=== PATIENT | female | born 1950 | race Caucasian/White ===

== ENCOUNTER 2017-08-25 00:21 | Emergency (ER) | payer OTHER, MEDICARE ==
--- NOTE | 2017-08-25 01:00 | EDM.PDOC ---
ED HPI GENERAL MEDICAL PROBLEM - General Chief Complaint: Back Pain or Injury Stated Complaint: BACK PAIN Time Seen by Provider: 08/25/17 00:57 - History of Present Illness INITIAL COMMENTS - FREE TEXT/NARRATIVE: HISTORY AND PHYSICAL: History of present illness: Patient 66-year-old female presents with concern of upper back pain is worse with movement she noticed that tonight she denies any known trauma denies numbness weakness denies chest pain shortness of breath palpitations or any other concern. Review of systems: As per history of present illness and below otherwise all systems reviewed and negative. Past medical history: As per history of present illness and as reviewed below otherwise noncontributory. Surgical history: As per history of present illness and as reviewed below otherwise noncontributory. Social history: No reported history of drug or alcohol abuse. Family history: As per history of present illness and as reviewed below otherwise noncontributory. Physical exam: HEENT: Atraumatic, normocephalic, pupils reactive, negative for conjunctival pallor or scleral icterus, mucous membranes moist, throat clear, neck supple, nontender, trachea midline. Lungs: Clear to auscultation, breath sounds equal bilaterally, chest nontender. Heart: S1S2, regular, negative for clicks, rubs, or JVD. Abdomen: Soft, nondistended, nontender. Negative for masses or hepatosplenomegaly. Negative for costovertebral tenderness. Pelvis: Stable nontender. 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: Deferred. Rectal: Deferred. Extremities: Atraumatic, negative for cords or calf pain. Neurovascular unremarkable. Neuro: Awake, alert, oriented. Cranial nerves II through XII unremarkable. Cerebellum unremarkable. Motor and sensory unremarkable throughout. Exam nonfocal. Back: Patient is some mild paravertebral tenderness of the upper thoracic spine there's no vertebral body or point tenderness Diagnostics: X-ray thoracic spine x-ray chest EKG Therapeutics: None Impression: #1 upper back pain ( probable muscle skeletal etiology) Definitive disposition and diagnosis as appropriate pending reevaluation and review of above. Lower Back Pain Score (Numeric/FACES): 6 - Related Data Allergies Allergy/AdvReac Type Severity Reaction Status Date / Time iodine Allergy Hives Verified 08/25/17 00:36 Home Meds: Home Meds Folic Acid 1 mg PO DAILY 08/25/17 [History] Methotrexate 2.5 mg PO WEEKLY 08/25/17 [History] Metoprolol Succinate 25 mg PO DAILY 08/25/17 [History] Rosuvastatin Calcium 5 mg PO DAILY 08/25/17 [History] Past Medical History HEENT History: Reports: None Cardiovascular History: Reports: High Cholesterol, Hypertension Respiratory History: Reports: None Gastrointestinal History: Reports: GERD 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 History: Reports: None [employer] FORMER History: Reports: Musculoskeletal History: Reports: RA Neurological History: Reports: None Psychiatric History: Reports: Anxiety, Depression Endocrine/Metabolic History: Reports: None Hematologic History: Reports: None Immunologic History: Reports: None Oncologic (Cancer) History: Reports: None Dermatologic History: Reports: None - Infectious Disease History Infectious Disease History: Reports: Chicken Pox - Past Surgical History Head Surgeries/Procedures: Reports: None HEENT Surgical History: Reports: None Female Surgical History: Reports: Hysterectomy Musculoskeletal Surgical History: Reports: None Social & Family History - Tobacco Use Smoking Status *Q: Never Smoker Second Hand Smoke Exposure: No - Caffeine Use Caffeine Use: Reports: Coffee - Recreational Drug Use Recreational Drug Use: No ED ROS GENERAL - Review of Systems Review Of Systems: ROS reveals no pertinent complaints other than HPI. ED EXAM, GENERAL - Physical Exam Exam: See Below (See dictation) Course - Vital Signs Last Recorded V/S: Last Vital Signs Temp 36.4 C 08/25/17 00:23 Pulse 66 08/25/17 00:23 Resp 18 08/25/17 00:23 BP 132/73 08/25/17 00:23 Pulse Ox 95 08/25/17 00:23 - Orders/Labs/Meds Orders: Active Orders 24 hr Category Date Time Status EKG Documentation Completion [RC] STAT Care 08/25/17 00:45 Active Chest 1V Frontal [CR] Stat Exams 08/25/17 00:45 Ordered Thoracic Spine 3V [CR] Stat Exams 08/25/17 00:45 Ordered Departure - Departure Time of Disposition: 00:59 Disposition: Home, Self-Care 01 Condition: Good Clinical Impression: Back pain - Discharge Information Referrals: Adrian Pierre MD [Primary Care Provider] - Additional Instructions: The following information is given to patients seen in the emergency department who are being discharged to home. This information is to outline your options for follow-up care. We provide all patients seen in our emergency department with a follow-up referral. The need for follow-up, as well as the timing and circumstances, are variable depending upon the specifics of your emergency department visit. If you don't have a primary care physician on staff, we will provide you with a referral. We always advise you to contact your personal physician following an emergency department visit to inform them of the circumstance of the visit and for follow-up with them and/or the need for any referrals to a consulting specialist. The emergency department will also refer you to a specialist when appropriate. This referral assures that you have the opportunity for followup care with a specialist. All of these measure are taken in an effort to provide you with optimal care, which includes your followup. Under all circumstances we always encourage you to contact your private physician who remains a resource for coordinating your care. When calling for followup care, please make the office aware that this follow-up is from your recent emergency room visit. If for any reason you are refused follow-up, please contact the [facility] emergency department at and asked to speak to the emergency department charge nurse. Tylenol No. 3 as prescribed follow-up private medical doctor wanted today's return as needed as discussed - My Orders Last 24 Hours: My Active Orders 08/25/17 00:45 EKG Documentation Completion [RC] STAT Chest 1V Frontal [CR] Stat Thoracic Spine 3V [CR] Stat - Assessment/Plan Last 24 Hours: My Active Orders 08/25/17 00:45 EKG Documentation Completion [RC] STAT Chest 1V Frontal [CR] Stat Thoracic Spine 3V [CR] Stat
--- NOTE | 2017-08-25 18:26 | CR ---
EXAM DATE: 08/25/17 PATIENT'S AGE: 66 Patient: EUGENE CLARKE Facility: [place], [place] Site . Site : 1950 Study: XRay Spine Thoracic [id number] 1:19:27 AM Ordering Physician: Doctor Arthur Final Report: INDICATION: Upper back pain TECHNIQUE: Thoracic spine 3 view. COMPARISON: None FINDINGS: Bones: Alignment is normal. No fractures or significant bone lesions. Joints: Disc space narrowing and degenerative changes lower thoracic spine with kyphosis. Soft tissues: Unremarkable. Miscellaneous: Hiatal hernia. IMPRESSION: Degenerative changes lower thoracic spine with kyphosis Dictated by Rigo Craig MD @ 08/25/2017 1:43:45 AM Dictated by: Rigo Craig MD @ 08/25/2017 01:43:50 (Electronic Signature) Report Signed by Proxy. [facility]
--- NOTE | 2017-08-25 18:26 | CR ---
EXAM DATE: 08/25/17 PATIENT'S AGE: 66 Patient: EUGENE CLARKE Facility: [place], [place] Site . Site : 1950 Study: XRay Chest [id number]/[id number] 1:19:04 AM Ordering Physician: Doctor Arthur Final Report: INDICATION: Upper back pain TECHNIQUE: Chest 1 view. COMPARISON: 07/10/2011 FINDINGS: Cardiovascular and mediastinum: Heart size and vasculature are normal in caliber and appearance. Mediastinum is within normal limits. Hiatal hernia. Lungs and pleural space: Scarring versus atelectasis right costophrenic angle. No sign of infiltrate or mass. No sign of pleural effusion. No pneumothorax. Bones and soft tissues: No significant findings. IMPRESSION: No acute pulmonary or cardiac abnormalities. Hiatal hernia. Dictated by Rigo Craig MD @ 08/25/2017 1:42:25 AM Dictated by: Rigo Craig MD @ 08/25/2017 01:42:32 (Electronic Signature) Report Signed by Proxy. [facility]
== END 2017-08-25 02:21 | disposition home or self-care (01) ==
LOC: MW.ED 00:21
DX: M54.6 Pain in thoracic spine (principal); I10 Essential (primary) hypertension; Z88.8 Allergy status to other drugs, medicaments and biological substances; Z79.899 Other long term (current) drug therapy
CPT/HCPCS: 71010; 71010-26; 72072; 72072-26; 93005; 99282; 99284-25

== ENCOUNTER 2017-09-01 19:01 | Emergency (ER) | payer OTHER, MEDICARE ==
[2017-09-01] MEDS ORDERED: Cyclobenzaprine 10 MG Tab PO ONE (19:54)
--- NOTE | 2017-09-01 20:00 | EDM.PDOC ---
ED HPI GENERAL MEDICAL PROBLEM - General Chief Complaint: Back Pain or Injury Stated Complaint: right side abdominal pain and back pain Time Seen by Provider: 09/01/17 19:55 Source of Information: Reports: Patient, Old Records - History of Present Illness INITIAL COMMENTS - FREE TEXT/NARRATIVE: She presents with back pain She had tylenol #3 which she stopped. She said that it gave her headaches. She declines any steroids or opioids. She has rheumatoid arthritis treated with methotrexate which she states has been very effective. The pain seems to start in her mid right back paraspinal area and radiates along the rib area anteriorly. The pain is associated with a feeling of local muscular pulling in the area. middle back Pain Score (Numeric/FACES): 8 - Related Data Allergies Allergy/AdvReac Type Severity Reaction Status Date / Time iodine Allergy Hives Verified 09/01/17 19:25 Home Meds: Home Meds Folic Acid 1 mg PO DAILY 08/25/17 [History] Methotrexate 2.5 mg PO WEEKLY 08/25/17 [History] Metoprolol Succinate 25 mg PO DAILY 08/25/17 [History] Rosuvastatin Calcium 5 mg PO DAILY 08/25/17 [History] Past Medical History - Past Health History Medical/Surgical History: Denies Medical/Surgical History HEENT History: Reports: None Cardiovascular History: Reports: High Cholesterol, Hypertension Respiratory History: Reports: None Gastrointestinal History: Reports: GERD 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 History: Reports: None [employer] History: Reports: Musculoskeletal History: Reports: RA Neurological History: Reports: None Psychiatric History: Reports: Anxiety, Depression Endocrine/Metabolic History: Reports: None Hematologic History: Reports: None Immunologic History: Reports: None Oncologic (Cancer) History: Reports: None Dermatologic History: Reports: None - Infectious Disease History Infectious Disease History: Reports: Chicken Pox - Past Surgical History Head Surgeries/Procedures: Reports: None HEENT Surgical History: Reports: None Female Surgical History: Reports: Hysterectomy Musculoskeletal Surgical History: Reports: None Social & Family History - Family History Family Medical History: Noncontributory - Tobacco Use Smoking Status *Q: Never Smoker Second Hand Smoke Exposure: No - Caffeine Use Caffeine Use: Reports: Coffee - Recreational Drug Use Recreational Drug Use: No ED ROS GENERAL - Review of Systems Review Of Systems: See Below Constitutional: Denies: Fever, Chills Respiratory: Denies: Shortness of Breath ED EXAM, UPPER BACK/NECK PAIN - Physical Exam Exam: See Below Text/Narrative:: alert some swelling bilaterally of MCP's but without tenderness area of slight discomfort just to the right lateral area of about T 9 with some radiation anteriorly along the course of the associated ninth rib No real definite tenderness but she associates this area with the pain which comes and goes and which is currently better. Course - Vital Signs Last Recorded V/S: Last Vital Signs Temp 97 F 09/01/17 19:10 Pulse 89 09/01/17 19:10 Resp 18 09/01/17 19:10 BP 124/81 09/01/17 19:10 Pulse Ox 97 09/01/17 19:10 - Orders/Labs/Meds Meds: Medications Discontinued Medications Generic Name Dose Route Start Last Admin Trade Name Freq PRN Reason Stop Dose Admin Cyclobenzaprine HCl 10 mg 09/01/17 19:54 Flexeril PO 09/01/17 19:55 ONETIME ONE Departure - Departure Time of Disposition: 19:59 Disposition: Home, Self-Care 01 Condition: Good Clinical Impression: Back pain - Discharge Information Referrals: Adrian Pierre MD [Primary Care Provider] - Additional Instructions: recheck with DR Peterson. advised that the medicine might cause some drowsiness.
== END 2017-09-01 20:44 | disposition home or self-care (01) ==
LOC: MW.ED 19:01
DX: M54.6 Pain in thoracic spine (principal); I10 Essential (primary) hypertension; E78.00 Pure hypercholesterolemia, unspecified; F32.9 Major depressive disorder, single episode, unspecified
CPT/HCPCS: 99283; A9270; 99282

== ENCOUNTER 2017-09-02 03:41 | Emergency (ER) | payer MEDICARE, OTHER ==
[2017-09-02] MEDS ORDERED: Nalbuphine 10 MG/1 ML Vial IM ONE (04:04)
--- NOTE | 2017-09-02 04:10 | EDM.PDOC ---
ED HPI GENERAL MEDICAL PROBLEM - General Chief Complaint: Back Pain or Injury Stated Complaint: BACK PAIN Time Seen by Provider: 09/02/17 04:05 Source of Information: Reports: Patient, RN - History of Present Illness INITIAL COMMENTS - FREE TEXT/NARRATIVE: She was seen here by myself a few hours ago. She fell asleep at home but then awoke with severe right sided back pain. Now the pain does not radiate around her chest but is along the right side of her thoracic spine. No reported trauma PMHx RA ROS no fever no vomiting last visit she declined any opioid pain medicines but she agrees to such now. middle back Pain Score (Numeric/FACES): 10 - Related Data Allergies Allergy/AdvReac Type Severity Reaction Status Date / Time iodine Allergy Hives Verified 09/02/17 03:43 Home Meds: Home Meds Folic Acid 1 mg PO DAILY 08/25/17 [History] Methotrexate 2.5 mg PO WEEKLY 08/25/17 [History] Metoprolol Succinate 25 mg PO DAILY 08/25/17 [History] Rosuvastatin Calcium 5 mg PO DAILY 08/25/17 [History] Aspirin 81 mg PO DAILY 09/02/17 [History] Ranitidine [Zantac] 150 mg PO BID 09/02/17 [History] Past Medical History - Past Health History Medical/Surgical History: Denies Medical/Surgical History HEENT History: Reports: None Cardiovascular History: Reports: High Cholesterol, Hypertension Respiratory History: Reports: None Gastrointestinal History: Reports: GERD 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 History: Reports: None [employer] History: Reports: Musculoskeletal History: Reports: RA Neurological History: Reports: None Psychiatric History: Reports: Anxiety, Depression Endocrine/Metabolic History: Reports: None Hematologic History: Reports: None Immunologic History: Reports: None Oncologic (Cancer) History: Reports: None Dermatologic History: Reports: None - Infectious Disease History Infectious Disease History: Reports: Chicken Pox - Past Surgical History Head Surgeries/Procedures: Reports: None HEENT Surgical History: Reports: None Female Surgical History: Reports: Hysterectomy Musculoskeletal Surgical History: Reports: None Social & Family History - Family History Family Medical History: Noncontributory - Tobacco Use Smoking Status *Q: Never Smoker Second Hand Smoke Exposure: No - Caffeine Use Caffeine Use: Reports: Coffee - Recreational Drug Use Recreational Drug Use: No ED ROS GENERAL - Review of Systems Review Of Systems: See Below (as per HPI) ED EXAM, UPPER BACK/NECK PAIN - Physical Exam Exam: See Below Text/Narrative:: alert appears uncomfortable neck supple right paravertebral musculature tender from about T 4 to T 10 normal mentation Course - Vital Signs Last Recorded V/S: Last Vital Signs Temp 97.8 F 09/02/17 03:41 Pulse 125 H 09/02/17 03:41 Resp 20 09/02/17 03:41 BP 123/67 09/02/17 03:41 Pulse Ox 96 09/02/17 03:41 - Orders/Labs/Meds Meds: Medications Discontinued Medications Generic Name Dose Route Start Last Admin Trade Name Freq PRN Reason Stop Dose Admin Nalbuphine HCl 20 mg 09/02/17 04:04 Nubain IM 09/02/17 04:05 ONETIME ONE Departure - Departure Time of Disposition: 04:07 Disposition: Home, Self-Care 01 Condition: Fair Clinical Impression: Back pain - Discharge Information Referrals: Adrian Pierre MD [Primary Care Provider] - Forms: ED Department Discharge Additional Instructions: norco may cause drowsiness, constipation and be habit forming. Do not use tylenol with norco follow up if not improving.
== END 2017-09-02 04:42 | disposition home or self-care (01) ==
LOC: MW.ED 03:41
DX: M54.6 Pain in thoracic spine (principal); I10 Essential (primary) hypertension; E78.00 Pure hypercholesterolemia, unspecified; F32.9 Major depressive disorder, single episode, unspecified; Z79.82 Long term (current) use of aspirin; Z79.899 Other long term (current) drug therapy; Z88.8 Allergy status to other drugs, medicaments and biological substances
CPT/HCPCS: 96372; 99283; J2300

== ENCOUNTER 2017-09-07 17:08 | Observation (INO) | payer OTHER, MEDICARE ==
[2017-09-07] MEDS ORDERED: Sodium Chloride 0.9% 1,000 ML IV ONE (17:56)
[2017-09-07] MEDS ORDERED: Sodium Chloride 0.9% 10 ML Syringe FLUSH PRN (17:56)
[2017-09-07] MEDS ORDERED: Sodium Chloride 0.9% 2.5 ML Syringe FLUSH PRN (17:56)
--- NOTE | 2017-09-07 18:01 | EDM.PDOC ---
ED HPI GENERAL MEDICAL PROBLEM - General Chief Complaint: General Stated Complaint: HARD TIME BREATHING Time Seen by Provider: 09/07/17 17:47 - History of Present Illness INITIAL COMMENTS - FREE TEXT/NARRATIVE: HISTORY AND PHYSICAL: History of present illness: The patient is a 66-year-old female with a history of hypertension and rheumatoid arthritis for which she takes metoprolol and methotrexate and who presents with several weeks of poor appetite and an acceleration of these symptoms over the last 10 days where she has not been eating and drinking very much at all due to anorexia. The patient that she has been forcing herself to eat and has been trying to drink fluids but she knows that she is "dehydrated" . She's had nasal congestion and sinus drainage for the last one month and at the beginning of August she had an upper respiratory infection for which she followed up with a provider at [facility] [address]. She was seen in our emergency department at the end of August 3 times over a one-week period for back pain and given medication and she has seen a chiropractor just several days ago who did a correction on her ribs and she has felt much better from that perspective. The patient denies any headache or fever she has no cough or chest pain and no shortness of breath. She's making urine but less than usual and there is no urinary pain. She has no nausea or vomiting doesn't have fullness or bloating of her abdomen is no abdominal pain. She's having small bowel movements. Patient says she tolerates by mouth but just doesn't have a desire to eat or drink. She last saw her primary care physician a week and a half ago for knee pain and he gave her a steroid injection but she did not discuss with him these other symptoms. SHe also lightheaded and has generalized weakness but is not passing out or blacking out. She currently has no back pain. Patient does not have palpitations Although the patient never complained of shortness of breath to me or in this past 10 days she was noted to be somewhat short of breath when walking back to the room by nursing Please note that the patient has been seen twice at [facility] [address], once by Dr. Isaac, at the beginning of August for the cold and congestion she had and once by Dr. Pierre approximately 7-10 days ago for her knee pain for which she received that steroid injection. [facility] the end of August for the back pain and once by the chiropractor 2 days ago. Throughout all of these visits the patient says that she has never mentioned to any of these providers about her lack of appetite and poor by mouth intake and feelings of dehydration. Review of systems: As per history of present illness and below otherwise all systems reviewed and negative. Past medical history: As per history of present illness and as reviewed below otherwise noncontributory. Surgical history: As per history of present illness and as reviewed below otherwise noncontributory. Social history: No reported history of drug or alcohol abuse. Family history: As per history of present illness and as reviewed below otherwise noncontributory. Physical exam: General: Well-developed well-nourished female who moves easily in the ED without distress vital signs of the note by me HEENT: Atraumatic, normocephalic, pupils reactive, negative for conjunctival pallor or scleral icterus, mucous membranes tacky throat clear, neck supple, nontender, trachea midline. Lungs: Clear to auscultation, breath sounds equal bilaterally, chest nontender. Heart: S1S2, regular rhythm but tachycardic rate on my evaluation, negative for clicks, rubs, or JVD. Abdomen: Soft, nondistended, nontender. Bowel sounds are hypoactive and there is no tympany on percussion Negative for masses or hepatosplenomegaly. Negative for costovertebral tenderness. Pelvis: Stable nontender. 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: Deferred. Rectal: Deferred. Extremities: Atraumatic, negative for cords or calf pain. Neurovascular unremarkable. Full range of motion without defects or deficits Neuro: Awake, alert, oriented. Cranial nerves II through XII unremarkable. Cerebellum unremarkable. Motor and sensory unremarkable throughout. Exam nonfocal. Diagnostics: EKG CBC CMP amylase lipase UA urine culture if indicated TSH chest x-ray orthostatic vitals Therapeutics: IV O2 monitor IV fluids These note that patient had positive orthostatic vitals by both pulse and blood pressure. But she had no dizziness or lightheadedness with those changes. Please also note that the patient had rest and the bed was noted to drop her sats to 8990% but was not dysmetric and does not complain of any shortness of breath. Oxygen was applied and her sats bumped up easily. 1915: Case was discussed with the hospitalist Dr. Wilson who agrees to observation admission and does not request blood cultures or lactic acid level and requests Rocephin and Zithromax to be given. The case was also discussed with the patient who is aware of the findings and agrees to the admission. She still has not produced urine which will need to be collected on the floor. Impression: Right basilar pneumonia with Clinical Dehydration and Orthostasis, history of anorexia Definitive disposition and diagnosis as appropriate pending reevaluation and review of above. - Related Data Allergies Allergy/AdvReac Type Severity Reaction Status Date / Time iodine Allergy Hives Verified 09/07/17 17:42 Home Meds: Home Meds Folic Acid 1 mg PO DAILY 08/25/17 [History] Methotrexate 2.5 mg PO WEEKLY 08/25/17 [History] Metoprolol Succinate 25 mg PO DAILY 08/25/17 [History] Rosuvastatin Calcium 5 mg PO DAILY 08/25/17 [History] Aspirin 81 mg PO DAILY 09/02/17 [History] Ranitidine [Zantac] 150 mg PO BID 09/02/17 [History] Past Medical History - Past Health History Medical/Surgical History: Denies Medical/Surgical History HEENT History: Reports: None Cardiovascular History: Reports: High Cholesterol, Hypertension Respiratory History: Reports: None Gastrointestinal History: Reports: GERD 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 History: Reports: None 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: Musculoskeletal History: Reports: RA Neurological History: Reports: None Psychiatric History: Reports: Anxiety, Depression Endocrine/Metabolic History: Reports: None Hematologic History: Reports: None Immunologic History: Reports: None Oncologic (Cancer) History: Reports: None Dermatologic History: Reports: None - Infectious Disease History Infectious Disease History: Reports: Chicken Pox, Measles, Mumps - Past Surgical History Head Surgeries/Procedures: Reports: None HEENT Surgical History: Reports: None Female Surgical History: Reports: Hysterectomy Musculoskeletal Surgical History: Reports: None Social & Family History - Family History Family Medical History: Noncontributory - Tobacco Use Smoking Status *Q: Never Smoker Second Hand Smoke Exposure: No - Caffeine Use Caffeine Use: Reports: Coffee - Recreational Drug Use Recreational Drug Use: No ED ROS GENERAL - Review of Systems Review Of Systems: ROS reveals no pertinent complaints other than HPI. ED EXAM, GENERAL - Physical Exam Exam: See Below (See dictation) Course - Vital Signs Last Recorded V/S: Last Vital Signs Temp 37.4 C 09/07/17 17:39 Pulse 134 H 09/07/17 17:39 Resp 18 09/07/17 17:39 BP 135/85 09/07/17 17:39 Pulse Ox 95 09/07/17 17:39 Orthostatic Blood Pressure [ 95/51 Standing] Orthostatic Blood Pressure [ 112/62 Sitting] Orthostatic Blood Pressure [ 126/83 Supine] - Orders/Labs/Meds Orders: Active Orders 24 hr Category Date Time Status Patient Status [ADT] Stat ADT 09/07/17 19:24 Ordered Cardiac Monitoring [RC] . DIRECTED Care 09/07/17 17:55 Active EKG Documentation Completion [RC] STAT Care 09/07/17 17:55 Active Orthostatic Vital Signs [RC] ASDIRECTED Care 09/07/17 17:56 Active Oxygen Therapy, ED [RC] ASDIRECTED Care 09/07/17 17:55 Active Pulse Oximetry [RC] ASDIRECTED Care 09/07/17 17:55 Active Chest 2V [CR] Stat Exams 09/07/17 17:56 Taken UA W/MICROSCOPIC [URIN] Stat Lab 09/07/17 17:55 Uncollected Azithromycin [Zithromax] Med 09/07/17 19:23 Once 500 mg PO ONETIME ONE Sodium Chloride 0.9% [Normal Saline] 1,000 ml Med 09/07/17 19:15 Active IV ASDIRECTED Sodium Chloride 0.9% [Saline Flush] Med 09/07/17 17:56 Active 10 ml FLUSH ASDIRECTED PRN Sodium Chloride 0.9% [Saline Flush] Med 09/07/17 17:56 Active 2.5 ml FLUSH ASDIRECTED PRN cefTRIAXone [Rocephin in Dextrose,Iso-Osm 1 GM/50 ML] 1 Med 09/07/17 19:23 Ordered gm Premix Bag 1 bag IV ONETIME Saline Lock Insert [OM.PC] Stat Oth 09/07/17 17:55 Ordered Medication Orders Sodium Chloride (Normal Saline) 1,000 mls @ 125 mls/hr IV ASDIRECTED MARRY Sodium Chloride (Saline Flush) 10 ml FLUSH ASDIRECTED PRN PRN Reason: Keep Vein Open Last Admin: 09/07/17 18:22 Dose: 10 ml Sodium Chloride (Saline Flush) 2.5 ml FLUSH ASDIRECTED PRN PRN Reason: Keep Vein Open Last Admin: 09/07/17 18:22 Dose: 2.5 ml Labs: Laboratory Tests 09/07/17 09/07/17 Range/Units 18:07 18:07 WBC 8.64 (4.0-11.0) K/uL RBC 4.66 (4.30-5.90) M/uL Hgb 13.4 (12.0-16.0) g/dL Hct 40.8 (36.0-46.0) % MCV 87.6 (80.0-98.0) fL MCH 28.8 (27.0-32.0) pg MCHC 32.8 (31.0-37.0) g/dL RDW Std Deviation 43.5 (28.0-62.0) fl RDW Coeff of Mert 14 (11.0-15.0) % Plt Count 381 (150-400) K/uL MPV 9.10 (7.40-12.00) fL Neut % (Auto) 72.0 (48.0-80.0) % Lymph % (Auto) 18.3 (16.0-40.0) % [place] % (Auto) 8.2 (0.0-15.0) % Eos % (Auto) 1.2 (0.0-7.0) % Baso % (Auto) 0.3 (0.0-1.5) % Neut # (Auto) 6.2 H (1.4-5.7) K/uL Lymph # (Auto) 1.6 (0.6-2.4) K/uL [place] # (Auto) 0.7 (0.0-0.8) K/uL Eos # (Auto) 0.1 (0.0-0.7) K/uL Baso # (Auto) 0.0 (0.0-0.1) K/uL Nucleated RBC % 0.0 /100WBC Nucleated RBCs # 0 K/uL Sodium 140 (136-146) mmol/L Potassium 3.8 (3.5-5.1) mmol/L Chloride 105 (98-110) mmol/L Carbon Dioxide 22 (21-31) mmol/L BUN 8 (6.0-23.0) mg/dL Creatinine 0.7 (0.6-1.5) mg/dL Est Cr Clr Drug Dosing 58.85 mL/min Estimated GFR (MDRD) > 60.0 ml/min Glucose 120 H (60-110) mg/dL Calcium 9.9 (8.8-10.8) mg/dL Total Bilirubin 0.3 (0.1-1.5) mg/dL AST 20 (5-40) IU/L ALT 26 (8-54) IU/L Alkaline Phosphatase 147 (40-150) Total Protein 7.7 (6.0-8.0) g/dL Albumin 3.7 (3.4-4.8) g/dL Globulin 4.0 H (2.0-3.5) g/dL Albumin/Globulin Ratio 0.9 L (1.3-2.8) Amylase 57 (10-90) U/L Lipase 32 (7-80) U/L TSH 3rd Generation 3.19 (0.47-5.0) uIU/mL Meds: Medications Generic Name Dose Route Start Last Admin Trade Name Freq PRN Reason Stop Dose Admin Sodium Chloride 1,000 mls @ 125 mls/hr 09/07/17 19:15 Normal Saline IV ASDIRECTED MARRY Sodium Chloride 10 ml 09/07/17 17:56 09/07/17 18:22 Saline Flush FLUSH 10 ml ASDIRECTED PRN Administration Keep Vein Open Sodium Chloride 2.5 ml 09/07/17 17:56 09/07/17 18:22 Saline Flush FLUSH 2.5 ml ASDIRECTED PRN Administration Keep Vein Open Discontinued Medications Generic Name Dose Route Start Last Admin Trade Name Freq PRN Reason Stop Dose Admin Sodium Chloride 1,000 mls @ 999 mls/hr 09/07/17 17:56 09/07/17 18:23 Normal Saline IV 09/07/17 18:56 999 mls/hr STAT ONE Administration Departure - Departure Time of Disposition: 19:26 Disposition: Refer to Observation Condition: Good Clinical Impression: Orthostasis Pneumonia Qualifiers: Pneumonia type: due to unspecified organism Laterality: right Lung location: lower lobe of lung Qualified Code(s): J18.1 - Lobar pneumonia, unspecified organism - Discharge Information Referrals: Adrian Pierre MD [Primary Care Provider] - Forms: ED Department Discharge - My Orders Last 24 Hours: My Active Orders 09/07/17 17:55 Cardiac Monitoring [RC] . DIRECTED EKG Documentation Completion [RC] STAT Oxygen Therapy, ED [RC] ASDIRECTED Pulse Oximetry [RC] ASDIRECTED UA W/MICROSCOPIC [URIN] Stat Saline Lock Insert [OM.PC] Stat 09/07/17 17:56 Orthostatic Vital Signs [RC] ASDIRECTED Chest 2V [CR] Stat Sodium Chloride 0.9% [Saline Flush] 10 ml FLUSH ASDIRECTED PRN Sodium Chloride 0.9% [Saline Flush] 2.5 ml FLUSH ASDIRECTED PRN 09/07/17 19:15 Sodium Chloride 0.9% [Normal Saline] 1,000 ml IV ASDIRECTED 09/07/17 19:23 Azithromycin [Zithromax] 500 mg PO ONETIME ONE cefTRIAXone [Rocephin in Dextrose,Iso-Osm 1 GM/50 ML] 1 gm Premix Bag 1 bag IV ONETIME 09/07/17 19:24 Patient Status [ADT] Stat - Assessment/Plan Last 24 Hours: My Active Orders 09/07/17 17:55 Cardiac Monitoring [RC] . DIRECTED EKG Documentation Completion [RC] STAT Oxygen Therapy, ED [RC] ASDIRECTED Pulse Oximetry [RC] ASDIRECTED UA W/MICROSCOPIC [URIN] Stat Saline Lock Insert [OM.PC] Stat 09/07/17 17:56 Orthostatic Vital Signs [RC] ASDIRECTED Chest 2V [CR] Stat Sodium Chloride 0.9% [Saline Flush] 10 ml FLUSH ASDIRECTED PRN Sodium Chloride 0.9% [Saline Flush] 2.5 ml FLUSH ASDIRECTED PRN 09/07/17 19:15 Sodium Chloride 0.9% [Normal Saline] 1,000 ml IV ASDIRECTED 09/07/17 19:23 Azithromycin [Zithromax] 500 mg PO ONETIME ONE cefTRIAXone [Rocephin in Dextrose,Iso-Osm 1 GM/50 ML] 1 gm Premix Bag 1 bag IV ONETIME 09/07/17 19:24 Patient Status [ADT] Stat
[2017-09-07 18:33] LABS: CHLORIDE,CL 105 mmol/L (98-110); SODIUM,NA 140 mmol/L (136-146)
[2017-09-07] MEDS ORDERED: Azithromycin 250 MG Tab PO ONE (19:23)
[2017-09-07] MEDS ORDERED: cefTRIAXone 1 GM in Premix Bag 1 BAG IV ONE (19:23)
[2017-09-07] MEDS: Sodium Chloride 0.9% 1,000 ML IV SCH (19:54)
--- NOTE | 2017-09-07 19:57 | PCM.HP ---
H&P History of Present Illness - General Admit Problem/Dx: Admission Diagnosis/Problem Admission Diagnosis/Problem Pneumonia - History of Present Illness Initial Comments - Free Text/Narative: 66 yo female with pmh of hypertension and RA, who presents to the ED with complaints of feeling dehydrated. She reports poor appetite for past several weeks with nasal congestion. She denies any shortness of breath, cough or fevers. She was noted in the ED to have orthostatic hypotension with drop of blood pressure of 112/62 to 95/51. CXR reported right basilar pneumonia. She was given IV fluids, rocephin and azithromycin and referred to hospital for observation. - Related Data Allergies/Adverse Reactions: Allergies Allergy/AdvReac Type Severity Reaction Status Date / Time iodine Allergy Hives Verified 09/07/17 17:42 Home Medications: Home Meds Folic Acid 1 mg PO DAILY 08/25/17 [History] Methotrexate 2.5 mg PO WEEKLY 08/25/17 [History] Metoprolol Succinate 25 mg PO DAILY 08/25/17 [History] Rosuvastatin Calcium 5 mg PO DAILY 08/25/17 [History] Aspirin 81 mg PO DAILY 09/02/17 [History] Ranitidine [Zantac] 150 mg PO BID 09/02/17 [History] Azithromycin [IJD: Azithromycin] 250 mg PO DAILY 4 Days #4 tab 09/08/17 [Rx] Past Medical History - Past Health History Medical/Surgical History: Denies Medical/Surgical History HEENT History: Reports: None Cardiovascular History: Reports: High Cholesterol, Hypertension Respiratory History: Reports: None Gastrointestinal History: Reports: GERD 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 History: Reports: None 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: Musculoskeletal History: Reports: RA Neurological History: Reports: None Psychiatric History: Reports: Anxiety, Depression Endocrine/Metabolic History: Reports: None Hematologic History: Reports: None Immunologic History: Reports: None Oncologic (Cancer) History: Reports: None Dermatologic History: Reports: None - Infectious Disease History Infectious Disease History: Reports: Chicken Pox, Measles, Mumps - Past Surgical History Head Surgeries/Procedures: Reports: None HEENT Surgical History: Reports: None Female Surgical History: Reports: Hysterectomy Musculoskeletal Surgical History: Reports: None Social & Family History - Family History Family Medical History: Noncontributory - Tobacco Use Smoking Status *Q: Never Smoker Second Hand Smoke Exposure: No - Caffeine Use Caffeine Use: Reports: Coffee - Recreational Drug Use Recreational Drug Use: No H&P Review of Systems - Review of Systems: Review Of Systems: ROS reveals no pertinent complaints other than HPI. Exam - Exam Exam: See Below - Vital Signs Vital Signs: Last Vital Signs Temp 37.4 C 09/07/17 17:39 Pulse 134 H 09/07/17 17:39 Resp 18 09/07/17 17:39 BP 135/85 09/07/17 17:39 Pulse Ox 95 09/07/17 17:39 Orthostatic Blood Pressure [ 95/51 Standing] Orthostatic Blood Pressure [ 112/62 Sitting] Orthostatic Blood Pressure [ 126/83 Supine] Weight: 68.2 kg - Exam General: Alert, Oriented, 4 HEENT: Mucosa Moist & [place] Lungs: Clear to Auscultation, Normal Respiratory Effort Cardiovascular: Regular Rate, Regular Rhythm GI/Abdominal Exam: Soft, Non-Tender Extremities: Non-Tender, No Pedal Edema Skin: Warm, Dry, Intact Neurological: No: Focal Deficit - Patient Data Lab Results Last 24 hrs: Laboratory Results - last 24 hr 09/07/17 09/07/17 Range/Units 18:07 18:07 WBC 8.64 (4.0-11.0) K/uL RBC 4.66 (4.30-5.90) M/uL Hgb 13.4 (12.0-16.0) g/dL Hct 40.8 (36.0-46.0) % MCV 87.6 (80.0-98.0) fL MCH 28.8 (27.0-32.0) pg MCHC 32.8 (31.0-37.0) g/dL RDW Std Deviation 43.5 (28.0-62.0) fl RDW Coeff of Mert 14 (11.0-15.0) % Plt Count 381 (150-400) K/uL MPV 9.10 (7.40-12.00) fL Neut % (Auto) 72.0 (48.0-80.0) % Lymph % (Auto) 18.3 (16.0-40.0) % [place] % (Auto) 8.2 (0.0-15.0) % Eos % (Auto) 1.2 (0.0-7.0) % Baso % (Auto) 0.3 (0.0-1.5) % Neut # (Auto) 6.2 H (1.4-5.7) K/uL Lymph # (Auto) 1.6 (0.6-2.4) K/uL [place] # (Auto) 0.7 (0.0-0.8) K/uL Eos # (Auto) 0.1 (0.0-0.7) K/uL Baso # (Auto) 0.0 (0.0-0.1) K/uL Nucleated RBC % 0.0 /100WBC Nucleated RBCs # 0 K/uL Sodium 140 (136-146) mmol/L Potassium 3.8 (3.5-5.1) mmol/L Chloride 105 (98-110) mmol/L Carbon Dioxide 22 (21-31) mmol/L BUN 8 (6.0-23.0) mg/dL Creatinine 0.7 (0.6-1.5) mg/dL Est Cr Clr Drug Dosing 58.85 mL/min Estimated GFR (MDRD) > 60.0 ml/min Glucose 120 H (60-110) mg/dL Calcium 9.9 (8.8-10.8) mg/dL Total Bilirubin 0.3 (0.1-1.5) mg/dL AST 20 (5-40) IU/L ALT 26 (8-54) IU/L Alkaline Phosphatase 147 (40-150) Total Protein 7.7 (6.0-8.0) g/dL Albumin 3.7 (3.4-4.8) g/dL Globulin 4.0 H (2.0-3.5) g/dL Albumin/Globulin Ratio 0.9 L (1.3-2.8) Amylase 57 (10-90) U/L Lipase 32 (7-80) U/L TSH 3rd Generation 3.19 (0.47-5.0) uIU/mL Result Diagrams: 09/08/17 06:20 09/08/17 06:20 *Q Meaningful Use (ADM) - VTE *Q VTE Criteria *Q: - Stroke *Q Stroke Criteria *Q: - AMI *Q AMI Criteria *Q: Problem List Initiated/Reviewed/Updated: Yes Orders Last 24hrs: Active Orders 24 hr Category Date Time Status Patient Status [ADT] Stat ADT 09/07/17 19:24 Active Antiembolic Devices [RC] PER UNIT ROUTINE Care 09/07/17 19:51 Ordered Cardiac Monitoring [RC] . DIRECTED Care 09/07/17 17:55 Active EKG Documentation Completion [RC] STAT Care 09/07/17 17:55 Active Orthostatic Vital Signs [RC] ASDIRECTED Care 09/07/17 17:56 Active Oxygen Therapy [RC] PRN Care 09/07/17 19:50 Ordered Oxygen Therapy, ED [RC] ASDIRECTED Care 09/07/17 17:55 Active Pulse Oximetry [RC] ASDIRECTED Care 09/07/17 17:55 Active Up ad Katie [RC] ASDIRECTED Care 09/07/17 19:50 Ordered VTE/DVT Education [RC] PER UNIT ROUTINE Care 09/07/17 19:50 Ordered Vital Signs [RC] Q4H Care 09/07/17 19:50 Ordered Regular Diet [DIET] Diet 09/07/17 Breakfast Ordered Chest 2V [CR] Stat Exams 09/07/17 17:56 Taken BASIC METABOLIC PANEL,BMP [CHEM] AM Lab 09/08/17 05:11 Ordered CBC WITH AUTO DIFF [HEME] AM Lab 09/08/17 05:11 Ordered UA W/MICROSCOPIC [URIN] Stat Lab 09/07/17 17:55 Uncollected Enoxaparin [Lovenox] Med 09/08/17 09:00 Ordered 40 mg SUBCUT DAILY Sodium Chloride 0.9% [Normal Saline] 1,000 ml Med 09/07/17 19:15 Active IV ASDIRECTED Sodium Chloride 0.9% [Saline Flush] Med 09/07/17 17:56 Active 10 ml FLUSH ASDIRECTED PRN Sodium Chloride 0.9% [Saline Flush] Med 09/07/17 17:56 Active 2.5 ml FLUSH ASDIRECTED PRN Saline Lock Insert [OM.PC] Stat Oth 09/07/17 17:55 Ordered Sequential Compression Device [OM.PC] Per Unit Routine Oth 09/07/17 19:51 Ordered Resuscitation Status Routine Resus Stat 09/07/17 19:50 Ordered Medication Orders Enoxaparin Sodium (Lovenox) 40 mg SUBCUT DAILY MARRY Sodium Chloride (Normal Saline) 1,000 mls @ 125 mls/hr IV ASDIRECTED MARRY Sodium Chloride (Saline Flush) 10 ml FLUSH ASDIRECTED PRN PRN Reason: Keep Vein Open Last Admin: 09/07/17 18:22 Dose: 10 ml Sodium Chloride (Saline Flush) 2.5 ml FLUSH ASDIRECTED PRN PRN Reason: Keep Vein Open Last Admin: 09/07/17 18:22 Dose: 2.5 ml Assessment/Plan Comment:: 66 yo female admitted for dehydration and possible pneumonia. Will continue IV fluids and monitor overnight. She has received Rocephin and azithromycin.
[2017-09-07] MEDS: Calcium Carbonate 500 MG Tab.Chew PO PRN (23:15)
[2017-09-08] MEDS: Sodium Chloride 0.9% 1,000 ML IV SCH (04:56)
[2017-09-08 07:08] LABS: CHLORIDE,CL 110 mmol/L (98-110); SODIUM,NA 144 mmol/L (136-146)
[2017-09-08] MEDS: Calcium Carbonate 500 MG Tab.Chew PO PRN (07:12)
[2017-09-08] MEDS ORDERED: Enoxaparin 40 MG/0.4 ML Syringe SUBCUT SCH (09:00)
--- NOTE | 2017-09-08 11:56 | PCM.DCSUM1 ---
<Walt Fuller - Last Filed: 09/08/17 11:51> Discharge Summary - Hospital Course Free Text/Narrative:: Admission date September 07, 2017 discharge date September 08, 2017 Admission diagnosis #1. Dehydration #2. Community-acquired pneumonia Discharge diagnosis #1. Dehydration improved #2. Community-acquired pneumonia as per chest x-ray that is stable Hospital course 66-year-old female that presented to the emergency department on September 07 complaining of several weeks of decreased appetite who was found to have orthostatic vital signs consistent with dehydration and a chest x-ray indicating a right basilar pneumonia. She was admitted for observation, started on IV normal saline along with azithromycin and Rocephin. When examined the next morning, this patient stated that she felt better and felt comfortable being discharged. She was discharged home on a 4 day course of Zithromax 250 mg by mouth daily. At the time of discharge she denied having any shortness of breath, fevers or chills or cough. Her labs appear to be unremarkable. She has an appointment scheduled with her primary care provider Dr. Pierre for September 09. She was advised that given her symptoms don't typically correlate with a pneumonia, and with the decreased appetite that a repeat chest x-ray or other imaging intervention should be a possibility in a month or so to rule out other etiologies of the chest x-ray findings such as lung cancer. Follow-up: Patient to follow with Dr. Pierre her primary care provider Return precautions: Patient is to return if she expresses any shortness of breath, fevers, chills, nausea or vomiting. Patient agrees to the plan. - Discharge Data Discharge Date: 09/08/17 Discharge Disposition: Home, Self-Care 01 Condition: Fair - Patient Instructions Diet: Usual Diet as Tolerated Driving: May Drive Today Notify Provider of: Fever, Nausea and/or Vomiting Other/Special Instructions: shortness of breath, chest pain - Discharge Plan Prescriptions/Med Rec: Azithromycin [IJD: Azithromycin] 250 mg PO DAILY 4 Days #4 tab Home Medications: Home Meds Folic Acid 1 mg PO DAILY 08/25/17 [History] Methotrexate 2.5 mg PO WEEKLY 08/25/17 [History] Metoprolol Succinate 25 mg PO DAILY 08/25/17 [History] Rosuvastatin Calcium 5 mg PO DAILY 08/25/17 [History] Aspirin 81 mg PO DAILY 09/02/17 [History] Ranitidine [Zantac] 150 mg PO BID 09/02/17 [History] Azithromycin [IJD: Azithromycin] 250 mg PO DAILY 4 Days #4 tab 09/08/17 [Rx] Patient Handouts: Azithromycin tablets, Community-Acquired Pneumonia, Adult, [id number] Referrals: Adrian Pierre MD [Primary Care Provider] - 09/16/17 10:00 am - Discharge Summary/Plan Comment DC Time >30 min.: No Discharge Summary/Plan Comment: Admission date September 07, 2017 discharge date September 08, 2017 Admission diagnosis #1. Dehydration #2. Community-acquired pneumonia Discharge diagnosis #1. Dehydration improved #2. Community-acquired pneumonia as per chest x-ray that is stable Hospital course 66-year-old female that presented to the emergency department on September 07 complaining of several weeks of decreased appetite who was found to have orthostatic vital signs consistent with dehydration and a chest x-ray indicating a right basilar pneumonia. She was admitted for observation, started on IV normal saline along with azithromycin and Rocephin. When examined the next morning, this patient stated that she felt better and felt comfortable being discharged. She was discharged home on a 4 day course of Zithromax 250 mg by mouth daily. At the time of discharge she denied having any shortness of breath, fevers or chills or cough. Her labs appear to be unremarkable. She has an appointment scheduled with her primary care provider Dr. Pierre for September 09. She was advised that given her symptoms don't typically correlate with a pneumonia, and with the decreased appetite that a repeat chest x-ray or other imaging intervention should be a possibility in a month or so to rule out other etiologies of the chest x-ray findings such as lung cancer. Follow-up: Patient to follow with Dr. Pierre her primary care provider Return precautions: Patient is to return if she expresses any shortness of breath, fevers, chills, nausea or vomiting. Patient agrees to the plan. - Patient Data Vitals - Most Recent: Last Vital Signs Temp 37.3 C 09/08/17 08:00 Pulse 76 09/08/17 08:00 Resp 16 09/08/17 08:00 BP 124/78 09/08/17 08:00 Pulse Ox 94 L 09/08/17 08:00 Weight - Most Recent: 71.1 kg I&O - Last 24 hours: Intake & Output 09/07/17 09/08/17 09/08/17 22:59 06:59 14:59 Intake Total 1003 240 Output Total 500 550 Balance 503 -310 Lab Results - Last 24 hrs: Laboratory Results - last 24 hr 09/07/17 09/08/17 09/08/17 Range/Units 21:30 06:20 06:20 WBC 6.26 (4.0-11.0) K/uL RBC 4.29 L (4.30-5.90) M/uL Hgb 12.2 (12.0-16.0) g/dL Hct 38.1 (36.0-46.0) % MCV 88.8 (80.0-98.0) fL MCH 28.4 (27.0-32.0) pg MCHC 32.0 (31.0-37.0) g/dL RDW Std Deviation 45.8 (28.0-62.0) fl RDW Coeff of Mert 14 (11.0-15.0) % Plt Count 344 (150-400) K/uL MPV 8.90 (7.40-12.00) fL Neut % (Auto) 59.2 (48.0-80.0) % Lymph % (Auto) 26.5 (16.0-40.0) % [place] % (Auto) 9.9 (0.0-15.0) % Eos % (Auto) 3.8 (0.0-7.0) % Baso % (Auto) 0.6 (0.0-1.5) % Neut # (Auto) 3.7 (1.4-5.7) K/uL Lymph # (Auto) 1.7 (0.6-2.4) K/uL [place] # (Auto) 0.6 (0.0-0.8) K/uL Eos # (Auto) 0.2 (0.0-0.7) K/uL Baso # (Auto) 0.0 (0.0-0.1) K/uL Nucleated RBC % 0.0 /100WBC Nucleated RBCs # 0 K/uL Sodium 144 (136-146) mmol/L Potassium 4.0 (3.5-5.1) mmol/L Chloride 110 (98-110) mmol/L Carbon Dioxide 25 (21-31) mmol/L BUN 6 (6.0-23.0) mg/dL Creatinine 0.7 (0.6-1.5) mg/dL Est Cr Clr Drug Dosing 58.85 mL/min Estimated GFR (MDRD) > 60.0 ml/min Glucose 92 (60-110) mg/dL Calcium 8.8 (8.8-10.8) mg/dL Urine Color YELLOW Urine Appearance HAZY Urine pH 6.0 (5.0-8.0) Ur Specific [place] <= 1.005 (1.001-1.035) Urine Protein NEGATIVE (NEGATIVE) mg/dL Urine Glucose (UA) NEGATIVE (NEGATIVE) mg/dL Urine Ketones NEGATIVE (NEGATIVE) mg/dL Urine Occult Blood NEGATIVE (NEGATIVE) Urine Nitrite NEGATIVE (NEGATIVE) Urine Bilirubin NEGATIVE (NEGATIVE) Urine Urobilinogen 0.2 (<2.0) EU/dL Ur Leukocyte Esterase SMALL (NEGATIVE) Urine RBC 0-2 (0-2/HPF) Urine WBC 4-7 (0-5/HPF) Ur Epithelial Cells OCCASIONAL (NONE-FEW) Ur Renal Epithelial Cell RARE Urine Bacteria FEW (NEGATIVE) Med Orders - Current: Current Medications Discontinued Medications Azithromycin (Zithromax) 500 mg PO ONETIME ONE Stop: 09/07/17 19:24 Last Admin: 09/07/17 19:59 Dose: 500 mg Calcium Carbonate/Glycine (Tums) 0 mg PO TID PRN PRN Reason: Indigestion Last Admin: 09/08/17 07:12 Dose: 1,000 mg Enoxaparin Sodium (Lovenox) 40 mg SUBCUT DAILY [facility] Last Admin: 09/08/17 08:18 Dose: 40 mg Sodium Chloride (Normal Saline) 1,000 mls @ 999 mls/hr IV STAT ONE Stop: 09/07/17 18:56 Last Admin: 09/07/17 18:23 Dose: 999 mls/hr Sodium Chloride (Normal Saline) 1,000 mls @ 125 mls/hr IV ASDIRECTED [facility] Last Admin: 09/08/17 04:56 Dose: 125 mls/hr Ceftriaxone Sodium/Dextrose 1 (gm/ Premix) 50 mls @ 100 mls/hr IV ONETIME ONE Stop: 09/07/17 19:52 Last Admin: 09/07/17 20:00 Dose: 100 mls/hr Sodium Chloride (Saline Flush) 10 ml FLUSH ASDIRECTED PRN PRN Reason: Keep Vein Open Last Admin: 09/07/17 18:22 Dose: 10 ml Sodium Chloride (Saline Flush) 2.5 ml FLUSH ASDIRECTED PRN PRN Reason: Keep Vein Open Last Admin: 09/07/17 18:22 Dose: 2.5 ml *Q Meaningful Use (DIS) - VTE *Q VTE Criteria *Q: - Stroke *Q Stroke Criteria *Q: - AMI *Q AMI Criteria *Q: <Khoa Wilson - Last Filed: 09/08/17 14:24> - Patient Data Vitals - Most Recent: Last Vital Signs Temp 37.3 C 09/08/17 08:00 Pulse 76 09/08/17 08:00 Resp 16 09/08/17 08:00 BP 124/78 09/08/17 08:00 Pulse Ox 94 L 09/08/17 08:00 I&O - Last 24 hours: Intake & Output 09/07/17 09/08/17 09/08/17 22:59 06:59 14:59 Intake Total 1003 240 Output Total 500 550 Balance 503 -310 Lab Results - Last 24 hrs: Laboratory Results - last 24 hr 09/07/17 09/08/17 09/08/17 Range/Units 21:30 06:20 06:20 WBC 6.26 (4.0-11.0) K/uL RBC 4.29 L (4.30-5.90) M/uL Hgb 12.2 (12.0-16.0) g/dL Hct 38.1 (36.0-46.0) % MCV 88.8 (80.0-98.0) fL MCH 28.4 (27.0-32.0) pg MCHC 32.0 (31.0-37.0) g/dL RDW Std Deviation 45.8 (28.0-62.0) fl RDW Coeff of Mert 14 (11.0-15.0) % Plt Count 344 (150-400) K/uL MPV 8.90 (7.40-12.00) fL Neut % (Auto) 59.2 (48.0-80.0) % Lymph % (Auto) 26.5 (16.0-40.0) % [place] % (Auto) 9.9 (0.0-15.0) % Eos % (Auto) 3.8 (0.0-7.0) % Baso % (Auto) 0.6 (0.0-1.5) % Neut # (Auto) 3.7 (1.4-5.7) K/uL Lymph # (Auto) 1.7 (0.6-2.4) K/uL [place] # (Auto) 0.6 (0.0-0.8) K/uL Eos # (Auto) 0.2 (0.0-0.7) K/uL Baso # (Auto) 0.0 (0.0-0.1) K/uL Nucleated RBC % 0.0 /100WBC Nucleated RBCs # 0 K/uL Sodium 144 (136-146) mmol/L Potassium 4.0 (3.5-5.1) mmol/L Chloride 110 (98-110) mmol/L Carbon Dioxide 25 (21-31) mmol/L BUN 6 (6.0-23.0) mg/dL Creatinine 0.7 (0.6-1.5) mg/dL Est Cr Clr Drug Dosing 58.85 mL/min Estimated GFR (MDRD) > 60.0 ml/min Glucose 92 (60-110) mg/dL Calcium 8.8 (8.8-10.8) mg/dL Urine Color YELLOW Urine Appearance HAZY Urine pH 6.0 (5.0-8.0) Ur Specific [place] <= 1.005 (1.001-1.035) Urine Protein NEGATIVE (NEGATIVE) mg/dL Urine Glucose (UA) NEGATIVE (NEGATIVE) mg/dL Urine Ketones NEGATIVE (NEGATIVE) mg/dL Urine Occult Blood NEGATIVE (NEGATIVE) Urine Nitrite NEGATIVE (NEGATIVE) Urine Bilirubin NEGATIVE (NEGATIVE) Urine Urobilinogen 0.2 (<2.0) EU/dL Ur Leukocyte Esterase SMALL (NEGATIVE) Urine RBC 0-2 (0-2/HPF) Urine WBC 4-7 (0-5/HPF) Ur Epithelial Cells OCCASIONAL (NONE-FEW) Ur Renal Epithelial Cell RARE Urine Bacteria FEW (NEGATIVE) Med Orders - Current: Current Medications Discontinued Medications Azithromycin (Zithromax) 500 mg PO ONETIME ONE Stop: 09/07/17 19:24 Last Admin: 09/07/17 19:59 Dose: 500 mg Calcium Carbonate/Glycine (Tums) 0 mg PO TID PRN PRN Reason: Indigestion Last Admin: 09/08/17 07:12 Dose: 1,000 mg Enoxaparin Sodium (Lovenox) 40 mg SUBCUT DAILY [facility] Last Admin: 09/08/17 08:18 Dose: 40 mg Sodium Chloride (Normal Saline) 1,000 mls @ 999 mls/hr IV STAT ONE Stop: 09/07/17 18:56 Last Admin: 09/07/17 18:23 Dose: 999 mls/hr Sodium Chloride (Normal Saline) 1,000 mls @ 125 mls/hr IV ASDIRECTED [facility] Last Admin: 09/08/17 04:56 Dose: 125 mls/hr Ceftriaxone Sodium/Dextrose 1 (gm/ Premix) 50 mls @ 100 mls/hr IV ONETIME ONE Stop: 09/07/17 19:52 Last Admin: 09/07/17 20:00 Dose: 100 mls/hr Sodium Chloride (Saline Flush) 10 ml FLUSH ASDIRECTED PRN PRN Reason: Keep Vein Open Last Admin: 09/07/17 18:22 Dose: 10 ml Sodium Chloride (Saline Flush) 2.5 ml FLUSH ASDIRECTED PRN PRN Reason: Keep Vein Open Last Admin: 09/07/17 18:22 Dose: 2.5 ml *Q Meaningful Use (DIS) - VTE *Q VTE Criteria *Q: - Stroke *Q Stroke Criteria *Q: - AMI *Q AMI Criteria *Q: - Free Text/Narrative Note: I have examined the patient. I have discussed findings and treatment plan with resident. I agree with the assessment and plan outlined in the following resident's note.
--- NOTE | 2017-09-08 13:23 | CR ---
EXAM DATE: 09/07/17 PATIENT'S AGE: 66 Patient: EUGENE CLARKE Facility: [place], [place] Site . Site : 1950 Study: XRay Chest [id number]/5/2017 6:44:46 PM Ordering Physician: Dulce Lei Final Report: INDICATION: Pain, shortness of breath. TECHNIQUE: Chest radiograph 2 views COMPARISON: 08/25/2017. FINDINGS: New patchy opacification of the right lung base with small right pleural effusion, significant change from 08/25/2017. Left hemithorax remains clear. No left pleural effusion. A hiatal hernia again is again noted. No pneumothorax. IMPRESSION: 1. Interval development of right basilar infiltrate and small right pleural effusion. 2. Hiatal hernia. Dictated by Cullen Jhaveri MD @ 09/07/2017 7:17:40 PM Dictated by: Cullen Jhaveri MD @ 09/07/2017 19:17:47 (Electronic Signature) Report Signed by Proxy. [facility]ITAL[facility]
== END 2017-09-08 10:45 | disposition home or self-care (01) ==
LOC: MW.ED 17:08 → MW.MS 19:52
PROVIDERS: ADMIT Internal Medicine; ATTEND Internal Medicine
DX: E86.0 Dehydration (principal); J18.9 Pneumonia, unspecified organism; I95.1 Orthostatic hypotension; I10 Essential (primary) hypertension; M06.9 Rheumatoid arthritis, unspecified; K21.9 Gastro-esophageal reflux disease without esophagitis; F41.9 Anxiety disorder, unspecified; F32.9 Major depressive disorder, single episode, unspecified; Z91.048 Other nonmedicinal substance allergy status; Z79.82 Long term (current) use of aspirin; Z79.899 Other long term (current) drug therapy; Z90.710 Acquired absence of both cervix and uterus
CPT/HCPCS: 36415; 71020; 80048; 80053; 81001; 82150; 83690; 84443; 85025; 93005; 96361; 96365; 99285; A9270; J0696; J1650; J7040; 96372; 96374; 99284; G0378

== ENCOUNTER 2017-09-25 18:05 | Emergency (ER) | payer OTHER, MEDICARE ==
[2017-09-25] MEDS ORDERED: Sodium Chloride 0.9% 1,000 ML IV ONE (18:35)
--- NOTE | 2017-09-25 18:36 | EDM.PDOC ---
<Quique Preston - Last Filed: 09/25/17 20:12> ED HPI GENERAL MEDICAL PROBLEM - General Chief Complaint: 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 Problem Stated Complaint: PT CAN NOT URINATE Time Seen by Provider: 09/25/17 18:22 - Related Data Allergies Allergy/AdvReac Type Severity Reaction Status Date / Time iodine Allergy Hives Verified 09/07/17 17:42 Home Meds: Home Meds Folic Acid 1 mg PO DAILY 08/25/17 [History] Methotrexate 2.5 mg PO WEEKLY 08/25/17 [History] Metoprolol Succinate 25 mg PO DAILY 08/25/17 [History] Rosuvastatin Calcium 5 mg PO DAILY 08/25/17 [History] Aspirin 81 mg PO DAILY 09/02/17 [History] Ranitidine [Zantac] 150 mg PO BID 09/02/17 [History] ED ROS GENERAL - Review of Systems Review Of Systems: ROS reveals no pertinent complaints other than HPI. ED EXAM, GI/ABD - Physical Exam Exam: See Below (See dictation) Course - Vital Signs Text/Narrative:: I discussed lab results and urinalysis with patient patient will be prescribed Bactrim for 3 days pending urine culture I discussed with her there is no clear evidence of infection as an etiology for this and that there is no evidence of urinary retention at this time that her exam is otherwise unremarkable and there is many causes of her symptoms patient understands and agrees she'll be given urology for follow-up as well as with her private medical doctor she is to return as needed as discussed Last Recorded V/S: Last Vital Signs Temp 36.6 C 09/25/17 20:26 Pulse 64 09/25/17 20:26 Resp 20 09/25/17 20:26 BP 122/71 09/25/17 20:26 Pulse Ox 97 09/25/17 20:26 - Orders/Labs/Meds Labs: Laboratory Tests 09/25/17 09/25/17 09/25/17 Range/Units 18:42 18:42 19:40 WBC 5.91 (4.0-11.0) K/uL RBC 4.27 L (4.30-5.90) M/uL Hgb 12.3 (12.0-16.0) g/dL Hct 37.6 (36.0-46.0) % MCV 88.1 (80.0-98.0) fL MCH 28.8 (27.0-32.0) pg MCHC 32.7 (31.0-37.0) g/dL RDW Std Deviation 47.0 (28.0-62.0) fl RDW Coeff of Mert 15 (11.0-15.0) % Plt Count 337 (150-400) K/uL MPV 9.10 (7.40-12.00) fL Neut % (Auto) 50.7 (48.0-80.0) % Lymph % (Auto) 38.1 (16.0-40.0) % [place] % (Auto) 9.5 (0.0-15.0) % Eos % (Auto) 1.2 (0.0-7.0) % Baso % (Auto) 0.5 (0.0-1.5) % Neut # (Auto) 3.0 (1.4-5.7) K/uL Lymph # (Auto) 2.3 (0.6-2.4) K/uL [place] # (Auto) 0.6 (0.0-0.8) K/uL Eos # (Auto) 0.1 (0.0-0.7) K/uL Baso # (Auto) 0.0 (0.0-0.1) K/uL Nucleated RBC % 0.0 /100WBC Nucleated RBCs # 0 K/uL Sodium 141 (136-146) mmol/L Potassium 3.6 (3.5-5.1) mmol/L Chloride 108 (98-110) mmol/L Carbon Dioxide 23 (21-31) mmol/L BUN 12 (6.0-23.0) mg/dL Creatinine 0.8 (0.6-1.5) mg/dL Est Cr Clr Drug Dosing TNP Estimated GFR (MDRD) > 60.0 ml/min Glucose 99 (60-110) mg/dL Calcium 9.4 (8.8-10.8) mg/dL Total Bilirubin 0.3 (0.1-1.5) mg/dL AST 19 (5-40) IU/L ALT 15 (8-54) IU/L Alkaline Phosphatase 74 (40-150) Total Protein 6.9 (6.0-8.0) g/dL Albumin 3.7 (3.4-4.8) g/dL Globulin 3.2 (2.0-3.5) g/dL Albumin/Globulin Ratio 1.2 L (1.3-2.8) Urine Color YELLOW Urine Appearance CLEAR Urine pH 6.0 (5.0-8.0) Ur Specific [place] 1.010 (1.001-1.035) Urine Protein NEGATIVE (NEGATIVE) mg/dL Urine Glucose (UA) NEGATIVE (NEGATIVE) mg/dL Urine Ketones NEGATIVE (NEGATIVE) mg/dL Urine Occult Blood NEGATIVE (NEGATIVE) Urine Nitrite NEGATIVE (NEGATIVE) Urine Bilirubin NEGATIVE (NEGATIVE) Urine Urobilinogen 0.2 (<2.0) EU/dL Ur Leukocyte Esterase NEGATIVE (NEGATIVE) Urine RBC 0-1 (0-2/HPF) Urine WBC 0-1 (0-5/HPF) Ur Epithelial Cells FEW (NONE-FEW) Urine Bacteria FEW (NEGATIVE) Meds: Medications Discontinued Medications Generic Name Dose Route Start Last Admin Trade Name Freq PRN Reason Stop Dose Admin Sodium Chloride 1,000 mls @ 999 mls/hr 09/25/17 18:35 09/25/17 18:43 Normal Saline IV 09/25/17 19:35 999 mls/hr STAT ONE Administration Departure - Departure Time of Disposition: 20:13 Disposition: Home, Self-Care 01 Condition: Good Clinical Impression: Urinary incontinence - Discharge Information Instructions: Urinary Incontinence Referrals: PCP,None [Primary Care Provider] - Forms: ED Department Discharge Additional Instructions: The following information is given to patients seen in the emergency department who are being discharged to home. This information is to outline your options for follow-up care. We provide all patients seen in our emergency department with a follow-up referral. The need for follow-up, as well as the timing and circumstances, are variable depending upon the specifics of your emergency department visit. If you don't have a primary care physician on staff, we will provide you with a referral. We always advise you to contact your personal physician following an emergency department visit to inform them of the circumstance of the visit and for follow-up with them and/or the need for any referrals to a consulting specialist. The emergency department will also refer you to a specialist when appropriate. This referral assures that you have the opportunity for followup care with a specialist. All of these measure are taken in an effort to provide you with optimal care, which includes your followup. Under all circumstances we always encourage you to contact your private physician who remains a resource for coordinating your care. When calling for followup care, please make the office aware that this follow-up is from your recent emergency room visit. If for any reason you are refused follow-up, please contact the [facility] emergency department at and asked to speak to the emergency department charge nurse. [facility] - Urology [address] [place] [id number] Bactrim as prescribed follow-up urology as discussed follow-up private medical doctor as discussed and return as needed as discussed <Yola Vázquez E - Last Filed: 09/30/17 13:33> ED HPI GENERAL MEDICAL PROBLEM - General Source of Information: Reports: Patient History Limitations: Reports: No Limitations - History of Present Illness INITIAL COMMENTS - FREE TEXT/NARRATIVE: HISTORY AND PHYSICAL: History of present illness: Patient is a 66-year-old female who presents to the emergency room with complaints of decreased urinary output 3 days. Patient states she was admitted to the hospital on 09/07 2017 for pneumonia and was placed on Levaquin orally 10 days upon her discharge. She states she read the possible side effects on the Levaquin and noted that decreased urinary output was one of them. Over the past 3 days she reports that she has only voided 3 times per day, each time being "trickling". She is concerned that this is a side effect of her antibiotic usage. Denies any abdominal pain, nausea, vomiting or diarrhea. Denies any fever, chills, chest pain or shortness of breath. Denies any dysuria. Patient denies any lower extremity weakness, recent trauma, or any history of cancers. Review of systems: As per history of present illness and below otherwise all systems reviewed and negative. Past medical history: As per history of present illness and as reviewed below otherwise noncontributory. Surgical history: As per history of present illness and as reviewed below otherwise noncontributory. Social history: No reported history of drug or alcohol abuse. Family history: As per history of present illness and as reviewed below otherwise noncontributory. Physical exam: Gen.: Well-developed and well-nourished 66-year-old female. Appears nontoxic and in no acute distress. Alert and oriented. HEENT: Atraumatic, normocephalic, pupils reactive, negative for conjunctival pallor or scleral icterus, mucous membranes moist, throat clear, neck supple, nontender, trachea midline. Lungs: Clear to auscultation, breath sounds equal bilaterally, chest nontender. Heart: S1S2, regular, negative for clicks, rubs, or JVD. Abdomen: Soft, nondistended, nontender. Negative for masses or hepatosplenomegaly. Mild left costovertebral tenderness, no flank tenderness on the right. Pelvis: Stable nontender. 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: Deferred. Rectal: This was done with a animal caretaker at the bedside. No external hemorrhoids noted. Good rectal tone. Extremities: Atraumatic, negative for cords or calf pain. Neurovascular unremarkable. Neuro: Awake, alert, oriented. Cranial nerves II through XII unremarkable. Cerebellum unremarkable. Motor and sensory unremarkable throughout. Exam nonfocal. Bladder scanner revealed 184cc. Patient is nontender to palpation of the suprapubic area. Diagnostics: CBC, CMP, UA Therapeutics: Bladder scanner, normal saline Impression: Urinary incontinence Plan: 1.Bactrim as prescribed follow-up urology as discussed follow-up private medical doctor as discussed and return as needed as discussed Definitive disposition and diagnosis as appropriate pending reevaluation and review of above. 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: Musculoskeletal History: Reports: RA Neurological History: Reports: None Psychiatric History: Reports: Anxiety, Depression Endocrine/Metabolic History: Reports: None Hematologic History: Reports: None Immunologic History: Reports: None Oncologic (Cancer) History: Reports: None Dermatologic History: Reports: None - Infectious Disease History Infectious Disease History: Reports: Chicken Pox, Measles, Mumps - Past Surgical History Head Surgeries/Procedures: Reports: None HEENT Surgical History: Reports: None Female Surgical History: Reports: Hysterectomy Musculoskeletal Surgical History: Reports: None Social & Family History - Family History Family Medical History: Noncontributory - Tobacco Use Smoking Status *Q: Never Smoker Second Hand Smoke Exposure: No - Caffeine Use Caffeine Use: Reports: Coffee, Soda - Alcohol Use Days Per Week of Alcohol Use: 0 - Recreational Drug Use Recreational Drug Use: No Course - Orders/Labs/Meds Labs: Laboratory Tests 09/25/17 09/25/17 09/25/17 Range/Units 18:42 18:42 19:40 WBC 5.91 (4.0-11.0) K/uL RBC 4.27 L (4.30-5.90) M/uL Hgb 12.3 (12.0-16.0) g/dL Hct 37.6 (36.0-46.0) % MCV 88.1 (80.0-98.0) fL MCH 28.8 (27.0-32.0) pg MCHC 32.7 (31.0-37.0) g/dL RDW Std Deviation 47.0 (28.0-62.0) fl RDW Coeff of Mert 15 (11.0-15.0) % Plt Count 337 (150-400) K/uL MPV 9.10 (7.40-12.00) fL Neut % (Auto) 50.7 (48.0-80.0) % Lymph % (Auto) 38.1 (16.0-40.0) % [place] % (Auto) 9.5 (0.0-15.0) % Eos % (Auto) 1.2 (0.0-7.0) % Baso % (Auto) 0.5 (0.0-1.5) % Neut # (Auto) 3.0 (1.4-5.7) K/uL Lymph # (Auto) 2.3 (0.6-2.4) K/uL [place] # (Auto) 0.6 (0.0-0.8) K/uL Eos # (Auto) 0.1 (0.0-0.7) K/uL Baso # (Auto) 0.0 (0.0-0.1) K/uL Nucleated RBC % 0.0 /100WBC Nucleated RBCs # 0 K/uL Sodium 141 (136-146) mmol/L Potassium 3.6 (3.5-5.1) mmol/L Chloride 108 (98-110) mmol/L Carbon Dioxide 23 (21-31) mmol/L BUN 12 (6.0-23.0) mg/dL Creatinine 0.8 (0.6-1.5) mg/dL Est Cr Clr Drug Dosing TNP Estimated GFR (MDRD) > 60.0 ml/min Glucose 99 (60-110) mg/dL Calcium 9.4 (8.8-10.8) mg/dL Total Bilirubin 0.3 (0.1-1.5) mg/dL AST 19 (5-40) IU/L ALT 15 (8-54) IU/L Alkaline Phosphatase 74 (40-150) Total Protein 6.9 (6.0-8.0) g/dL Albumin 3.7 (3.4-4.8) g/dL Globulin 3.2 (2.0-3.5) g/dL Albumin/Globulin Ratio 1.2 L (1.3-2.8) Urine Color YELLOW Urine Appearance CLEAR Urine pH 6.0 (5.0-8.0) Ur Specific [place] 1.010 (1.001-1.035) Urine Protein NEGATIVE (NEGATIVE) mg/dL Urine Glucose (UA) NEGATIVE (NEGATIVE) mg/dL Urine Ketones NEGATIVE (NEGATIVE) mg/dL Urine Occult Blood NEGATIVE (NEGATIVE) Urine Nitrite NEGATIVE (NEGATIVE) Urine Bilirubin NEGATIVE (NEGATIVE) Urine Urobilinogen 0.2 (<2.0) EU/dL Ur Leukocyte Esterase NEGATIVE (NEGATIVE) Urine RBC 0-1 (0-2/HPF) Urine WBC 0-1 (0-5/HPF) Ur Epithelial Cells FEW (NONE-FEW) Urine Bacteria FEW (NEGATIVE) Meds: Medications Discontinued Medications Generic Name Dose Route Start Last Admin Trade Name Freq PRN Reason Stop Dose Admin Sodium Chloride 1,000 mls @ 999 mls/hr 09/25/17 18:35 09/25/17 18:43 Normal Saline IV 09/25/17 19:35 999 mls/hr STAT ONE Administration
[2017-09-25 19:15] LABS: CHLORIDE,CL 108 mmol/L (98-110); SODIUM,NA 141 mmol/L (136-146)
== END 2017-09-25 20:33 | disposition home or self-care (01) ==
LOC: MW.ED 18:05
DX: R32 Unspecified urinary incontinence (principal); I10 Essential (primary) hypertension; E78.00 Pure hypercholesterolemia, unspecified; Z79.82 Long term (current) use of aspirin; Z79.899 Other long term (current) drug therapy; Z91.048 Other nonmedicinal substance allergy status
CPT/HCPCS: 51798; 80053; 81001; 85025; 87086; 96360; 99283; J7040; 99282

== ENCOUNTER 2017-10-02 12:36 | Emergency (ER) | payer OTHER, MEDICARE ==
[2017-10-02] MEDS ORDERED: Sodium Chloride 0.9% 1,000 ML IV ONE (13:09)
[2017-10-02] MEDS ORDERED: Sodium Chloride 0.9% 2.5 ML Syringe FLUSH PRN (13:09)
[2017-10-02] MEDS ORDERED: Sodium Chloride 0.9% 10 ML Syringe FLUSH PRN (13:09)
[2017-10-02] MEDS ORDERED: Albuterol/Ipratropium 3.0-0.5 MG/3 ML Neb Soln NEB ONE (13:14)
--- NOTE | 2017-10-02 13:15 | EDM.PDOC ---
ED HPI GENERAL MEDICAL PROBLEM - General Chief Complaint: Respiratory Problem Stated Complaint: SOB Time Seen by Provider: 10/02/17 13:13 Source of Information: Reports: Patient History Limitations: Reports: No Limitations - History of Present Illness INITIAL COMMENTS - FREE TEXT/NARRATIVE: HISTORY AND PHYSICAL: []66-year-old female presenting with shortness of breath History of Present Illness: [][facility] and got short of breath and came to the emergency department Review of Systems: As per history of present illness and below otherwise all systems reviewed and negative. Past medical history: As per history of present illness and as reviewed below otherwise noncontributory. Surgical history: As per history of present illness and as reviewed below otherwise noncontributory. Social history: No reported history of drug or alcohol abuse. Family history: As per history of present illness and as reviewed below otherwise noncontributory. Physical exam: Alert and oriented female speaking well in full sentences without any shortness of breath is cooperative with examination HEENT: Atraumatic, normocehpalic, pupils reactive, negative for conjunctival pallor or scleral icterus, mucous membranes moist, throat clear, neck supple, nontender, trachea midline. Lungs: Clear to auscultation, breath sounds equal bilaterally, chest non tender. Heart: S1S2, regular, negative for clicks, rubs, or JVD. Abdomen: Soft, nondistended, nontender. Negative for masses or hepatossplenmegaly. Negative for costovertebral tenderness. Pelvis: Stable nontender. 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: Deferred. Rectal: Deferred Extremities: Atraumatic, negative for cords or calf pain. Neurovascular unremarkable. Neuro: Awake, alert, oriented. Cranial nerves II through XII unremarkable. Cerebellum unremarkable. Motor and sensory unremarkable throughout. Exam nonfocal. Diagnostics: [CBC CMP chest x-ray] Therapeutics: [DuoNeb] Impression: [Mild dehydration] Plan: []Discharged to home Encourage extra fluids Ensurer may be of help Follow-up with your primary care provider next week as scheduled Definitive disposition and diagnosis as appropriate pending reevaluation and review of above. Onset: Sudden Duration: Minutes: Location: Reports: Head, Generalized Severity: Moderate - Related Data Allergies Allergy/AdvReac Type Severity Reaction Status Date / Time iodine Allergy Hives Verified 10/02/17 13:03 Home Meds: Home Meds Folic Acid 1 mg PO DAILY 08/25/17 [History] Methotrexate 2.5 mg PO WEEKLY 08/25/17 [History] Metoprolol Succinate 25 mg PO DAILY 08/25/17 [History] Rosuvastatin Calcium 5 mg PO DAILY 08/25/17 [History] Aspirin 81 mg PO DAILY 09/02/17 [History] Ranitidine [Zantac] 150 mg PO BID 09/02/17 [History] Past Medical History - Past Health History Medical/Surgical History: Denies Medical/Surgical History HEENT History: Reports: None Cardiovascular History: Reports: High Cholesterol, Hypertension Respiratory History: Reports: Pneumonia, Recurrent Gastrointestinal History: Reports: GERD 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 History: Reports: None 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: Musculoskeletal History: Reports: RA Neurological History: Reports: None Psychiatric History: Reports: Anxiety, Depression Endocrine/Metabolic History: Reports: None Hematologic History: Reports: None Immunologic History: Reports: None Oncologic (Cancer) History: Reports: None Dermatologic History: Reports: None - Infectious Disease History Infectious Disease History: Reports: Chicken Pox, Measles, Mumps - Past Surgical History Head Surgeries/Procedures: Reports: None HEENT Surgical History: Reports: None Female Surgical History: Reports: Hysterectomy Musculoskeletal Surgical History: Reports: None Social & Family History - Family History Family Medical History: Noncontributory - Tobacco Use Smoking Status *Q: Never Smoker Second Hand Smoke Exposure: No - Caffeine Use Caffeine Use: Reports: Coffee - Alcohol Use Days Per Week of Alcohol Use: 0 - Recreational Drug Use Recreational Drug Use: No ED ROS GENERAL - Review of Systems Review Of Systems: ROS reveals no pertinent complaints other than HPI. ED EXAM, GENERAL - Physical Exam Exam: See Below (See dictation) Course - Vital Signs Last Recorded V/S: Last Vital Signs Temp 37.0 C 10/02/17 13:03 Pulse 81 10/02/17 13:03 Resp 18 10/02/17 13:03 BP 113/79 10/02/17 14:41 Pulse Ox 96 10/02/17 13:03 - Orders/Labs/Meds Orders: Active Orders 24 hr Category Date Time Status EKG Documentation Completion [RC] STAT Care 10/02/17 13:09 Active RT Aerosol Therapy [RC] ASDIRECTED Care 10/02/17 13:14 Active UA W/MICROSCOPIC [URIN] Stat Lab 10/02/17 13:09 Uncollected Sodium Chloride 0.9% [Saline Flush] Med 10/02/17 13:09 Active 10 ml FLUSH ASDIRECTED PRN Sodium Chloride 0.9% [Saline Flush] Med 10/02/17 13:09 Active 2.5 ml FLUSH ASDIRECTED PRN Saline Lock Insert [OM.PC] Stat Oth 10/02/17 13:08 Ordered Medication Orders Sodium Chloride (Saline Flush) 10 ml FLUSH ASDIRECTED PRN PRN Reason: Keep Vein Open Last Admin: 10/02/17 13:44 Dose: 10 ml Sodium Chloride (Saline Flush) 2.5 ml FLUSH ASDIRECTED PRN PRN Reason: Keep Vein Open Last Admin: 10/02/17 13:44 Dose: 2.5 ml Labs: Laboratory Tests 10/02/17 10/02/17 Range/Units 13:23 13:23 WBC 5.26 (4.0-11.0) K/uL RBC 4.69 (4.30-5.90) M/uL Hgb 13.3 (12.0-16.0) g/dL Hct 41.2 (36.0-46.0) % MCV 87.8 (80.0-98.0) fL MCH 28.4 (27.0-32.0) pg MCHC 32.3 (31.0-37.0) g/dL RDW Std Deviation 48.0 (28.0-62.0) fl RDW Coeff of Mert 15 (11.0-15.0) % Plt Count 282 (150-400) K/uL MPV 9.10 (7.40-12.00) fL Neut % (Auto) 57.1 (48.0-80.0) % Lymph % (Auto) 35.4 (16.0-40.0) % [place] % (Auto) 6.1 (0.0-15.0) % Eos % (Auto) 1.0 (0.0-7.0) % Baso % (Auto) 0.4 (0.0-1.5) % Neut # (Auto) 3.0 (1.4-5.7) K/uL Lymph # (Auto) 1.9 (0.6-2.4) K/uL [place] # (Auto) 0.3 (0.0-0.8) K/uL Eos # (Auto) 0.1 (0.0-0.7) K/uL Baso # (Auto) 0.0 (0.0-0.1) K/uL Nucleated RBC % 0.0 /100WBC Nucleated RBCs # 0 K/uL Sodium 141 (136-146) mmol/L Potassium 3.9 (3.5-5.1) mmol/L Chloride 109 (98-110) mmol/L Carbon Dioxide 23 (21-31) mmol/L BUN 12 (6.0-23.0) mg/dL Creatinine 0.7 (0.6-1.5) mg/dL Est Cr Clr Drug Dosing TNP Estimated GFR (MDRD) > 60.0 ml/min Glucose 122 H (60-110) mg/dL Calcium 9.7 (8.8-10.8) mg/dL Total Bilirubin 0.6 (0.1-1.5) mg/dL AST 21 (5-40) IU/L ALT 19 (8-54) IU/L Alkaline Phosphatase 73 (40-150) Total Protein 7.4 (6.0-8.0) g/dL Albumin 4.0 (3.4-4.8) g/dL Globulin 3.4 (2.0-3.5) g/dL Albumin/Globulin Ratio 1.2 L (1.3-2.8) Meds: Medications Generic Name Dose Route Start Last Admin Trade Name Freq PRN Reason Stop Dose Admin Sodium Chloride 10 ml 10/02/17 13:09 10/02/17 13:44 Saline Flush FLUSH 10 ml ASDIRECTED PRN Administration Keep Vein Open Sodium Chloride 2.5 ml 10/02/17 13:09 10/02/17 13:44 Saline Flush FLUSH 2.5 ml ASDIRECTED PRN Administration Keep Vein Open Discontinued Medications Generic Name Dose Route Start Last Admin Trade Name Freq PRN Reason Stop Dose Admin Albuterol/Ipratropium 3 ml 10/02/17 13:14 10/02/17 13:28 Duoneb 3.0-0.5 Mg/3 Ml NEB 10/02/17 13:15 3 ml ONETIME ONE Administration Sodium Chloride 1,000 mls @ 999 mls/hr 10/02/17 13:09 10/02/17 13:41 Normal Saline IV 10/02/17 14:09 999 mls/hr STAT ONE Administration Departure - Departure Time of Disposition: 14:59 Disposition: Home, Self-Care 01 Condition: Good Clinical Impression: Mild dehydration - Discharge Information Referrals: PCP,None [Primary Care Provider] - Forms: ED Department Discharge Additional Instructions: The following information is given to patients seen in the emergency department who are being discharged to home. This information is to outline your options for follow-up care. We provide all patients seen in our emergency department with a follow-up referral. The need for follow-up, as well as the timing and circumstances, are variable depending upon the specifics of your emergency department visit. If you don't have a primary care physician on staff, we will provide you with a referral. We always advise you to contact your personal physician following an emergency department visit to inform them of the circumstance of the visit and for follow-up with them and/or the need for any referrals to a consulting specialist. The emergency department will also refer you to a specialist when appropriate. This referral assures that you have the opportunity for followup care with a specialist. All of these measure are taken in an effort to provide you with optimal care, which includes your followup. Under all circumstances we always encourage you to contact your private physician who remains a resource for coordinating your care. When calling for followup care, please make the office aware that this follow-up is from your recent emergency room visit. If for any reason you are refused follow-up, please contact the [facility] emergency department at and asked to speak to the emergency department charge nurse. You were found to be mildly dehydrated on entrance to the emergency room You received 1 L of fluids and improved Please follow-up with your primary care as scheduled next week - My Orders Last 24 Hours: My Active Orders 10/02/17 13:08 Saline Lock Insert [OM.PC] Stat 10/02/17 13:09 EKG Documentation Completion [RC] STAT UA W/MICROSCOPIC [URIN] Stat Sodium Chloride 0.9% [Saline Flush] 10 ml FLUSH ASDIRECTED PRN Sodium Chloride 0.9% [Saline Flush] 2.5 ml FLUSH ASDIRECTED PRN 10/02/17 13:14 RT Aerosol Therapy [RC] ASDIRECTED - Assessment/Plan Last 24 Hours: My Active Orders 10/02/17 13:08 Saline Lock Insert [OM.PC] Stat 10/02/17 13:09 EKG Documentation Completion [RC] STAT UA W/MICROSCOPIC [URIN] Stat Sodium Chloride 0.9% [Saline Flush] 10 ml FLUSH ASDIRECTED PRN Sodium Chloride 0.9% [Saline Flush] 2.5 ml FLUSH ASDIRECTED PRN 10/02/17 13:14 RT Aerosol Therapy [RC] ASDIRECTED
[2017-10-02 13:58] LABS: CHLORIDE,CL 109 mmol/L (98-110); SODIUM,NA 141 mmol/L (136-146)
--- NOTE | 2017-10-02 14:41 | CR ---
EXAMINATION: Two-view chest (PA and Lateral views). HISTORY: Shortness of breath. FINDINGS: The trachea is midline. The cardiomediastinal silhouette is within normal limits. There is a small ri ght pleural effusion with adjacent atelectasis. This is similar to the previous examination and a deg ree of scarring is not excluded. Mild chronic interstitial prominence. Small to moderate hiatal herni a. The aorta is tortuous. Osseous structures appear unremarkable. IMPRESSION: Stable small right pleural effusion with adjacent atelectasis.
== END 2017-10-02 16:10 | disposition home or self-care (01) ==
LOC: MW.ED 12:36
DX: E86.0 Dehydration (principal); I10 Essential (primary) hypertension; K21.9 Gastro-esophageal reflux disease without esophagitis; Z79.82 Long term (current) use of aspirin; Z79.899 Other long term (current) drug therapy; Z88.8 Allergy status to other drugs, medicaments and biological substances
CPT/HCPCS: 36415; 71020; 80053; 85025; 93005; 94640; 96360; 99285; J7040; 99284

== ENCOUNTER 2018-02-20 02:37 | Emergency (ER) | payer MEDICARE, OTHER ==
[2018-02-20] MEDS ORDERED: Sodium Chloride 0.9% 1,000 ML IV ONE (02:59)
[2018-02-20] MEDS ORDERED: Ketorolac 30 MG/ML SDV IVPUSH ONE (03:01)
[2018-02-20 03:54] LABS: CHLORIDE,CL 107 mmol/L (98-107); SODIUM,NA 142 mmol/L (136-145)
--- NOTE | 2018-02-20 04:40 | EDM.PDOC ---
ED HPI GENERAL MEDICAL PROBLEM - General Chief Complaint: Upper Extremity Injury/Pain Stated Complaint: LEFT SHOULDER PAIN Time Seen by Provider: 02/20/18 04:35 - History of Present Illness INITIAL COMMENTS - FREE TEXT/NARRATIVE: HISTORY AND PHYSICAL: History of present illness: Patient is a 67-year-old white female history rheumatoid arthritis presents with concern of left shoulder pain has been a chronic intermittent problem for quite some time she denies chest pain palpitations shortness breath nausea vomiting or other complaints. Review of systems: As per history of present illness and below otherwise all systems reviewed and negative. Past medical history: As per history of present illness and as reviewed below otherwise noncontributory. Surgical history: As per history of present illness and as reviewed below otherwise noncontributory. Social history: No reported history of drug or alcohol abuse. Family history: As per history of present illness and as reviewed below otherwise noncontributory. Physical exam: HEENT: Atraumatic, normocephalic, pupils reactive, negative for conjunctival pallor or scleral icterus, mucous membranes moist, throat clear, neck supple, nontender, trachea midline. Lungs: Clear to auscultation, breath sounds equal bilaterally, chest nontender. Heart: S1S2, regular, negative for clicks, rubs, or JVD. Abdomen: Soft, nondistended, nontender. Negative for masses or hepatosplenomegaly. Negative for costovertebral tenderness. Pelvis: Stable nontender. 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: Deferred. Rectal: Deferred. Extremities: Left shoulder has slightly limited range of motion secondary pain is no erythema no crepitation with tenderness noted CMS and neurovascular is unremarkable Neuro: Awake, alert, oriented. Cranial nerves II through XII unremarkable. Cerebellum unremarkable. Motor and sensory unremarkable throughout. Exam nonfocal. Diagnostics: Chest x-ray x-ray left shoulder CBC CMP troponin Therapeutics: Toradol 30 mg IV Impression: #1 left shoulder pain #2 history rheumatoid arthritis Definitive disposition and diagnosis as appropriate pending reevaluation and review of above. left shoulder Pain Score (Numeric/FACES): 9 - Related Data Allergies Allergy/AdvReac Type Severity Reaction Status Date / Time iodine Allergy Hives Verified 02/20/18 02:51 Home Meds: Home Meds Folic Acid 1 mg PO DAILY 08/25/17 [History] Methotrexate 2.5 mg PO WEEKLY 08/25/17 [History] Metoprolol Succinate 25 mg PO DAILY 08/25/17 [History] Rosuvastatin Calcium 5 mg PO DAILY 08/25/17 [History] Aspirin 81 mg PO DAILY 09/02/17 [History] Ranitidine [Zantac] 150 mg PO BID 09/02/17 [History] Past Medical History - Past Health History Medical/Surgical History: Denies Medical/Surgical History HEENT History: Reports: None Cardiovascular History: Reports: High Cholesterol, Hypertension Respiratory History: Reports: Pneumonia, Recurrent Gastrointestinal History: Reports: GERD 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 History: Reports: 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: Musculoskeletal History: Reports: RA Neurological History: Reports: None Psychiatric History: Reports: Anxiety, Depression Endocrine/Metabolic History: Reports: None Hematologic History: Reports: None Immunologic History: Reports: None Oncologic (Cancer) History: Reports: None Dermatologic History: Reports: None - Infectious Disease History Infectious Disease History: Reports: None - Past Surgical History Head Surgeries/Procedures: Reports: None HEENT Surgical History: Reports: None Female Surgical History: Reports: Hysterectomy Musculoskeletal Surgical History: Reports: None Social & Family History - Family History Family Medical History: Noncontributory - Tobacco Use Smoking Status *Q: Never Smoker Second Hand Smoke Exposure: No - Caffeine Use Caffeine Use: Reports: Coffee - Alcohol Use Days Per Week of Alcohol Use: 0 - Recreational Drug Use Recreational Drug Use: No Review of Systems - Review of Systems Review Of Systems: ROS reveals no pertinent complaints other than HPI. ED EXAM, GENERAL - Physical Exam Exam: See Below (See dictation) Course - Vital Signs Last Recorded V/S: Last Vital Signs Temp 36.4 C 02/20/18 02:51 Pulse 89 02/20/18 02:51 Resp 18 02/20/18 02:51 BP 101/71 02/20/18 02:51 Pulse Ox 98 02/20/18 02:51 - Orders/Labs/Meds Orders: Active Orders 24 hr Category Date Time Status EKG Documentation Completion [RC] STAT Care 02/20/18 02:59 Active Chest 1V Frontal [CR] Stat Exams 02/20/18 02:59 Taken Shoulder Comp Lt [CR] Stat Exams 02/20/18 02:59 Taken Sodium Chloride 0.9% [Normal Saline] 1,000 ml Med 02/20/18 02:59 Active IV .Bolus Medication Orders Sodium Chloride (Normal Saline) 1,000 mls @ 250 mls/hr IV .Bolus ONE Stop: 02/20/18 06:58 Last Admin: 02/20/18 03:14 Dose: 250 mls/hr Labs: Laboratory Tests 02/20/18 02/20/18 Range/Units 03:12 03:12 WBC 8.96 (4.0-11.0) K/uL RBC 4.60 (4.30-5.90) M/uL Hgb 13.4 (12.0-16.0) g/dL Hct 41.3 (36.0-46.0) % MCV 89.8 (80.0-98.0) fL MCH 29.1 (27.0-32.0) pg MCHC 32.4 (31.0-37.0) g/dL RDW Std Deviation 45.4 (28.0-62.0) fl RDW Coeff of Mert 15 (11.0-15.0) % Plt Count 301 (150-400) K/uL MPV 9.30 (7.40-12.00) fL Neut % (Auto) 61.1 (48.0-80.0) % Lymph % (Auto) 28.3 (16.0-40.0) % [place] % (Auto) 9.3 (0.0-15.0) % Eos % (Auto) 1.1 (0.0-7.0) % Baso % (Auto) 0.2 (0.0-1.5) % Neut # (Auto) 5.5 (1.4-5.7) K/uL Lymph # (Auto) 2.5 H (0.6-2.4) K/uL [place] # (Auto) 0.8 (0.0-0.8) K/uL Eos # (Auto) 0.1 (0.0-0.7) K/uL Baso # (Auto) 0.0 (0.0-0.1) K/uL Sodium 142 (136-145) mmol/L Potassium 3.2 L (3.5-5.1) mmol/L Chloride 107 (98-107) mmol/L Carbon Dioxide 25.8 (21.0-32.0) mmol/L BUN 14 (7.0-18.0) mg/dL Creatinine 0.8 (0.6-1.0) mg/dL Est Cr Clr Drug Dosing 53.23 mL/min Estimated GFR (MDRD) > 60.0 ml/min Glucose 109 H (74-106) mg/dL Uric Acid 3.7 (2.6-7.2) mg/dL Calcium 9.9 (8.5-10.1) mg/dL Total Bilirubin 0.8 (0.2-1.0) mg/dL AST 20 (15-37) IU/L ALT 20 (14-63) IU/L Alkaline Phosphatase 68 (46-116) U/L CK-MB (CK-2) 1.9 (0-3.6) ng/mL Troponin I < 0.050 (0.000-0.056) ng/mL Total Protein 7.3 (6.4-8.2) g/dL Albumin 3.9 (3.4-5.0) g/dL Globulin 3.4 (2.0-3.5) g/dL Albumin/Globulin Ratio 1.1 L (1.3-2.8) Meds: Medications Generic Name Dose Route Start Last Admin Trade Name Freq PRN Reason Stop Dose Admin Sodium Chloride 1,000 mls @ 250 mls/hr 02/20/18 02:59 02/20/18 03:14 Normal Saline IV 02/20/18 06:58 250 mls/hr .Bolus ONE Administration Discontinued Medications Generic Name Dose Route Start Last Admin Trade Name Freq PRN Reason Stop Dose Admin Ketorolac Tromethamine 30 mg 02/20/18 03:01 02/20/18 03:20 Toradol IVPUSH 02/20/18 03:02 30 mg ONETIME ONE Administration Departure - Departure Time of Disposition: 04:39 Disposition: Home, Self-Care 01 Condition: Good Clinical Impression: Shoulder pain - Discharge Information Referrals: Adrian Pierre MD [Primary Care Provider] - Additional Instructions: The following information is given to patients seen in the emergency department who are being discharged to home. This information is to outline your options for follow-up care. We provide all patients seen in our emergency department with a follow-up referral. The need for follow-up, as well as the timing and circumstances, are variable depending upon the specifics of your emergency department visit. If you don't have a primary care physician on staff, we will provide you with a referral. We always advise you to contact your personal physician following an emergency department visit to inform them of the circumstance of the visit and for follow-up with them and/or the need for any referrals to a consulting specialist. The emergency department will also refer you to a specialist when appropriate. This referral assures that you have the opportunity for followup care with a specialist. All of these measure are taken in an effort to provide you with optimal care, which includes your followup. Under all circumstances we always encourage you to contact your private physician who remains a resource for coordinating your care. When calling for followup care, please make the office aware that this follow-up is from your recent emergency room visit. If for any reason you are refused follow-up, please contact the [facility] emergency department at and asked to speak to the emergency department charge nurse. [facility] [address], [address] [place] [address] Follow-up primary medical doctor call to schedule routine appointment with orthopedic clinic above return as needed as discussed - My Orders Last 24 Hours: My Active Orders 02/20/18 02:59 EKG Documentation Completion [RC] STAT Chest 1V Frontal [CR] Stat Shoulder Comp Lt [CR] Stat Sodium Chloride 0.9% [Normal Saline] 1,000 ml IV .Bolus - Assessment/Plan Last 24 Hours: My Active Orders 02/20/18 02:59 EKG Documentation Completion [RC] STAT Chest 1V Frontal [CR] Stat Shoulder Comp Lt [CR] Stat Sodium Chloride 0.9% [Normal Saline] 1,000 ml IV .Bolus
--- NOTE | 2018-02-20 16:40 | CR ---
EXAM DATE: 02/20/18 PATIENT'S AGE: 67 Patient: EUGENE CLARKE Facility: [place], [place] Site . Site : 1950 Study: XRay Chest Left [id number]/[id number]/2018 3:56:41 AM Ordering Physician: Doctor Arthur Final Report: INDICATION: Left shoulder pain TECHNIQUE: Chest 1 view. COMPARISON: 10/02/2017 FINDINGS: Cardiovascular and mediastinum: Heart size and vasculature are normal in caliber and appearance. Mediastinum is within normal limits. Hiatal hernia. Lungs and pleural space: Stable atelectasis versus scarring right lower lobe. No sign of infiltrate or mass. No sign of pleural effusion. No pneumothorax. Bones and soft tissues: No significant findings. IMPRESSION: Hiatal hernia otherwise unremarkable chest. Dictated by Rigo Craig MD @ 02/20/2018 4:01:41 AM Dictated by: Rigo Craig MD @ 02/20/2018 04:02:13 (Electronic Signature) Report Signed by Proxy. ROSA M
--- NOTE | 2018-02-20 16:41 | CR ---
EXAM DATE: 02/20/18 PATIENT'S AGE: 67 Patient: EUGENE CLARKE Facility: [place], [place] Site . Site : 1950 Study: XRay Shoulder Left [id number]/20/2018 3:57:20 AM Ordering Physician: Doctor Arthur Final Report: INDICATION: PAIN IN LEFT SHOULDER, NO KNOWN INJURY TECHNIQUE: Left shoulder 3 views. COMPARISON: None. FINDINGS: Bones: Alignment is normal. No fractures or bone lesions. Joint spaces: Unremarkable. Soft tissues: Unremarkable. IMPRESSION: Unremarkable left shoulder. Dictated by: Rigo Craig MD @ 02/20/2018 04:03:03 (Electronic Signature) Report Signed by Proxy. ROSA M
== END 2018-02-20 05:03 | disposition home or self-care (01) ==
LOC: MW.ED 02:37
DX: M25.512 Pain in left shoulder (principal); E78.00 Pure hypercholesterolemia, unspecified; I10 Essential (primary) hypertension; Z91.048 Other nonmedicinal substance allergy status; Z79.899 Other long term (current) drug therapy; Z79.82 Long term (current) use of aspirin; Z87.39 Personal history of other diseases of the musculoskeletal system and connective tissue
CPT/HCPCS: 71045; 73030; 80053; 82553; 84484; 84550; 85025; 93005; 96361; 96374; 99284; J1885; J7040

== ENCOUNTER 2018-05-22 15:32 | Emergency (ER) | payer OTHER ==
--- NOTE | 2018-05-22 16:13 | EDM.PDOC ---
ED HPI GENERAL MEDICAL PROBLEM - General Chief Complaint: Back Pain or Injury Stated Complaint: left lower back pain Time Seen by Provider: 05/22/18 16:00 Source of Information: Reports: Patient History Limitations: Reports: No Limitations - History of Present Illness INITIAL COMMENTS - FREE TEXT/NARRATIVE: History of present illness: []Patient has had one-week history of left side trunk pain along her proximal strap that it feels like pressure. Patient has not had a cough, fevers or trauma. His pain in the past and denies any rashes. X-ray small hiatal hernia otherwise negative Review of systems: As per history of present illness and below otherwise all systems reviewed and negative. Past medical history: As per history of present illness and as reviewed below otherwise noncontributory. Surgical history: As per history of present illness and as reviewed below otherwise noncontributory. Social history: No reported history of drug or alcohol abuse. Family history: As per history of present illness and as reviewed below otherwise noncontributory. Physical exam: General: Well developed, well nourished in NAD HEENT: Atraumatic, normocephalic, pupils reactive, negative for conjunctival pallor or scleral icterus, mucous membranes moist, throat clear, neck supple, nontender, trachea midline. Lungs: Clear to auscultation, breath sounds equal bilaterally, chest nontender. Heart: S1S2, regular, negative for clicks, rubs, or JVD. Abdomen: Soft, nondistended, nontender. Negative for masses or hepatosplenomegaly. Negative for costovertebral tenderness. Pelvis: Stable nontender. 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: Deferred. Rectal: Deferred. Extremities: Atraumatic, negative for cords or calf pain. Neurovascular unremarkable. Neuro: Awake, alert, oriented. Cranial nerves II through XII unremarkable. Cerebellum unremarkable. Motor and sensory unremarkable throughout. Exam nonfocal. Diagnostics: []Chest x-ray negative Therapeutics: []Patient declined pain meds Impression: []Positive musculoskeletal chest wall pain possible, early shingles (no rash present) Plan: []Ibuprofen for pain follow-up with primary care return if rash develops. Definitive disposition and diagnosis as appropriate pending reevaluation and review of above. Left Chest Pain Score (Numeric/FACES): 3 - Related Data Allergies Allergy/AdvReac Type Severity Reaction Status Date / Time iodine Allergy Hives Verified 02/20/18 02:51 Home Meds: Home Meds Folic Acid 1 mg PO DAILY 08/25/17 [History] Methotrexate 2.5 mg PO WEEKLY 08/25/17 [History] Metoprolol Succinate 25 mg PO DAILY 08/25/17 [History] Rosuvastatin Calcium 5 mg PO DAILY 08/25/17 [History] Aspirin 81 mg PO DAILY 09/02/17 [History] Ranitidine [Zantac] 150 mg PO BID 09/02/17 [History] Calcium Carbonate [Calcium] 1 tab DAILY 05/22/18 [History] Fexofenadine/Pseudoephedrine [Xochilt-D 24 Hour Tablet] 1 tab DAILY 05/22/18 [ History] Multivit-Min/Folic Acid/Vit K1 [Multi For Her 50 Plus Softgel] 1 tab DAILY 05/22 [History] Past Medical History - Past Health History Medical/Surgical History: Denies Medical/Surgical History HEENT History: Reports: None Cardiovascular History: Reports: High Cholesterol, Hypertension Respiratory History: Reports: Pneumonia, Recurrent Gastrointestinal History: Reports: GERD 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 History: Reports: None 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: Musculoskeletal History: Reports: RA Neurological History: Reports: None Psychiatric History: Reports: Anxiety, Depression Endocrine/Metabolic History: Reports: None Hematologic History: Reports: None Immunologic History: Reports: None Oncologic (Cancer) History: Reports: None Dermatologic History: Reports: None - Infectious Disease History Infectious Disease History: Reports: None - Past Surgical History Head Surgeries/Procedures: Reports: None HEENT Surgical History: Reports: None Female Surgical History: Reports: Hysterectomy Musculoskeletal Surgical History: Reports: None Social & Family History - Family History Family Medical History: Noncontributory - Caffeine Use Caffeine Use: Reports: Coffee ED ROS GENERAL - Review of Systems Review Of Systems: ROS reveals no pertinent complaints other than HPI. ED EXAM, UPPER BACK/NECK PAIN - Physical Exam Exam: See Below (See history of present illness) Course - Vital Signs Last Recorded V/S: Last Vital Signs Temp 97.2 F 05/22/18 16:01 Pulse 81 05/22/18 16:01 Resp 18 05/22/18 16:01 BP 126/74 05/22/18 16:01 Pulse Ox 97 05/22/18 16:01 - Orders/Labs/Meds Orders: Active Orders 24 hr Category Date Time Status Chest 2V [CR] Stat Exams 05/22/18 16:21 Taken Departure - Departure Time of Disposition: 17:23 Disposition: Home, Self-Care 01 Condition: Good Clinical Impression: Musculoskeletal chest pain - Discharge Information *PRESCRIPTION DRUG MONITORING PROGRAM REVIEWED*: Not Applicable Forms: ED Department Discharge Additional Instructions: The following information is given to patients seen in the emergency department who are being discharged to home. This information is to outline your options for follow-up care. We provide all patients seen in our emergency department with a follow-up referral. The need for follow-up, as well as the timing and circumstances, are variable depending upon the specifics of your emergency department visit. If you don't have a primary care physician on staff, we will provide you with a referral. We always advise you to contact your personal physician following an emergency department visit to inform them of the circumstance of the visit and for follow-up with them and/or the need for any referrals to a consulting specialist. The emergency department will also refer you to a specialist when appropriate. This referral assures that you have the opportunity for follow-up care with a specialist. All of these measure are taken in an effort to provide you with optimal care, which includes your follow-up. Under all circumstances we always encourage you to contact your private physician who remains a resource for coordinating your care. When calling for follow-up care, please make the office aware that this follow-up is from your recent emergency room visit. If for any reason you are refused follow-up, please contact the [facility] Emergency Department at and asked to speak to the emergency department charge nurse. Ibuprofen for pain, follow up with primary care return if a rash develops. [facility] [address] [place] [id number] - My Orders Last 24 Hours: My Active Orders 05/22/18 16:21 Chest 2V [CR] Stat - Assessment/Plan Last 24 Hours: My Active Orders 05/22/18 16:21 Chest 2V [CR] Stat
[2018-05-22] MEDS ORDERED: cefTRIAXone 1 GM in Premix Bag 1 BAG IV ONE (16:43)
--- NOTE | 2018-05-22 17:43 | CR ---
EXAM DATE: 05/22/18 PATIENT'S AGE: 67 Patient: EUGENE CLARKE Facility: [place], [place] Site . Site : 1950 Study: XRay Chest [id number]/20/2018 4:43:18 PM Ordering Physician: Hiren Harley Final Report: INDICATION: Left-sided chest pain TECHNIQUE: Chest 2 views. COMPARISON: February 20, 2018 FINDINGS: Cardiovascular and mediastinum: Heart size and vasculature are normal in caliber and appearance. Mediastinum is within normal limits. There is a small hiatal hernia. Lungs and pleural spaces: Stable linear atelectasis or scarring in the right lung bases. No sign of pleural effusion. No pneumothorax. Bones and soft tissues: No significant findings. IMPRESSION: No sign of acute cardiopulmonary disease. Small hiatal hernia. Dictated by Namita Ott MD @ May 22 2018 5:10PM (Electronic Signature) Report Signed by Proxy. ROSA M
== END 2018-05-22 17:34 | disposition home or self-care (01) ==
LOC: MW.ED 15:32
DX: R07.89 Other chest pain (principal); I10 Essential (primary) hypertension; E78.00 Pure hypercholesterolemia, unspecified; K21.9 Gastro-esophageal reflux disease without esophagitis; F41.9 Anxiety disorder, unspecified; F32.9 Major depressive disorder, single episode, unspecified; Z79.899 Other long term (current) drug therapy; Z79.82 Long term (current) use of aspirin
CPT/HCPCS: 71046; 71046-26; 99283

== ENCOUNTER 2018-06-20 04:01 | Emergency (ER) | payer MEDICARE, OTHER ==
[2018-06-20 04:47] LABS: CHLORIDE,CL 105 mmol/L (98-107); SODIUM,NA 141 mmol/L (136-145)
--- NOTE | 2018-06-20 06:51 | EDM.PDOC ---
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 Review of systems: As per history of present illness and below otherwise all systems reviewed and negative. Past medical history: As per history of present illness and as reviewed below otherwise noncontributory. Surgical history: As per history of present illness and as reviewed below otherwise noncontributory. Social history: No reported history of drug or alcohol abuse. Family history: As per history of present illness and as reviewed below otherwise noncontributory. Physical exam: HEENT: Atraumatic, normocephalic, pupils reactive, negative for conjunctival pallor or scleral icterus, mucous membranes moist, throat clear, neck supple, nontender, trachea midline. Lungs: Clear to auscultation, breath sounds equal bilaterally, chest nontender. Heart: S1S2, regular, negative for clicks, rubs, or JVD. Abdomen: Soft, nondistended, nontender. Negative for masses or hepatosplenomegaly. Negative for costovertebral tenderness. Pelvis: Stable nontender. 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: Deferred. Rectal: Deferred. Extremities: Atraumatic, negative for cords or calf pain. Neurovascular unremarkable. Neuro: Awake, alert, oriented. Cranial nerves II through XII unremarkable. Cerebellum unremarkable. Motor and sensory unremarkable throughout. Exam nonfocal. Diagnostics: CBC CMP troponin PT/INR chest x-ray EKG Therapeutics: None Impression: #1 hypertension #2 anxiety #3 medical screening exam Definitive disposition and diagnosis as appropriate pending reevaluation and review of above. - Related Data Allergies Allergy/AdvReac Type Severity Reaction Status Date / Time iodine Allergy Hives Verified 06/20/18 04:08 Home Meds: Home Meds Folic Acid 1 mg PO DAILY 08/25/17 [History] Methotrexate 2.5 mg PO WEEKLY 08/25/17 [History] Metoprolol Succinate 25 mg PO BID 08/25/17 [History] Rosuvastatin Calcium 5 mg PO ASDIRECTED 08/25/17 [History] Aspirin 81 mg PO DAILY 09/02/17 [History] Ranitidine [Zantac] 150 mg PO BID 09/02/17 [History] Calcium Carbonate [Calcium] 500 mg PO DAILY 05/22/18 [History] Fexofenadine/Pseudoephedrine [Xochilt-D 24 Hour Tablet] 10 mg PO DAILY PRN 05/22 [History] Multivit-Min/Folic Acid/Vit K1 [Multi For Her 50 Plus Softgel] 1 tab DAILY 05/22 [History] LORazepam 0 mg PO DAILY PRN 06/20/18 [History] Past Medical History - Past Health History Medical/Surgical History: Denies Medical/Surgical History HEENT History: Reports: Other (See Below) Other HEENT History: wears glasses Cardiovascular History: Reports: High Cholesterol, Hypertension Other Cardiovascular History: pt states "i have a tear in my heart" Respiratory History: Reports: Pneumonia, Recurrent Gastrointestinal History: Reports: GERD 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 History: Reports: None 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: Musculoskeletal History: Reports: RA Neurological History: Reports: None Psychiatric History: Reports: Anxiety, Depression Endocrine/Metabolic History: Reports: None Hematologic History: Reports: None Immunologic History: Reports: None Oncologic (Cancer) History: Reports: None Dermatologic History: Reports: None - Infectious Disease History Infectious Disease History: Reports: None - Past Surgical History Head Surgeries/Procedures: Reports: None HEENT Surgical History: Reports: None Cardiovascular Surgical History: Reports: None Respiratory Surgical History: Reports: None GI Surgical History: Reports: None Female Surgical History: Reports: Hysterectomy, Other (See Below) Other Female Surgeries/Procedures: bladder repair Musculoskeletal Surgical History: Reports: None Social & Family History - Family History Family Medical History: Noncontributory - Tobacco Use Smoking Status *Q: Never Smoker Second Hand Smoke Exposure: No - Caffeine Use Caffeine Use: Reports: Coffee - Recreational Drug Use Recreational Drug Use: No ED ROS GENERAL - Review of Systems Review Of Systems: ROS reveals no pertinent complaints other than HPI. ED EXAM, GENERAL - Physical Exam Exam: See Below (See dictation) Course - Vital Signs Last Recorded V/S: Last Vital Signs Temp 36.2 C 06/20/18 04:04 Pulse 62 06/20/18 05:21 Resp 18 06/20/18 05:21 BP 149/68 H 06/20/18 05:21 Pulse Ox 98 06/20/18 05:21 - Orders/Labs/Meds Orders: Active Orders 24 hr Category Date Time Status Chest 1V Frontal [CR] Stat Exams 06/20/18 04:13 Taken Labs: Laboratory Tests 06/20/18 06/20/18 06/20/18 Range/Units 04:24 04:24 04:24 WBC 7.02 (4.0-11.0) K/uL RBC 4.53 (4.30-5.90) M/uL Hgb 13.4 (12.0-16.0) g/dL Hct 40.8 (36.0-46.0) % MCV 90.1 (80.0-98.0) fL MCH 29.6 (27.0-32.0) pg MCHC 32.8 (31.0-37.0) g/dL RDW Std Deviation 51.0 (28.0-62.0) fl RDW Coeff of Mert 16 H (11.0-15.0) % Plt Count 274 (150-400) K/uL MPV 8.90 (7.40-12.00) fL Neut % (Auto) 56.2 (48.0-80.0) % Lymph % (Auto) 32.8 (16.0-40.0) % Caswell % (Auto) 8.3 (0.0-15.0) % Eos % (Auto) 2.1 (0.0-7.0) % Baso % (Auto) 0.6 (0.0-1.5) % Neut # (Auto) 4.0 (1.4-5.7) K/uL Lymph # (Auto) 2.3 (0.6-2.4) K/uL Caswell # (Auto) 0.6 (0.0-0.8) K/uL Eos # (Auto) 0.2 (0.0-0.7) K/uL Baso # (Auto) 0.0 (0.0-0.1) K/uL Nucleated RBC % 0.0 /100WBC Nucleated RBCs # 0 K/uL INR 0.96 Sodium 141 (136-145) mmol/L Potassium 4.3 (3.5-5.1) mmol/L Chloride 105 (98-107) mmol/L Carbon Dioxide 30.0 (21.0-32.0) mmol/L BUN 14 (7.0-18.0) mg/dL Creatinine 0.7 (0.6-1.0) mg/dL Est Cr Clr Drug Dosing 60.84 mL/min Estimated GFR (MDRD) > 60.0 ml/min Glucose 101 (74-106) mg/dL Calcium 10.0 (8.5-10.1) mg/dL Total Bilirubin 0.2 (0.2-1.0) mg/dL AST 22 (15-37) IU/L ALT 34 (14-63) IU/L Alkaline Phosphatase 78 (46-116) U/L Troponin I < 0.050 (0.000-0.056) ng/mL Total Protein 7.0 (6.4-8.2) g/dL Albumin 3.7 (3.4-5.0) g/dL Globulin 3.3 (2.0-3.5) g/dL Albumin/Globulin Ratio 1.1 L (1.3-2.8) Departure - Departure Time of Disposition: 06:50 Disposition: Home, Self-Care 01 Condition: Good Clinical Impression: Hypertension, Encounter for medical screening examination, Anxiety - Discharge Information *PRESCRIPTION DRUG MONITORING PROGRAM REVIEWED*: Not Applicable *COPY OF PRESCRIPTION DRUG MONITORING REPORT IN PATIENT GENEVIEVE: Not Applicable Referrals: PCP,Unknown [Primary Care Provider] - Additional Instructions: The following information is given to patients seen in the emergency department who are being discharged to home. This information is to outline your options for follow-up care. We provide all patients seen in our emergency department with a follow-up referral. The need for follow-up, as well as the timing and circumstances, are variable depending upon the specifics of your emergency department visit. If you don't have a primary care physician on staff, we will provide you with a referral. We always advise you to contact your personal physician following an emergency department visit to inform them of the circumstance of the visit and for follow-up with them and/or the need for any referrals to a consulting specialist. The emergency department will also refer you to a specialist when appropriate. This referral assures that you have the opportunity for followup care with a specialist. All of these measure are taken in an effort to provide you with optimal care, which includes your followup. Under all circumstances we always encourage you to contact your private physician who remains a resource for coordinating your care. When calling for followup care, please make the office aware that this follow-up is from your recent emergency room visit. If for any reason you are refused follow-up, please contact the [facility] emergency department at and asked to speak to the emergency department charge nurse. Continue current medications follow-up primary medical doctor/cardiology as needed as discussed and return as needed as discussed - My Orders Last 24 Hours: My Active Orders 06/20/18 04:13 Chest 1V Frontal [CR] Stat - Assessment/Plan Last 24 Hours: My Active Orders 06/20/18 04:13 Chest 1V Frontal [CR] Stat
--- NOTE | 2018-06-22 10:44 | CR ---
EXAM DATE: 06/20/18 PATIENT'S AGE: 67 Patient: EUGENE CLARKE Facility: [place], [place] Site . Site : 1950 Study: XRay Chest [id number]/18/2018 4:44:43 AM Ordering Physician: Doctor Arthur Final Report: INDICATION: High blood pressure TECHNIQUE: Chest 1 view. COMPARISON: 05/22/2018 FINDINGS: Cardiovascular and mediastinum: Heart size and vasculature are normal in caliber and appearance. Mediastinum is within normal limits. Small hiatal hernia. Lungs and pleural space: Lungs are clear. No sign of infiltrate or mass. No sign of pleural effusion. No pneumothorax. Bones and soft tissues: No significant findings. IMPRESSION: No acute pulmonary cardiac abnormalities. Small hiatal hernia. Dictated by Rigo Carig MD @ 06/20/2018 4:48:22 AM Dictated by: Rigo Craig MD @ 06/20/2018 04:48:26 (Electronic Signature) Report Signed by Proxy. [facility]OSPITALJuan
== END 2018-06-20 06:58 | disposition home or self-care (01) ==
LOC: MW.ED 04:01
DX: I10 Essential (primary) hypertension (principal); F41.9 Anxiety disorder, unspecified; E78.00 Pure hypercholesterolemia, unspecified; F32.9 Major depressive disorder, single episode, unspecified; Z79.82 Long term (current) use of aspirin; Z79.899 Other long term (current) drug therapy
CPT/HCPCS: 36415; 71045; 71045-26; 80053; 84484; 85025; 85610; 99283; 99284-25

== ENCOUNTER 2018-12-23 22:09 | Emergency (ER) | payer MEDICARE, OTHER ==
--- NOTE | 2018-12-23 23:20 | CR ---
Indication: Hypertension Technique: Chest 1 view Comparison: N June 20, 2018 one Findings/Impression: Stable cardiomediastinal silhouette. Moderate size hiatal hernia. Minimal patchy atelectasis or infiltrate in the right costophrenic angle. No effusion or pneumothorax. No acute osseous abnormality. Dictated by Namita Ott MD @ Dec 23 2018 11:17PM Signed by Dr. Namita Ott @ Dec 23 2018 11:18PM
--- NOTE | 2018-12-23 23:45 | EDM.PDOC ---
ED HPI GENERAL MEDICAL PROBLEM - General Chief Complaint: Cardiovascular Problem Stated Complaint: UNKNOWN Time Seen by Provider: 12/23/18 22:49 - History of Present Illness INITIAL COMMENTS - FREE TEXT/NARRATIVE: HISTORY AND PHYSICAL: History of present illness: Patient is a 68-year-old white female who presents here for medical screening exam related to isolated elevated blood pressure with systolic 170 at home she denies any chest pain shortness breath or other concern was alarmed due to her history of what sounds like a chronic aortic dissection for which she has had relatively tight blood pressure control and medical management. Review of systems: As per history of present illness and below otherwise all systems reviewed and negative. Past medical history: As per history of present illness and as reviewed below otherwise noncontributory. Surgical history: As per history of present illness and as reviewed below otherwise noncontributory. Social history: No reported history of drug or alcohol abuse. Family history: As per history of present illness and as reviewed below otherwise noncontributory. Physical exam: HEENT: Atraumatic, normocephalic, pupils reactive, negative for conjunctival pallor or scleral icterus, mucous membranes moist, throat clear, neck supple, nontender, trachea midline. Lungs: Clear to auscultation, breath sounds equal bilaterally, chest nontender. Heart: S1S2, regular, negative for clicks, rubs, or JVD. Abdomen: Soft, nondistended, nontender. Negative for masses or hepatosplenomegaly. Negative for costovertebral tenderness. Pelvis: Stable nontender. 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: Deferred. Rectal: Deferred. Extremities: Atraumatic, negative for cords or calf pain. Neurovascular unremarkable. Neuro: Awake, alert, oriented. Cranial nerves II through XII unremarkable. Cerebellum unremarkable. Motor and sensory unremarkable throughout. Exam nonfocal. Diagnostics: Chest x-ray EKG Therapeutics: Metoprolol 25 mg by mouth Impression: #1 medical screening exam #2 history of chronic aortic dissection #3 history of hypertension Definitive disposition and diagnosis as appropriate pending reevaluation and review of above. - Related Data Allergies Allergy/AdvReac Type Severity Reaction Status Date / Time iodine Allergy Hives Verified 06/20/18 04:08 Home Meds: Home Meds Folic Acid 1 mg PO DAILY 08/25/17 [History] Methotrexate 2.5 mg PO WEEKLY 08/25/17 [History] Metoprolol Succinate 25 mg PO BID 08/25/17 [History] Rosuvastatin Calcium 5 mg PO ASDIRECTED 08/25/17 [History] Aspirin 81 mg PO DAILY 09/02/17 [History] Ranitidine [Zantac] 150 mg PO BID 09/02/17 [History] Calcium Carbonate [Calcium] 500 mg PO DAILY 05/22/18 [History] Fexofenadine/Pseudoephedrine [Xochilt-D 24 Hour Tablet] 10 mg PO DAILY PRN 05/22 [History] Multivit-Min/Folic Acid/Vit K1 [Multi For Her 50 Plus Softgel] 1 tab DAILY 05/22 [History] LORazepam 0 mg PO DAILY PRN 06/20/18 [History] Past Medical History - Past Health History Medical/Surgical History: Denies Medical/Surgical History HEENT History: Reports: Other (See Below) Other HEENT History: wears glasses Cardiovascular History: Reports: High Cholesterol, Hypertension Other Cardiovascular History: pt states "i have a tear in my heart" Respiratory History: Reports: Pneumonia, Recurrent Gastrointestinal History: Reports: GERD 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 History: Reports: None 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: Musculoskeletal History: Reports: RA Neurological History: Reports: None Psychiatric History: Reports: Anxiety, Depression Endocrine/Metabolic History: Reports: None Hematologic History: Reports: None Immunologic History: Reports: None Oncologic (Cancer) History: Reports: None Dermatologic History: Reports: None - Infectious Disease History Infectious Disease History: Reports: None - Past Surgical History Head Surgeries/Procedures: Reports: None HEENT Surgical History: Reports: None Cardiovascular Surgical History: Reports: None Respiratory Surgical History: Reports: None GI Surgical History: Reports: None Female Surgical History: Reports: Hysterectomy, Other (See Below) Other Female Surgeries/Procedures: bladder repair Musculoskeletal Surgical History: Reports: None Social & Family History - Family History Family Medical History: Noncontributory - Tobacco Use Smoking Status *Q: Never Smoker - Caffeine Use Caffeine Use: Reports: Coffee - Recreational Drug Use Recreational Drug Use: No ED ROS GENERAL - Review of Systems Review Of Systems: ROS reveals no pertinent complaints other than HPI. ED EXAM, GENERAL - Physical Exam Exam: See Below (The dictation) Course - Vital Signs Text/Narrative:: Patient has had an unremarkable ER course: Blood pressures 137/80 patient is eager for discharge and request discharge follow-up with Dr. Vega Last Recorded V/S: Last Vital Signs Temp 36.1 C 12/23/18 22:10 Pulse 65 12/23/18 23:37 Resp 18 12/23/18 23:37 BP 137/91 H 12/23/18 23:37 Pulse Ox 96 12/23/18 23:37 - Orders/Labs/Meds Orders: Active Orders 24 hr Category Date Time Status EKG Documentation Completion [RC] STAT Care 12/23/18 22:46 Active Departure - Departure Time of Disposition: 23:43 Disposition: Home, Self-Care 01 Condition: Good Clinical Impression: Encounter for medical screening examination, History of hypertension, History of aortic dissection Referrals: PCP,None [Primary Care Provider] - Additional Instructions: The following information is given to patients seen in the emergency department who are being discharged to home. This information is to outline your options for follow-up care. We provide all patients seen in our emergency department with a follow-up referral. The need for follow-up, as well as the timing and circumstances, are variable depending upon the specifics of your emergency department visit. If you don't have a primary care physician on staff, we will provide you with a referral. We always advise you to contact your personal physician following an emergency department visit to inform them of the circumstance of the visit and for follow-up with them and/or the need for any referrals to a consulting specialist. The emergency department will also refer you to a specialist when appropriate. This referral assures that you have the opportunity for followup care with a specialist. All of these measure are taken in an effort to provide you with optimal care, which includes your followup. Under all circumstances we always encourage you to contact your private physician who remains a resource for coordinating your care. When calling for followup care, please make the office aware that this follow-up is from your recent emergency room visit. If for any reason you are refused follow-up, please contact the [facility] emergency department at and asked to speak to the emergency department charge nurse. Continue current medications follow-up Dr. Vega in a.m. return as needed as discussed - My Orders Last 24 Hours: My Active Orders 12/23/18 22:46 EKG Documentation Completion [RC] STAT - Assessment/Plan Last 24 Hours: My Active Orders 12/23/18 22:46 EKG Documentation Completion [RC] STAT
== END 2018-12-23 23:51 | disposition home or self-care (01) ==
LOC: MW.ED 22:09
DX: I71.00 Dissection of unspecified site of aorta (principal); I10 Essential (primary) hypertension; Z79.899 Other long term (current) drug therapy; Z79.82 Long term (current) use of aspirin
CPT/HCPCS: 71045; 71045-26; 93005; 99283; 99283-25

== ENCOUNTER 2019-02-27 04:10 | Emergency (ER) | payer MEDICARE, OTHER ==
--- NOTE | 2019-02-27 04:29 | EDM.PDOC ---
ED HPI GENERAL MEDICAL PROBLEM - General Chief Complaint: Cardiovascular Problem Stated Complaint: HBP Time Seen by Provider: 02/27/19 04:27 - History of Present Illness INITIAL COMMENTS - FREE TEXT/NARRATIVE: HISTORY AND PHYSICAL: History of present illness: Patient is a 68-year-old white female who presents with a concern of elevated blood pressure patient has history of aortic dissection is been managed medically and is anxious regarding elevated blood pressure was noted at home. She has no chest pain shortness of breath nausea vomiting or other other concern Review of systems: As per history of present illness and below otherwise all systems reviewed and negative. Past medical history: As per history of present illness and as reviewed below otherwise noncontributory. Surgical history: As per history of present illness and as reviewed below otherwise noncontributory. Social history: No reported history of drug or alcohol abuse. Family history: As per history of present illness and as reviewed below otherwise noncontributory. Physical exam: HEENT: Atraumatic, normocephalic, pupils reactive, negative for conjunctival pallor or scleral icterus, mucous membranes moist, throat clear, neck supple, nontender, trachea midline. Lungs: Clear to auscultation, breath sounds equal bilaterally, chest nontender. Heart: S1S2, regular, negative for clicks, rubs, or JVD. Abdomen: Soft, nondistended, nontender. Negative for masses or hepatosplenomegaly. Negative for costovertebral tenderness. Pelvis: Stable nontender. 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: Deferred. Rectal: Deferred. Extremities: Atraumatic, negative for cords or calf pain. Neurovascular unremarkable. Neuro: Awake, alert, oriented. Cranial nerves II through XII unremarkable. Cerebellum unremarkable. Motor and sensory unremarkable throughout. Exam nonfocal. Diagnostics: EKG Therapeutics: None Impression: #1 medical screening exam Definitive disposition and diagnosis as appropriate pending reevaluation and review of above. - Related Data Allergies Allergy/AdvReac Type Severity Reaction Status Date / Time iodine Allergy Hives Verified 06/20/18 04:08 Home Meds: Home Meds Folic Acid 1 mg PO DAILY 08/25/17 [History] Methotrexate 2.5 mg PO WEEKLY 08/25/17 [History] Metoprolol Succinate 25 mg PO BID 08/25/17 [History] Rosuvastatin Calcium 5 mg PO ASDIRECTED 08/25/17 [History] Aspirin 81 mg PO DAILY 09/02/17 [History] Ranitidine [Zantac] 150 mg PO BID 09/02/17 [History] Calcium Carbonate [Calcium] 500 mg PO DAILY 05/22/18 [History] Fexofenadine/Pseudoephedrine [Xochilt-D 24 Hour Tablet] 10 mg PO DAILY PRN 05/22 [History] Multivit-Min/Folic Acid/Vit K1 [Multi For Her 50 Plus Softgel] 1 tab DAILY 05/22 [History] LORazepam 0 mg PO DAILY PRN 06/20/18 [History] Past Medical History - Past Health History Medical/Surgical History: Denies Medical/Surgical History HEENT History: Reports: Other (See Below) Other HEENT History: wears glasses Cardiovascular History: Reports: High Cholesterol, Hypertension Other Cardiovascular History: pt states "i have a tear in my heart" Respiratory History: Reports: Pneumonia, Recurrent Gastrointestinal History: Reports: GERD 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 History: Reports: None 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: Musculoskeletal History: Reports: RA Neurological History: Reports: None Psychiatric History: Reports: Anxiety, Depression Endocrine/Metabolic History: Reports: None Hematologic History: Reports: None Immunologic History: Reports: None Oncologic (Cancer) History: Reports: None Dermatologic History: Reports: None - Infectious Disease History Infectious Disease History: Reports: None - Past Surgical History Head Surgeries/Procedures: Reports: None HEENT Surgical History: Reports: None Cardiovascular Surgical History: Reports: None Respiratory Surgical History: Reports: None GI Surgical History: Reports: None Female Surgical History: Reports: Hysterectomy, Other (See Below) Other Female Surgeries/Procedures: bladder repair Musculoskeletal Surgical History: Reports: None Social & Family History - Family History Family Medical History: Noncontributory - Caffeine Use Caffeine Use: Reports: Coffee ED ROS GENERAL - Review of Systems Review Of Systems: ROS reveals no pertinent complaints other than HPI. ED EXAM, GENERAL - Physical Exam Exam: See Below (See dictation) Departure - Departure Time of Disposition: 04:28 Disposition: Home, Self-Care 01 Condition: Good Clinical Impression: Encounter for medical screening examination Referrals: PCP,None [Primary Care Provider] - Additional Instructions: The following information is given to patients seen in the emergency department who are being discharged to home. This information is to outline your options for follow-up care. We provide all patients seen in our emergency department with a follow-up referral. The need for follow-up, as well as the timing and circumstances, are variable depending upon the specifics of your emergency department visit. If you don't have a primary care physician on staff, we will provide you with a referral. We always advise you to contact your personal physician following an emergency department visit to inform them of the circumstance of the visit and for follow-up with them and/or the need for any referrals to a consulting specialist. The emergency department will also refer you to a specialist when appropriate. This referral assures that you have the opportunity for followup care with a specialist. All of these measure are taken in an effort to provide you with optimal care, which includes your followup. Under all circumstances we always encourage you to contact your private physician who remains a resource for coordinating your care. When calling for followup care, please make the office aware that this follow-up is from your recent emergency room visit. If for any reason you are refused follow-up, please contact the [facility] emergency department at and asked to speak to the emergency department charge nurse. Follow-up primary medical doctor continue current medications return as needed as discussed
== END 2019-02-27 04:46 | disposition home or self-care (01) ==
LOC: MW.ED 04:10
DX: Z13.9 Encounter for screening, unspecified (principal); I10 Essential (primary) hypertension; F32.9 Major depressive disorder, single episode, unspecified; Z88.8 Allergy status to other drugs, medicaments and biological substances; Z79.899 Other long term (current) drug therapy; Z79.82 Long term (current) use of aspirin
CPT/HCPCS: 93005; 99283

== ENCOUNTER 2019-03-17 05:35 | Emergency (ER) | payer MEDICARE ==
--- NOTE | 2019-03-17 05:53 | EDM.PDOC ---
ED HPI GENERAL MEDICAL PROBLEM - General Chief Complaint: General Stated Complaint: ABD PAIN Time Seen by Provider: 03/17/19 05:49 Source of Information: Reports: Patient History Limitations: Reports: No Limitations - History of Present Illness INITIAL COMMENTS - FREE TEXT/NARRATIVE: History of present illness: [] Review of systems: As per history of present illness and below otherwise all systems reviewed and negative. Past medical history: As per history of present illness and as reviewed below otherwise noncontributory. Surgical history: As per history of present illness and as reviewed below otherwise noncontributory. Social history: No reported history of drug or alcohol abuse. Family history: As per history of present illness and as reviewed below otherwise noncontributory. Physical exam: General: Well developed, well nourished in NAD HEENT: Atraumatic, normocephalic, pupils reactive, negative for conjunctival pallor or scleral icterus, mucous membranes moist, throat clear, neck supple, nontender, trachea midline. Lungs: Clear to auscultation, breath sounds equal bilaterally, chest nontender. Heart: S1S2, regular, negative for clicks, rubs, or JVD. Abdomen: NABS, Soft, nondistended, nontender. Negative for masses or hepatosplenomegaly. Negative for costovertebral tenderness. Pelvis: Stable nontender. 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: Deferred. Rectal: Deferred. Extremities: Atraumatic, negative for cords or calf pain. Neurovascular unremarkable. Neuro: Awake, alert, oriented. Cranial nerves II through XII unremarkable. Cerebellum unremarkable. Motor and sensory unremarkable throughout. Exam nonfocal. Skin:warm and dry Diagnostics: Therapeutics: ED Course: Impression: Prescriptions: Plan: Definitive disposition and diagnosis as appropriate pending reevaluation and review of above. - Related Data Allergies Allergy/AdvReac Type Severity Reaction Status Date / Time iodine Allergy Hives Verified 02/27/19 04:32 Home Meds: Home Meds Folic Acid 1 mg PO DAILY 08/25/17 [History] Methotrexate 2.5 mg PO WEEKLY 08/25/17 [History] Metoprolol Succinate 25 mg PO BID 08/25/17 [History] Rosuvastatin Calcium 5 mg PO ASDIRECTED 08/25/17 [History] Aspirin 81 mg PO DAILY 09/02/17 [History] Ranitidine [Zantac] 150 mg PO BID 09/02/17 [History] Calcium Carbonate [Calcium] 500 mg PO DAILY 05/22/18 [History] Fexofenadine/Pseudoephedrine [Xochilt-D 24 Hour Tablet] 10 mg PO DAILY PRN 05/22 [History] Multivit-Min/Folic Acid/Vit K1 [Multi For Her 50 Plus Softgel] 1 tab DAILY 05/22 [History] LORazepam 0 mg PO DAILY PRN 06/20/18 [History] Past Medical History - Past Health History Medical/Surgical History: Denies Medical/Surgical History HEENT History: Reports: Other (See Below) Other HEENT History: wears glasses Cardiovascular History: Reports: High Cholesterol, Hypertension Other Cardiovascular History: pt states "i have a tear in my heart" Respiratory History: Reports: Pneumonia, Recurrent Other Respiratory History: pneumonia Gastrointestinal History: Reports: GERD 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 History: Reports: None 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: Musculoskeletal History: Reports: RA Neurological History: Reports: None Psychiatric History: Reports: Anxiety, Depression Endocrine/Metabolic History: Reports: None Hematologic History: Reports: None Immunologic History: Reports: None Oncologic (Cancer) History: Reports: None Dermatologic History: Reports: None - Infectious Disease History Infectious Disease History: Reports: None - Past Surgical History Head Surgeries/Procedures: Reports: None HEENT Surgical History: Reports: None Cardiovascular Surgical History: Reports: None Respiratory Surgical History: Reports: None GI Surgical History: Reports: None Female Surgical History: Reports: Hysterectomy, Other (See Below) Other Female Surgeries/Procedures: bladder repair Musculoskeletal Surgical History: Reports: None Social & Family History - Family History Family Medical History: Noncontributory - Caffeine Use Caffeine Use: Reports: Coffee Departure - Discharge Information Referrals: PCP,None [Primary Care Provider] -
[2019-03-17] MEDS ORDERED: Ondansetron 4 MG/2 ML SDV IVPUSH ONE (05:54)
[2019-03-17 06:16] LABS: CHLORIDE,CL 106 mmol/L (98-107); SODIUM,NA 143 mmol/L (136-145)
--- NOTE | 2019-03-17 06:46 | EDM.PDOC ---
ED HPI GENERAL MEDICAL PROBLEM - General Chief Complaint: General Stated Complaint: ABD PAIN Time Seen by Provider: 03/17/19 05:49 Source of Information: Reports: Patient History Limitations: Reports: No Limitations - History of Present Illness INITIAL COMMENTS - FREE TEXT/NARRATIVE: History of present illness: []Patient takes methotrexate on Sundays and started having dizziness the following day. She has been continually nauseated for the last 2 days now and Pepto-Bismol is not helping her. Patient denies any fevers, chills, headache, blurry vision, vomiting abdominal or chest pain or diarrhea. Patient has infrarenal abdominal aorta that her primary doctor is following. She has no complaints regarding this at this time. Review of systems: As per history of present illness and below otherwise all systems reviewed and negative. Past medical history: As per history of present illness and as reviewed below otherwise noncontributory. Surgical history: As per history of present illness and as reviewed below otherwise noncontributory. Social history: No reported history of drug or alcohol abuse. Family history: As per history of present illness and as reviewed below otherwise noncontributory. Physical exam: General: Well developed, well nourished in NAD HEENT: Atraumatic, normocephalic, pupils reactive, negative for conjunctival pallor or scleral icterus, mucous membranes moist, throat clear, neck supple, nontender, trachea midline. Lungs: Clear to auscultation, breath sounds equal bilaterally, chest nontender. Heart: S1S2, regular, negative for clicks, rubs, or JVD. Abdomen: NABS, Soft, nondistended, nontender no rebound or guarding. Negative for masses or hepatosplenomegaly. Negative for costovertebral tenderness. Pelvis: Stable nontender. 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: Deferred. Rectal: Deferred. Extremities: Atraumatic, negative for cords or calf pain. Neurovascular unremarkable. Neuro: Awake, alert, oriented. Cranial nerves II through XII unremarkable. Cerebellum unremarkable. Motor and sensory unremarkable throughout. Exam nonfocal. Skin:warm and dry Diagnostics: CBC, chemistry, UA Therapeutics: Zofran ED Course: Improved tolerated water Impression: Nausea Prescriptions: Zofran Plan: Take meds as directed, follow up with your primary care physician, return to ER if symptoms worsen or change. Definitive disposition and diagnosis as appropriate pending reevaluation and review of above. no pain Pain Score (Numeric/FACES): 0 - Related Data Allergies Allergy/AdvReac Type Severity Reaction Status Date / Time iodine Allergy Hives Verified 02/27/19 04:32 Home Meds: Home Meds Folic Acid 1 mg PO DAILY 08/25/17 [History] Methotrexate 2.5 mg PO WEEKLY 08/25/17 [History] Metoprolol Succinate 25 mg PO BID 08/25/17 [History] Rosuvastatin Calcium 5 mg PO ASDIRECTED 08/25/17 [History] Aspirin 81 mg PO DAILY 09/02/17 [History] Ranitidine [Zantac] 150 mg PO BID 09/02/17 [History] Calcium Carbonate [Calcium] 500 mg PO DAILY 05/22/18 [History] Fexofenadine/Pseudoephedrine [Xochilt-D 24 Hour Tablet] 10 mg PO DAILY PRN 05/22 [History] Multivit-Min/Folic Acid/Vit K1 [Multi For Her 50 Plus Softgel] 1 tab DAILY 05/22 [History] LORazepam 0 mg PO DAILY PRN 06/20/18 [History] Ondansetron [Zofran ODT] 4 mg PO Q6H PRN #12 tab.dis 03/17/19 [Rx] Past Medical History - Past Health History Medical/Surgical History: Denies Medical/Surgical History HEENT History: Reports: Other (See Below) Other HEENT History: wears glasses Cardiovascular History: Reports: High Cholesterol, Hypertension Other Cardiovascular History: pt states "i have a tear in my heart" Respiratory History: Reports: Pneumonia, Recurrent Other Respiratory History: pneumonia Gastrointestinal History: Reports: GERD 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 History: Reports: None 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: Musculoskeletal History: Reports: RA Neurological History: Reports: None Psychiatric History: Reports: Anxiety, Depression Endocrine/Metabolic History: Reports: None Hematologic History: Reports: None Immunologic History: Reports: None Oncologic (Cancer) History: Reports: None Dermatologic History: Reports: None - Infectious Disease History Infectious Disease History: Reports: None - Past Surgical History Head Surgeries/Procedures: Reports: None HEENT Surgical History: Reports: None Cardiovascular Surgical History: Reports: None Respiratory Surgical History: Reports: None GI Surgical History: Reports: None Female Surgical History: Reports: Hysterectomy, Other (See Below) Other Female Surgeries/Procedures: bladder repair Musculoskeletal Surgical History: Reports: None Social & Family History - Family History Family Medical History: Noncontributory - Tobacco Use Smoking Status *Q: Never Smoker - Caffeine Use Caffeine Use: Reports: Coffee - Recreational Drug Use Recreational Drug Use: No ED ROS GENERAL - Review of Systems Review Of Systems: ROS reveals no pertinent complaints other than HPI. ED EXAM, GI/ABD - Physical Exam Exam: See Below (See history of present illness) Course - Vital Signs Last Recorded V/S: Last Vital Signs Temp 96.6 F 03/17/19 05:49 Pulse 66 03/17/19 05:49 Resp 14 03/17/19 05:49 BP 146/82 H 03/17/19 05:49 Pulse Ox 98 03/17/19 05:49 - Orders/Labs/Meds Orders: Active Orders 24 hr Category Date Time Status EKG 12 Lead [EKG Documentation Completion] [RC] STAT Care 03/17/19 06:49 Active CULTURE URINE [RM] Routine Lab 03/17/19 06:41 Ordered Labs: Laboratory Tests 03/17/19 03/17/19 03/17/19 Range/Units 05:45 05:54 06:25 WBC 5.83 (4.0-11.0) K/uL RBC 4.91 (4.30-5.90) M/uL Hgb 14.3 (12.0-16.0) g/dL Hct 43.8 (36.0-46.0) % MCV 89.2 (80.0-98.0) fL MCH 29.1 (27.0-32.0) pg MCHC 32.6 (31.0-37.0) g/dL RDW Std Deviation 48.2 (28.0-62.0) fl RDW Coeff of Mert 15 (11.0-15.0) % Plt Count 285 (150-400) K/uL MPV 9.40 (7.40-12.00) fL Neut % (Auto) 32.1 L (48.0-80.0) % Lymph % (Auto) 56.4 H (16.0-40.0) % [place] % (Auto) 9.3 (0.0-15.0) % Eos % (Auto) 1.9 (0.0-7.0) % Baso % (Auto) 0.3 (0.0-1.5) % Neut # (Auto) 1.9 (1.4-5.7) K/uL Lymph # (Auto) 3.3 H (0.6-2.4) K/uL [place] # (Auto) 0.5 (0.0-0.8) K/uL Eos # (Auto) 0.1 (0.0-0.7) K/uL Baso # (Auto) 0.0 (0.0-0.1) K/uL Nucleated RBC % 0.0 /100WBC Nucleated RBCs # 0 K/uL Sodium 143 (136-145) mmol/L Potassium 3.4 L (3.5-5.1) mmol/L Chloride 106 (98-107) mmol/L Carbon Dioxide 26.0 (21.0-32.0) mmol/L BUN 16 (7.0-18.0) mg/dL Creatinine 0.8 (0.6-1.0) mg/dL Est Cr Clr Drug Dosing 57.31 mL/min Estimated GFR (MDRD) > 60.0 ml/min Glucose 106 (74-106) mg/dL Calcium 9.5 (8.5-10.1) mg/dL Total Bilirubin 0.6 (0.2-1.0) mg/dL AST 19 (15-37) IU/L ALT 23 (14-63) IU/L Alkaline Phosphatase 63 (46-116) U/L Total Protein 7.4 (6.4-8.2) g/dL Albumin 4.0 (3.4-5.0) g/dL Globulin 3.4 (2.6-4.0) g/dL Albumin/Globulin Ratio 1.2 (0.9-1.6) Urine Color YELLOW Urine Appearance SLT CLOUDY Urine pH 5.5 (5.0-8.0) Ur Specific [place] 1.020 (1.001-1.035) Urine Protein NEGATIVE (NEGATIVE) mg/dL Urine Glucose (UA) NEGATIVE (NEGATIVE) mg/dL Urine Ketones NEGATIVE (NEGATIVE) mg/dL Urine Occult Blood NEGATIVE (NEGATIVE) Urine Nitrite NEGATIVE (NEGATIVE) Urine Bilirubin NEGATIVE (NEGATIVE) Urine Urobilinogen 0.2 (<2.0) EU/dL Ur Leukocyte Esterase SMALL H (NEGATIVE) Urine RBC 0-1 (0-2/HPF) Urine WBC 1-4 (0-5/HPF) Ur Epithelial Cells RARE (NONE-FEW) Urine Bacteria RARE (NEGATIVE) Meds: Medications Discontinued Medications Generic Name Dose Route Start Last Admin Trade Name Freq PRN Reason Stop Dose Admin Ondansetron HCl 4 mg 03/17/19 05:54 03/17/19 05:59 Zofran IVPUSH 03/17/19 05:55 4 mg ONETIME ONE Administration Departure - Departure Time of Disposition: 06:58 Disposition: Home, Self-Care 01 Condition: Good Clinical Impression: Nausea - Discharge Information *PRESCRIPTION DRUG MONITORING PROGRAM REVIEWED*: No *COPY OF PRESCRIPTION DRUG MONITORING REPORT IN PATIENT GENEVIEVE: No Prescriptions: Ondansetron [Zofran ODT] 4 mg PO Q6H PRN #12 tab.dis PRN Reason: Nausea Referrals: PCP,None [Primary Care Provider] - Forms: ED Department Discharge Additional Instructions: The following information is given to patients seen in the emergency department who are being discharged to home. This information is to outline your options for follow-up care. We provide all patients seen in our emergency department with a follow-up referral. The need for follow-up, as well as the timing and circumstances, are variable depending upon the specifics of your emergency department visit. If you don't have a primary care physician on staff, we will provide you with a referral. We always advise you to contact your personal physician following an emergency department visit to inform them of the circumstance of the visit and for follow-up with them and/or the need for any referrals to a consulting specialist. The emergency department will also refer you to a specialist when appropriate. This referral assures that you have the opportunity for follow-up care with a specialist. All of these measure are taken in an effort to provide you with optimal care, which includes your follow-up. Under all circumstances we always encourage you to contact your private physician who remains a resource for coordinating your care. When calling for follow-up care, please make the office aware that this follow-up is from your recent emergency room visit. If for any reason you are refused follow-up, please contact the [facility] Emergency Department at and asked to speak to the emergency department charge nurse. [facility] [address] [place] [id number] - My Orders Last 24 Hours: My Active Orders 03/17/19 06:41 CULTURE URINE [RM] Routine 03/17/19 06:49 EKG 12 Lead [EKG Documentation Completion] [RC] STAT - Assessment/Plan Last 24 Hours: My Active Orders 03/17/19 06:41 CULTURE URINE [RM] Routine 03/17/19 06:49 EKG 12 Lead [EKG Documentation Completion] [RC] STAT
== END 2019-03-17 07:30 | disposition home or self-care (01) ==
LOC: MW.ED 05:35
DX: R11.0 Nausea (principal); R42 Dizziness and giddiness; E78.00 Pure hypercholesterolemia, unspecified; I10 Essential (primary) hypertension; K21.9 Gastro-esophageal reflux disease without esophagitis; Z79.899 Other long term (current) drug therapy; Z79.82 Long term (current) use of aspirin
CPT/HCPCS: 36415; 80053; 81001; 85025; 87086; 93005; 96374; 99283; J2405

== ENCOUNTER 2019-03-20 05:14 | Emergency (ER) | payer MEDICARE ==
--- NOTE | 2019-03-20 06:04 | CR ---
INDICATION: Shortness of breath TECHNIQUE: Chest radiograph 1 view COMPARISON: None FINDINGS: Mediastinum: There is stable convex right mediastinal border which may be due to an enlarged tortuous ascending aorta. Small sliding type gastric hiatal hernia (type IV) is present. The heart silhouette is normal in size and morphology. Lung: Both lungs are unremarkable in appearance. No sign of pleural effusion seen. No pneumothorax is identified. Musculoskeletal: Severe diffuse osteopenia is noted. IMPRESSIONS: 1. There is stable convex right mediastinal border which may be due to an enlarged tortuous ascending aorta. 2. Small sliding type gastric hiatal hernia (type IV) is present. Dictated by Ruben Mir MD @ 03/20/2019 6:02:42 AM Dictated by: Ruben Mir MD @ 03/20/2019 06:02:45 (Electronically Signed)
--- NOTE | 2019-03-20 06:19 | EDM.PDOC ---
ED HPI GENERAL MEDICAL PROBLEM - General Chief Complaint: Gastrointestinal Problem Stated Complaint: NAUSEA Time Seen by Provider: 03/20/19 06:16 - History of Present Illness INITIAL COMMENTS - FREE TEXT/NARRATIVE: HISTORY AND PHYSICAL: History of present illness: Patient 68-year-old female presents with concern of nausea. Patient has history of aortic dissection and extreme anxiety related to that it's nonoperable. This nausea is chronic problem with Brenner there intermittently for weeks to months. She denies abdominal pain fever chills or other complaints Review of systems: As per history of present illness and below otherwise all systems reviewed and negative. Past medical history: As per history of present illness and as reviewed below otherwise noncontributory. Surgical history: As per history of present illness and as reviewed below otherwise noncontributory. Social history: No reported history of drug or alcohol abuse. Family history: As per history of present illness and as reviewed below otherwise noncontributory. Physical exam: HEENT: Atraumatic, normocephalic, pupils reactive, negative for conjunctival pallor or scleral icterus, mucous membranes moist, throat clear, neck supple, nontender, trachea midline. Lungs: Clear to auscultation, breath sounds equal bilaterally, chest nontender. Heart: S1S2, regular, negative for clicks, rubs, or JVD. Abdomen: Soft, nondistended, nontender. Negative for masses or hepatosplenomegaly. Negative for costovertebral tenderness. Pelvis: Stable nontender. 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: Deferred. Rectal: Deferred. Extremities: Atraumatic, negative for cords or calf pain. Neurovascular unremarkable. Neuro: Awake, alert, oriented. Cranial nerves II through XII unremarkable. Cerebellum unremarkable. Motor and sensory unremarkable throughout. Exam nonfocal. Diagnostics: CBC CMP and lipase chest x-ray EKG Therapeutics: Saline lock Impression: #1 medical screening exam #2 chronic intermittent nausea Definitive disposition and diagnosis as appropriate pending reevaluation and review of above. - Related Data Allergies Allergy/AdvReac Type Severity Reaction Status Date / Time iodine Allergy Hives Verified 03/20/19 05:34 Home Meds: Home Meds Folic Acid 1 mg PO DAILY 08/25/17 [History] Methotrexate 2.5 mg PO WEEKLY 08/25/17 [History] Metoprolol Succinate 25 mg PO BID 08/25/17 [History] Rosuvastatin Calcium 5 mg PO ASDIRECTED 08/25/17 [History] Aspirin 81 mg PO DAILY 09/02/17 [History] Ranitidine [Zantac] 150 mg PO BID 09/02/17 [History] Calcium Carbonate [Calcium] 500 mg PO DAILY 05/22/18 [History] Fexofenadine/Pseudoephedrine [Xochilt-D 24 Hour Tablet] 10 mg PO DAILY PRN 05/22 [History] Multivit-Min/Folic Acid/Vit K1 [Multi For Her 50 Plus Softgel] 1 tab DAILY 05/22 [History] LORazepam 0 mg PO DAILY PRN 06/20/18 [History] Ondansetron [Zofran ODT] 4 mg PO Q6H PRN #12 tab.dis 03/17/19 [Rx] Past Medical History - Past Health History Medical/Surgical History: Denies Medical/Surgical History HEENT History: Reports: Other (See Below) Other HEENT History: wears glasses Cardiovascular History: Reports: High Cholesterol, Hypertension Other Cardiovascular History: pt states "i have a tear in my heart" Respiratory History: Reports: Pneumonia, Recurrent Other Respiratory History: pneumonia Gastrointestinal History: Reports: GERD 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 History: Reports: None 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: Musculoskeletal History: Reports: RA Neurological History: Reports: None Psychiatric History: Reports: Anxiety, Depression Endocrine/Metabolic History: Reports: None Hematologic History: Reports: None Immunologic History: Reports: None Oncologic (Cancer) History: Reports: None Dermatologic History: Reports: None - Infectious Disease History Infectious Disease History: Reports: Chicken Pox, Measles, Mononucleosis, Mumps - Past Surgical History Head Surgeries/Procedures: Reports: None HEENT Surgical History: Reports: None Cardiovascular Surgical History: Reports: None Respiratory Surgical History: Reports: None GI Surgical History: Reports: None Female Surgical History: Reports: Hysterectomy, Other (See Below) Other Female Surgeries/Procedures: bladder repair Musculoskeletal Surgical History: Reports: None Social & Family History - Family History Family Medical History: Noncontributory - Tobacco Use Smoking Status *Q: Never Smoker - Caffeine Use Caffeine Use: Reports: None - Recreational Drug Use Recreational Drug Use: No ED ROS GENERAL - Review of Systems Review Of Systems: ROS reveals no pertinent complaints other than HPI. ED EXAM, GENERAL - Physical Exam Exam: See Below (See dictation) Course - Vital Signs Last Recorded V/S: Last Vital Signs Temp 36.8 C 03/20/19 05:32 Pulse 80 03/20/19 05:32 Resp 14 03/20/19 05:32 BP 117/74 03/20/19 05:32 Pulse Ox 96 03/20/19 05:32 - Orders/Labs/Meds Orders: Active Orders 24 hr Category Date Time Status Cardiac Monitoring [RC] . DIRECTED Care 03/20/19 05:44 Active EKG Documentation Completion [RC] STAT Care 03/20/19 05:44 Active BASIC METABOLIC PANEL,BMP [CHEM] Stat Lab 03/20/19 05:50 Received INR,PT,PROTHROMBIN TIME [COAG] Stat Lab 03/20/19 05:50 Received LIPASE [CHEM] Stat Lab 03/20/19 05:50 Received TROPONIN I [CHEM] Stat Lab 03/20/19 05:50 Received Labs: Laboratory Tests 03/20/19 Range/Units 05:50 WBC 5.80 (4.0-11.0) K/uL RBC 4.63 (4.30-5.90) M/uL Hgb 13.3 (12.0-16.0) g/dL Hct 41.6 (36.0-46.0) % MCV 89.8 (80.0-98.0) fL MCH 28.7 (27.0-32.0) pg MCHC 32.0 (31.0-37.0) g/dL RDW Std Deviation 48.3 (28.0-62.0) fl RDW Coeff of Mert 15 (11.0-15.0) % Plt Count 291 (150-400) K/uL MPV 9.60 (7.40-12.00) fL Neut % (Auto) 40.7 L (48.0-80.0) % Lymph % (Auto) 49.0 H (16.0-40.0) % [place] % (Auto) 8.4 (0.0-15.0) % Eos % (Auto) 1.4 (0.0-7.0) % Baso % (Auto) 0.5 (0.0-1.5) % Neut # (Auto) 2.4 (1.4-5.7) K/uL Lymph # (Auto) 2.8 H (0.6-2.4) K/uL [place] # (Auto) 0.5 (0.0-0.8) K/uL Eos # (Auto) 0.1 (0.0-0.7) K/uL Baso # (Auto) 0.0 (0.0-0.1) K/uL Nucleated RBC % 0.0 /100WBC Nucleated RBCs # 0 K/uL Departure - Departure Time of Disposition: 06:18 Disposition: Home, Self-Care 01 Condition: Good Clinical Impression: Encounter for medical screening examination - Discharge Information Referrals: PCP,None [Primary Care Provider] - Additional Instructions: The following information is given to patients seen in the emergency department who are being discharged to home. This information is to outline your options for follow-up care. We provide all patients seen in our emergency department with a follow-up referral. The need for follow-up, as well as the timing and circumstances, are variable depending upon the specifics of your emergency department visit. If you don't have a primary care physician on staff, we will provide you with a referral. We always advise you to contact your personal physician following an emergency department visit to inform them of the circumstance of the visit and for follow-up with them and/or the need for any referrals to a consulting specialist. The emergency department will also refer you to a specialist when appropriate. This referral assures that you have the opportunity for followup care with a specialist. All of these measure are taken in an effort to provide you with optimal care, which includes your followup. Under all circumstances we always encourage you to contact your private physician who remains a resource for coordinating your care. When calling for followup care, please make the office aware that this follow-up is from your recent emergency room visit. If for any reason you are refused follow-up, please contact the [facility] emergency department at and asked to speak to the emergency department charge nurse. Follow-up primary medical doctor as needed as discussed and return as needed as discussed - My Orders Last 24 Hours: My Active Orders 03/20/19 05:44 Cardiac Monitoring [RC] . DIRECTED EKG Documentation Completion [RC] STAT 03/20/19 05:50 BASIC METABOLIC PANEL,BMP [CHEM] Stat INR,PT,PROTHROMBIN TIME [COAG] Stat LIPASE [CHEM] Stat TROPONIN I [CHEM] Stat - Assessment/Plan Last 24 Hours: My Active Orders 03/20/19 05:44 Cardiac Monitoring [RC] . DIRECTED EKG Documentation Completion [RC] STAT 03/20/19 05:50 BASIC METABOLIC PANEL,BMP [CHEM] Stat INR,PT,PROTHROMBIN TIME [COAG] Stat LIPASE [CHEM] Stat TROPONIN I [CHEM] Stat
[2019-03-20 06:28] LABS: CHLORIDE,CL 105 mmol/L (98-107); SODIUM,NA 144 mmol/L (136-145)
== END 2019-03-20 07:02 | disposition home or self-care (01) ==
LOC: MW.ED 05:14
DX: R11.0 Nausea (principal); M06.9 Rheumatoid arthritis, unspecified; Z79.82 Long term (current) use of aspirin; Z79.899 Other long term (current) drug therapy; Z88.8 Allergy status to other drugs, medicaments and biological substances; Z90.710 Acquired absence of both cervix and uterus
CPT/HCPCS: 71045; 71045-26; 80048; 83690; 84484; 85025; 85610; 93005; 99283; 99284-25

== ENCOUNTER 2020-06-25 04:35 | Emergency (ER) | payer MEDICARE, OTHER ==
[2020-06-25] MEDS ORDERED: Sodium Chloride 0.9% 2.5 ML Syringe FLUSH PRN (04:55)
[2020-06-25] MEDS ORDERED: Sodium Chloride 0.9% 10 ML Syringe FLUSH PRN (04:55)
--- NOTE | 2020-06-25 05:13 | EDM.PDOC ---
<Froy Mcdaniel - Last Filed: 06/25/20 08:07> ED HPI GENERAL MEDICAL PROBLEM - General Chief Complaint: Cardiovascular Problem Stated Complaint: HIGH BLOOD PRESSURE Time Seen by Provider: 06/25/20 04:50 - Related Data Allergies Allergy/AdvReac Type Severity Reaction Status Date / Time iodine Allergy Hives Verified 06/25/20 04:54 Home Meds: Home Meds Folic Acid 1 mg PO DAILY 08/25/17 [History] Methotrexate 2.5 mg PO WEEKLY 08/25/17 [History] Rosuvastatin Calcium 5 mg PO ASDIRECTED 08/25/17 [History] Aspirin 81 mg PO DAILY 09/02/17 [History] Calcium Carbonate [Calcium] 500 mg PO DAILY 05/22/18 [History] Multivit-Min/Folic Acid/Vit K1 [Multi For Her 50 Plus Softgel] 1 tab DAILY 05/22/18 [History] Lactobacillus Combination No.4 [Probiotic] 1 tab PO DAILY 06/25/20 [History] Magnesium Amino Acid Chelate [Magnesium] 1 DAILY 06/25/20 [History] Metoprolol Succinate [Toprol XL 50mg] 1 tab PO DAILY 06/25/20 [History] Course - Vital Signs Text/Narrative:: Patient CT aortogram was negative for new dissection or other acute findings. Second troponin test was negative. I reassessed the patient at 8:05 AM she is feeling well would like to go home lab studies and imaging do not indicate an acute process she will be discharged home follow-up with her primary care doctor. Departure - Departure Time of Disposition: 08:08 Disposition: Home, Self-Care 01 Condition: Good Clinical Impression: Chest pain, Hypertension Instructions: Nonspecific Chest Pain, Adult, Preventing Hypertension Referrals: Adrian Pierre MD [Primary Care Provider] - Forms: ED Department Discharge Additional Instructions: The following information is given to patients seen in the emergency department who are being discharged to home. This information is to outline your options for follow-up care. We provide all patients seen in our emergency department with a follow-up referral. The need for follow-up, as well as the timing and circumstances, are variable depending upon the specifics of your emergency department visit. If you don't have a primary care physician on staff, we will provide you with a referral. We always advise you to contact your personal physician following an emergency department visit to inform them of the circumstance of the visit and for follow-up with them and/or the need for any referrals to a consulting specialist. The emergency department will also refer you to a specialist when appropriate. This referral assures that you have the opportunity for follow-up care with a specialist. All of these measure are taken in an effort to provide you with optimal care, which includes your follow-up. Under all circumstances we always encourage you to contact your private physician who remains a resource for coordinating your care. When calling for follow-up care, please make the office aware that this follow-up is from your recent emergency room visit. If for any reason you are refused follow-up, please contact the [facility] Emergency Department at and asked to speak to the emergency department charge nurse. <Miriam Jones - Last Filed: 06/26/20 03:25> ED HPI GENERAL MEDICAL PROBLEM - General Source of Information: Reports: Patient - History of Present Illness INITIAL COMMENTS - FREE TEXT/NARRATIVE: History of present illness: 69-year-old female presenting with elevated blood pressure for the last 24 hours feeling slightly anxious. She reports that she feels anxious because of the elevated blood pressure, denies chest pain or discomfort or any other symptoms other than that she does have some heartburn, which she reports is very common for her in the evenings. Apparently her blood pressure levels at home were in the 170s to 180s, and previously had been very well controlled in the 100s to 115 range on metoprolol ER 50 mg once daily. Yesterday she took her metoprolol at 7:30 PM as usual but noted that her blood pressure did not improve and so she took a second dose and another half pill trying to help bring down her blood pressure, however if her it is still in the 160s now. No dizziness or headache, no nausea or vomiting, no back pain neck pain or any other symptoms. Review of systems: As per history of present illness and below otherwise all systems reviewed and negative. Past medical history: As per history of present illness and as reviewed below otherwise noncontributory. Hypertension, rheumatoid arthritis, unrepaired abdominal aortic dissection Surgical history: As per history of present illness and as reviewed below otherwise noncontributory. Bladder lift Social history: No reported history of drug or alcohol abuse. No tobacco Family history: As per history of present illness and as reviewed below otherwise noncontributory. Physical exam: GEN: no acute distress, well appearing HEENT: Atraumatic, normocephalic, mucous membranes moist, Neck: supple. Lungs: No respiratory distress. Heart: RRR Abdomen: Soft, nondistended, nontender. No pulsatile mass Back: nontender Extremities: Atraumatic. Neurovascularly intact. Neuro: Awake, alert, oriented. Neuro Exam nonfocal. Skin: warm, dry, no lesions Diagnostics: [] Therapeutics: [] MDM: Impression: [] Plan: [] Definitive disposition and diagnosis as appropriate pending reevaluation and review of above. 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: Musculoskeletal History: Reports: RA Neurological History: Reports: None Psychiatric History: Reports: Anxiety, Depression Endocrine/Metabolic History: Reports: None Hematologic History: Reports: None Immunologic History: Reports: None Oncologic (Cancer) History: Reports: None Dermatologic History: Reports: None - Infectious Disease History Infectious Disease History: Reports: Chicken Pox, Measles, Mononucleosis, Mumps - Past Surgical History Head Surgeries/Procedures: Reports: None HEENT Surgical History: Reports: None Cardiovascular Surgical History: Reports: None Respiratory Surgical History: Reports: None GI Surgical History: Reports: None Female Surgical History: Reports: Hysterectomy, Other (See Below) Other Female Surgeries/Procedures: bladder repair Musculoskeletal Surgical History: Reports: None Social & Family History - Family History Family Medical History: Noncontributory - Tobacco Use Smoking Status *Q: Never Smoker - Caffeine Use Caffeine Use: Reports: None - Recreational Drug Use Recreational Drug Use: No ED ROS GENERAL - Review of Systems Review Of Systems: See Below (See HPI) ED EXAM, GENERAL - Physical Exam Exam: See Below (See HPI) EKG INTERPRETATION EKG Interpretation Comments: EKG performed at 4:50 AM, sinus rhythm, rate 62, QTc 427, no acute ischemia, no STEMI. Interpreted by me. Course - Vital Signs Text/Narrative:: Largely asymptomatic hypertension. Mild heartburn-like sensation which patient reports is chronic and unchanged and for which she had previously taken Zantac or Prilosec. Blood pressure in the 160s on arrival here after double dose of her metoprolol yesterday evening. Prior history of abdominal aortic dissection? (" Tear in my aorta of the abdomen") which she last saw Dr. Vega for and last had CT and ultrasound 2 years ago. Has not had any imaging since then. Will check CTA chest/abdomen/pelvis today to evaluate given change in blood pressure and heartburn-like symptoms. EKG with no acute ischemia. Otherwise low risk for coronary artery disease/ACS. The patient had an iodine allergy listed in her chart, she is uncertain what her reaction to iodine was or in what form that she received iodine and reacted to it, however she does report she has had CT scans in the past, she had a CT angio in 2018 which is what diagnosed the infrarenal abdominal aortic dissection, and apparently received steroid before that without any allergic symptoms arising. Therefore she will receive Solu-Medrol and Benadryl here prior to CT scan. CT scan has not yet been completed at time of signout. Patient signed out to Dr. Mcdaniel, will follow up CT scan results. Last Recorded V/S: Last Vital Signs Temp 96.8 F L 06/25/20 04:44 Pulse 60 06/25/20 08:12 Resp 17 06/25/20 08:12 BP 121/67 06/25/20 08:12 Pulse Ox 94 L 06/25/20 08:12 - Orders/Labs/Meds Orders: Active Orders 24 hr Category Date Time Status Saline Lock Insert [OM.PC] Stat Oth 06/25/20 04:55 Ordered Labs: Laboratory Tests 06/25/20 06/25/20 06/25/20 Range/Units 05:00 05:00 07:01 WBC 5.36 (4.0-11.0) K/uL RBC 4.56 (4.30-5.90) M/uL Hgb 13.9 (12.0-16.0) g/dL Hct 42.4 (36.0-46.0) % MCV 93.0 (80.0-98.0) fL MCH 30.5 (27.0-32.0) pg MCHC 32.8 (31.0-37.0) g/dL RDW Std Deviation 49.5 (28.0-62.0) fl RDW Coeff of Mert 15 (11.0-15.0) % Plt Count 301 (150-400) K/uL MPV 8.90 (7.40-12.00) fL Neut % (Auto) 48.3 (48.0-80.0) % Lymph % (Auto) 40.3 H (16.0-40.0) % [place] % (Auto) 9.5 (0.0-15.0) % Eos % (Auto) 1.5 (0.0-7.0) % Baso % (Auto) 0.4 (0.0-1.5) % Neut # (Auto) 2.6 (1.4-5.7) K/uL Lymph # (Auto) 2.2 (0.6-2.4) K/uL [place] # (Auto) 0.5 (0.0-0.8) K/uL Eos # (Auto) 0.1 (0.0-0.7) K/uL Baso # (Auto) 0.0 (0.0-0.1) K/uL Nucleated RBC % 0.0 /100WBC Nucleated RBCs # 0 K/uL Sodium 138 (136-145) mmol/L Potassium 3.8 (3.5-5.1) mmol/L Chloride 104 (98-107) mmol/L Carbon Dioxide 25.3 (21.0-32.0) mmol/L BUN 13 (7.0-18.0) mg/dL Creatinine 0.9 (0.6-1.0) mg/dL Est Cr Clr Drug Dosing 48.11 mL/min Estimated GFR (MDRD) > 60.0 ml/min Glucose 110 H (74-106) mg/dL Calcium 10.1 (8.5-10.1) mg/dL Total Bilirubin 0.5 (0.2-1.0) mg/dL AST 24 (15-37) IU/L ALT 32 (14-63) IU/L Alkaline Phosphatase 83 (46-116) U/L Troponin I < 0.050 < 0.050 (0.000-0.056) ng/mL Total Protein 7.1 (6.4-8.2) g/dL Albumin 4.0 (3.4-5.0) g/dL Globulin 3.1 (2.6-4.0) g/dL Albumin/Globulin Ratio 1.3 (0.9-1.6) Meds: Medications Discontinued Medications Generic Name Dose Route Start Last Admin Trade Name Freq PRN Reason Stop Dose Admin Diphenhydramine HCl 25 mg 06/25/20 05:38 06/25/20 05:55 Benadryl IVPUSH 06/25/20 05:39 25 mg ONETIME ONE Administration Iopamidol 100 ml 06/25/20 06:31 06/25/20 06:32 Isovue Multipack-370 (76%) IVPUSH 06/25/20 06:32 100 ml ONETIME ONE Administration Methylprednisolone Sodium Succinate 125 mg 06/25/20 05:38 06/25/20 05:55 Solu-Medrol IVPUSH 06/25/20 05:39 125 mg ONETIME ONE Administration Sodium Chloride 10 ml 06/25/20 04:55 Saline Flush FLUSH ASDIRECTED PRN Keep Vein Open Sodium Chloride 2.5 ml 06/25/20 04:55 Saline Flush FLUSH ASDIRECTED PRN Keep Vein Open Sepsis Event Note (ED) - Evaluation Sepsis Screening Result: No Definite Risk - My Orders Last 24 Hours: My Active Orders 06/25/20 04:55 Saline Lock Insert [OM.PC] Stat - Assessment/Plan Last 24 Hours: My Active Orders 06/25/20 04:55 Saline Lock Insert [OM.PC] Stat
[2020-06-25 05:28] LABS: BLOOD UREA NITROGEN,BUN 13 mg/dL (7.0-18.0); CARBON DIOXIDE,CO2 25.3 mmol/L (21.0-32.0); CHLORIDE,CL 104 mmol/L (98-107); GLUCOSE RANDOM 110 mg/dL (74-106); POTASSIUM,K 3.8 mmol/L (3.5-5.1); SODIUM,NA 138 mmol/L (136-145)
[2020-06-25] MEDS ORDERED: methylPREDNISolone Sodium Succinate 125 MG/2 ML SDV IVPUSH ONE (05:38)
[2020-06-25] MEDS ORDERED: diphenhydrAMINE 50 MG/ML SDV IVPUSH ONE (05:38)
[2020-06-25] MEDS ORDERED: Iopamidol 755 MG/ML 200 ML Multipack Bottle IVPUSH ONE (06:31)
--- NOTE | 2020-06-25 08:01 | CT ---
The chest CT report is included with today`s abdomen/pelvis CT report. Please note that all CT scans at this facility use dose modulation, iterative reconstruction, and/or weight-based dosing when appropriate to reduce radiation dose to as low as reasonably achievable. Dictated by Tang Farrell MD @ Jun 25 2020 7:47AM Signed by Dr. Tang Farrell @ Jun 25 2020 8:00AM
--- NOTE | 2020-06-25 08:01 | CT ---
INDICATION: New/increased hypertension. History of aortic dissection in 2018. Reevaluate dissection. TECHNIQUE: Volumetric helical scanning of the chest was performed initially without contrast material. Scanning of chest, abdomen and pelvis was then performed with 100 cc of Isovue 370 contrast material IV, timing optimized for aortic opacification. Coronal and sagittal reconstructions were obtained. COMPARISON: Chest/abdomen/pelvis CT of 05/13/2018. FINDINGS: The aorta is well opacified. An unchanged dissection of the abdominal aorta is demonstrated, extending from the mid abdominal aorta to the bifurcation. Flow persists in the false lumen. No new dissection is evident. Tortuosity of the thoracic aorta is again demonstrated. Scattered atherosclerotic plaques are noted. The heart is mildly enlarged and is clearly increased in size since the previous exam. Calcified coronary arterial plaque is demonstrated. Mild fibrotic changes are demonstrated in the lower lungs. No acute infiltrate is evident. No significant airway abnormality or pleural effusion is noted. No axillary, mediastinal or hilar adenopathy is apparent. A grossly unchanged 1 cm right thyroid lobe nodule is noted. A large hiatal hernia is noted and is increased from the previous exam. The liver is normal in size, shape and attenuation. No bile duct dilation is evident. The spleen is within normal limits. The adrenal glands are unremarkable. The pancreas is within normal limits. The kidneys are unremarkable except for a new 2 cm left renal cyst. No lymphadenopathy is evident. No free fluid is evident. Postop changes of total abdominal hysterectomy are again demonstrated. IMPRESSION: 1. Unchanged, chronic lower abdominal aortic dissection. No acute dissection evident. 2. Mild cardiomegaly with clear increase in heart size since the previous examination. 3. Coronary artery disease. 4. Large hiatal hernia, increased from the previous exam. 5. Grossly unchanged 1 cm right thyroid nodule. 6. Post total abdominal hysterectomy. 7. New 2 cm left renal cyst. Please note that all CT scans at this facility use dose modulation, iterative reconstruction, and/or weight-based dosing when appropriate to reduce radiation dose to as low as reasonably achievable. Dictated by Tang Farrell MD @ Jun 25 2020 7:47AM Signed by Dr. Tang Farrell @ Jun 25 2020 8:00AM
== END 2020-06-25 08:19 | disposition home or self-care (01) ==
LOC: MW.ED 04:35
DX: I10 Essential (primary) hypertension (principal); R07.9 Chest pain, unspecified; M06.9 Rheumatoid arthritis, unspecified; Z88.8 Allergy status to other drugs, medicaments and biological substances; Z79.82 Long term (current) use of aspirin; Z79.899 Other long term (current) drug therapy
CPT/HCPCS: 36415; 71275; 74174; 80053; 84484; 85025; 93005; 96374; 96375; 99284; J1200; J2930; Q9967; 93010

== ENCOUNTER 2021-01-16 04:03 | Emergency (ER) | payer MEDICARE ==
--- NOTE | 2021-01-16 04:09 | EDM.PDOC ---
ED HPI GENERAL MEDICAL PROBLEM - General Stated Complaint: HIGH BLOOD PRESSURE Time Seen by Provider: 01/16/21 04:04 Source of Information: Reports: Patient History Limitations: Reports: No Limitations - History of Present Illness INITIAL COMMENTS - FREE TEXT/NARRATIVE: 70-year-old female past medical history hypertension, anxiety, history of aortic dissection presents for high blood pressure. Patient notes that she does get very anxious when her blood pressure is high because of her history of aortic dissection. She notes that she takes her blood pressure several times throughout the day. She noticed that yesterday it was elevated. She denies any other symptoms. Denies chest pain, nausea, vomiting, abdominal pain. She states that she takes metoprolol and clonidine and is compliant with her medications. She did not have any symptoms that woke her from sleep but rather woke up and decided to check her blood pressure and noted that it was high prompting her to come to the emergency department. - Related Data Allergies Allergy/AdvReac Type Severity Reaction Status Date / Time iodine Allergy Hives Verified 01/16/21 04:19 Home Meds: Home Meds Folic Acid 1 mg PO DAILY 08/25/17 [History] Methotrexate 2.5 mg PO WEEKLY 08/25/17 [History] Rosuvastatin Calcium 5 mg PO ASDIRECTED 08/25/17 [History] Aspirin 81 mg PO DAILY 09/02/17 [History] Calcium Carbonate [Calcium] 500 mg PO DAILY 05/22/18 [History] Multivit-Min/Folic Acid/Vit K1 [Multi For Her 50 Plus Softgel] 1 tab DAILY 05/22/18 [History] Lactobacillus Combination No.4 [Probiotic] 1 tab PO DAILY 06/25/20 [History] Magnesium Amino Acid Chelate [Magnesium] 1 DAILY 06/25/20 [History] Metoprolol Succinate [Toprol XL 50mg] 1 tab PO DAILY 06/25/20 [History] Past Medical History - Past Health History Medical/Surgical History: Denies Medical/Surgical History HEENT History: Reports: Other (See Below) Other HEENT History: wears glasses Cardiovascular History: Reports: High Cholesterol, Hypertension Other Cardiovascular History: pt states "i have a tear in my heart" Respiratory History: Reports: Pneumonia, Recurrent Other Respiratory History: pneumonia Gastrointestinal History: Reports: GERD 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 History: Reports: None 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: Musculoskeletal History: Reports: RA Neurological History: Reports: None Psychiatric History: Reports: Anxiety, Depression Endocrine/Metabolic History: Reports: None Hematologic History: Reports: None Immunologic History: Reports: None Oncologic (Cancer) History: Reports: None Dermatologic History: Reports: None - Infectious Disease History Infectious Disease History: Reports: Chicken Pox, Measles, Mononucleosis, Mumps - Past Surgical History Head Surgeries/Procedures: Reports: None HEENT Surgical History: Reports: None Cardiovascular Surgical History: Reports: None Respiratory Surgical History: Reports: None GI Surgical History: Reports: None Female Surgical History: Reports: Hysterectomy, Other (See Below) Other Female Surgeries/Procedures: bladder repair Musculoskeletal Surgical History: Reports: None Social & Family History - Family History Family Medical History: No Pertinent Family History - Caffeine Use Caffeine Use: Reports: None ED ROS GENERAL - Review of Systems Review Of Systems: Comprehensive ROS is negative, except as noted in HPI. ED EXAM, GENERAL - Physical Exam Exam: See Below Exam Limited By: No Limitations General Appearance: Alert, WD/WN, No Apparent Distress Throat/Mouth: Normal Voice, No Airway Compromise Head: Atraumatic, Normocephalic Neck: Normal Inspection Respiratory/Chest: No Respiratory Distress, Lungs Clear, Normal Breath Sounds, No Accessory Muscle Use Cardiovascular: Normal Peripheral Pulses, Regular Rate, Rhythm GI/Abdominal: Soft, Non-Tender Extremities: Normal Inspection Neurological: Alert Psychiatric: Normal Affect, Normal Mood Skin Exam: Warm, Dry, Intact, Normal Color #1 Interpretation EKG Date: 01/16/21 Time: 04:11 Rhythm: NSR Rate (Beats/Min): 73 [place]: LAD-Left [place] Deviation P-Wave: Present QRS: Normal ST-T: Normal QT: Normal [place]/PQ Interval: 192 EKG Interpretation Comments: no ischemic changes, wandering baseline in leads II, III, aVF obscure interpretation Course - Vital Signs Last Recorded V/S: Last Vital Signs Temp 98.3 F 01/16/21 04:10 Pulse 68 01/16/21 04:45 Resp 18 01/16/21 04:45 BP 141/67 H 01/16/21 04:45 Pulse Ox 97 01/16/21 04:45 - Orders/Labs/Meds Orders: Active Orders 24 hr Category Date Time Status EKG Documentation Completion [RC] STAT Care 01/16/21 04:15 Active Chest 1V Frontal [CR] Stat Exams 01/16/21 04:26 Taken Labs: Laboratory Tests 01/16/21 01/16/21 Range/Units 04:19 04:19 WBC 5.46 (4.0-11.0) K/uL RBC 4.74 (4.30-5.90) M/uL Hgb 14.5 (12.0-16.0) g/dL Hct 44.5 (36.0-46.0) % MCV 93.9 (80.0-98.0) fL MCH 30.6 (27.0-32.0) pg MCHC 32.6 (31.0-37.0) g/dL RDW Std Deviation 51.6 (28.0-62.0) fl RDW Coeff of Mert 15 (11.0-15.0) % Plt Count 313 (150-400) K/uL MPV 9.40 (7.40-12.00) fL Neut % (Auto) 51.3 (48.0-80.0) % Lymph % (Auto) 37.9 (16.0-40.0) % [place] % (Auto) 8.8 (0.0-15.0) % Eos % (Auto) 1.5 (0.0-7.0) % Baso % (Auto) 0.5 (0.0-1.5) % Neut # (Auto) 2.8 (1.4-5.7) K/uL Lymph # (Auto) 2.1 (0.6-2.4) K/uL [place] # (Auto) 0.5 (0.0-0.8) K/uL Eos # (Auto) 0.1 (0.0-0.7) K/uL Baso # (Auto) 0.0 (0.0-0.1) K/uL Nucleated RBC % 0.0 /100WBC Nucleated RBCs # 0 K/uL Sodium 142 (136-145) mmol/L Potassium 3.8 (3.5-5.1) mmol/L Chloride 105 (98-107) mmol/L Carbon Dioxide 26.4 (21.0-32.0) mmol/L BUN 16 (7.0-18.0) mg/dL Creatinine 0.8 (0.6-1.0) mg/dL Est Cr Clr Drug Dosing TNP Estimated GFR (MDRD) > 60.0 ml/min Glucose 110 H (74-106) mg/dL Calcium 9.9 (8.5-10.1) mg/dL Total Bilirubin 0.5 (0.2-1.0) mg/dL AST 28 (15-37) IU/L ALT 51 (14-63) IU/L Alkaline Phosphatase 90 (46-116) U/L Troponin I < 0.050 (0.000-0.056) ng/mL Total Protein 7.5 (6.4-8.2) g/dL Albumin 3.9 (3.4-5.0) g/dL Globulin 3.6 (2.6-4.0) g/dL Albumin/Globulin Ratio 1.1 (0.9-1.6) - Re-Assessments/Exams Free Text/Narrative Re-Assessment/Exam: 01/16/21 04:27 We will get basic labs to check renal function. Will get chest x-ray. EKG is nonischemic. We will follow up results and anticipate discharge. 01/16/21 04:51 Patient's blood pressure has substantially improved without treatment in the ER. Likely related to her taking metoprolol and clonidine prior to arrival. 01/16/21 04:52 Patient's labs are unremarkable. Will discharge with primary care physician follow-up Departure - Departure Time of Disposition: 04:52 Disposition: Home, Self-Care 01 Condition: Good Clinical Impression: Hypertension Qualifiers: Hypertension type: unspecified Qualified Code(s): I10 - Essential (primary) hypertension - Discharge Information Instructions: Hypertension, Adult, [id number] Referrals: PCP,None [Ordering Only Provider] - Additional Instructions: Your blood pressure today was elevated. Continue to take your medications as prescribed. Keep a log of your blood pressures and discuss this with your primary care physician. They may want to make changes to your medications or add additional medications if your blood pressure is poorly controlled on your current regimen. If you experience chest pain, shortness of breath, abdominal pain return to the emergency department for reassessment. The following information is given to patients seen in the emergency department who are being discharged to home. This information is to outline your options for follow-up care. We provide all patients seen in our emergency department with a follow-up referral. The need for follow-up, as well as the timing and circumstances, are variable depending upon the specifics of your emergency department visit. If you don't have a primary care physician on staff, we will provide you with a referral. We always advise you to contact your personal physician following an emergency department visit to inform them of the circumstance of the visit and for follow-up with them and/or the need for any referrals to a consulting specialist. The emergency department will also refer you to a specialist when appropriate. This referral assures that you have the opportunity for follow-up care with a specialist. All of these measure are taken in an effort to provide you with optimal care, which includes your follow-up. Under all circumstances we always encourage you to contact your private physician who remains a resource for coordinating your care. When calling for follow-up care, please make the office aware that this follow-up is from your recent emergency room visit. If for any reason you are refused follow-up, please contact the [facility] Emergency Department at and asked to speak to the emergency department charge nurse. Please follow up with your primary care physician. If you do not have a primary care physician, see below: [facility] [address] [place] [id number] [facility] [address] [place] [id number] [facility] [address] [place] [id number] Sepsis Event Note (ED) - Focused Exam Vital Signs: Vital Signs Temp Pulse Resp BP Pulse Ox 01/16/21 04:45 68 18 141/67 H 97 01/16/21 04:10 98.3 F 73 18 180/95 H 98 - My Orders Last 24 Hours: My Active Orders 01/16/21 04:15 EKG Documentation Completion [RC] STAT 01/16/21 04:26 Chest 1V Frontal [CR] Stat - Assessment/Plan Last 24 Hours: My Active Orders 01/16/21 04:15 EKG Documentation Completion [RC] STAT 01/16/21 04:26 Chest 1V Frontal [CR] Stat
[2021-01-16 04:48] LABS: BLOOD UREA NITROGEN,BUN 16 mg/dL (7.0-18.0); CARBON DIOXIDE,CO2 26.4 mmol/L (21.0-32.0); CHLORIDE,CL 105 mmol/L (98-107); GLUCOSE RANDOM 110 mg/dL (74-106); POTASSIUM,K 3.8 mmol/L (3.5-5.1); SODIUM,NA 142 mmol/L (136-145)
--- NOTE | 2021-01-16 05:15 | CR ---
Indication: Hypertension. Anxiety Technique: Chest 1 view Comparison: 03/20/2019 Findings/Impression: Cardiovascular and mediastinum: A stable cardiomediastinal silhouette. An ectatic, unfolded and calcified aorta again seen. Lungs and pleural space: An ovoid retrocardiac density again seen suggestive of a hiatal hernia. No consolidation or pleural effusions. No pneumothorax seen. Bones and soft tissues: Degenerative changes in the glenohumeral joints. Dictated by Danny Willson MD @ Jan 16 2021 5:05AM Signed by Dr. Danny Willson @ Jan 16 2021 5:12AM
== END 2021-01-16 05:00 | disposition home or self-care (01) ==
LOC: MW.ED 04:03
DX: I10 Essential (primary) hypertension (principal); E78.00 Pure hypercholesterolemia, unspecified; M06.9 Rheumatoid arthritis, unspecified; Z88.8 Allergy status to other drugs, medicaments and biological substances; Z79.82 Long term (current) use of aspirin; Z79.899 Other long term (current) drug therapy
CPT/HCPCS: 36415; 71045; 71045-26; 80053; 84484; 85025; 93005; 99284-25

== ENCOUNTER 2021-05-22 01:00 | Emergency (ER) | payer MEDICARE ==
[2021-05-22] MEDS ORDERED: guaiFENesin 600 MG Tab.ER PO ONE (01:18)
[2021-05-22] MEDS ORDERED: predniSONE 10 MG Tab PO ONE (01:18)
--- NOTE | 2021-05-22 01:22 | EDM.PDOC ---
ED HPI GENERAL MEDICAL PROBLEM - General Chief Complaint: Respiratory Problem Stated Complaint: CHRONIC COUGH Time Seen by Provider: 05/22/21 01:20 - History of Present Illness INITIAL COMMENTS - FREE TEXT/NARRATIVE: HISTORY AND PHYSICAL: History of present illness: This is a 70-year-old female who presents ER today secondary to cough for approximately 2 to 3 weeks. Patient reports that she has usually nonproductive cough but occasionally has some white sputum that comes with it. Patient reports nasal drainage and discharge. Patient reports that she has postnasal drip. Patient denies any recent fevers, shakes, chills, nausea, vomiting, diarrhea, dysuria, frequency, urgency. Patient has any chest pain or shortness of breath. Patient has any abdominal pain or discomfort. Patient reports that she has been taking Benadryl at home and has been able to sleep secondary to persistent episodes of coughing. Review of systems: As per history of present illness and below otherwise all systems reviewed and negative. Past medical history: As per history of present illness and as reviewed below otherwise noncontributory. Surgical history: As per history of present illness and as reviewed below otherwise noncontr ibutory. Social history: No reported history of drug abuse. Family history: As per history of present illness and as reviewed below otherwise noncontributory. Physical exam: This patient was seen and evaluated during the 2019 SARS-CoV-2 novel coronavirus pandemic period. Community viral transmission is ongoing at time of this encounter and the emergency department is operating under pandemic response procedures. Constitutional: Patient is oriented to person, place, and time. Appears well- developed and well-nourished. No distress. HEENT: Moist mucous membranes Head: Normocephalic and atraumatic Eyes: Right eye exhibits no discharge. Left eye exhibits no discharge. No scleral icterus Neck: Normal range of motion. No tracheal deviation present. Cardiovascular: Normal rate and regular rhythm. Pulmonary: Effort normal, no respiratory distress. Abdominal: No distention Musculoskeletal: Normal range of motion Neurologic: Alert and oriented to person, place and time. Skin: [place], warm and dry. Psychiatric: Normal mood and affect. Behavior is normal. Judgment and thought content normal. Nursing note and vital signs have been reviewed Lungs are clear without any wheezing rales or rhonchi. No tachypnea. Patient is able to speak in full sentences and appears to be in no respiratory discomfort. Patient oropharynx is clear. Patient has no lymphadenopathy. Diagnostics: [] Therapeutics: [] Assessment and plan: 30-year-old female who presents ER today secondary to persistent cough for 2 to 3 weeks. Patient symptoms are most consistent with allergic rhinitis. Patient will be started on Mucinex as well as prednisone and has been instructed to take Benadryl when she gets home to help her get some rest. Patient was instructed to follow-up with her primary care physician in the next 1 to 2 days for reevaluation. Reassessment at the time of disposition demonstrates that the patient is in no acute distress. The patient has remained stable throughout the entire ED visit and is without objective evidence for acute process requiring urgent intervention or hospitalization. The patient is stable for discharge, counseling is provided as documented above, discussed symptomatic treatment and specific conditions for return. I have spoken with the patient/caregiver and discussed todays findings, in addition to providing specific details for the plan of care. Questions are answered and there is agreement with the plan. Definitive disposition and diagnosis as appropriate pending reevaluation and review of above. - Related Data Allergies Allergy/AdvReac Type Severity Reaction Status Date / Time iodine Allergy Hives Verified 05/22/21 01:12 Home Meds: Home Meds Folic Acid 1 mg PO DAILY 08/25/17 [History] Methotrexate 2.5 mg PO WEEKLY 08/25/17 [History] Rosuvastatin Calcium 5 mg PO DAILY 08/25/17 [History] Aspirin 81 mg PO DAILY 09/02/17 [History] Calcium Carbonate [Calcium] 500 mg PO DAILY 05/22/18 [History] Multivit-Min/Folic Acid/Vit K1 [Multi For Her 50 Plus Softgel] 1 tab DAILY 05/22/18 [History] Lactobacillus Combination No.4 [Probiotic] 1 tab PO DAILY 06/25/20 [History] Metoprolol Succinate 100 mg PO DAILY 05/22/21 [History] predniSONE [Prednisone] 50 mg PO DAILY #5 tablet 05/22/21 [Rx] Past Medical History - Past Health History Medical/Surgical History: Denies Medical/Surgical History HEENT History: Reports: Other (See Below) Other HEENT History: wears glasses Cardiovascular History: Reports: High Cholesterol, Hypertension Other Cardiovascular History: pt states "i have a tear in my heart" Respiratory History: Reports: Pneumonia, Recurrent Other Respiratory History: pneumonia Gastrointestinal History: Reports: GERD 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 History: Reports: None 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: Musculoskeletal History: Reports: RA Neurological History: Reports: None Psychiatric History: Reports: Anxiety, Depression Endocrine/Metabolic History: Reports: None Insulin Pump Model and Buncher Operator: None Hematologic History: Reports: None Immunologic History: Reports: None Oncologic (Cancer) History: Reports: None Dermatologic History: Reports: None - Infectious Disease History Infectious Disease History: Reports: Chicken Pox, Measles, Mononucleosis, Mumps - Past Surgical History Head Surgeries/Procedures: Reports: None HEENT Surgical History: Reports: None Cardiovascular Surgical History: Reports: None Respiratory Surgical History: Reports: None GI Surgical History: Reports: None Female Surgical History: Reports: Hysterectomy, Other (See Below) Other Female Surgeries/Procedures: bladder repair Musculoskeletal Surgical History: Reports: None Social & Family History - Family History Family Medical History: No Pertinent Family History - Tobacco Use Tobacco Use Status *Q: Never Tobacco User - Caffeine Use Caffeine Use: Reports: None - Recreational Drug Use Recreational Drug Use: No ED ROS GENERAL - Review of Systems Review Of Systems: See Below ED EXAM, GENERAL - Physical Exam Exam: See Below Course - Vital Signs Last Recorded V/S: Last Vital Signs Temp 96.4 F L 05/22/21 01:11 Pulse 88 05/22/21 01:11 Resp 20 05/22/21 01:11 BP 153/99 H 05/22/21 01:11 Pulse Ox 97 05/22/21 01:11 - Orders/Labs/Meds Meds: Medications Discontinued Medications Generic Name Dose Route Start Last Admin Trade Name Freq PRN Reason Stop Dose Admin Guaifenesin 600 mg 05/22/21 01:18 05/22/21 01:29 Guaifenesin 600 Mg Tab.Er PO 05/22/21 01:19 600 mg ONETIME ONE Administration Prednisone 40 mg 05/22/21 01:18 05/22/21 01:29 Prednisone 10 Mg Tab PO 05/22/21 01:19 40 mg ONETIME ONE Administration Departure - Departure Time of Disposition: 01:20 Disposition: Home, Self-Care 01 Condition: Good Clinical Impression: Allergic sinusitis, Cough Allergic rhinitis Qualifiers: Allergic rhinitis trigger: pollen Allergic rhinitis seasonality: seasonal Qualified Code(s): J30.1 - Allergic rhinitis due to pollen - Discharge Information Prescriptions: predniSONE [Prednisone] 50 mg PO DAILY #5 tablet Instructions: Cough, Adult, [id number], Allergic Rhinitis, Adult, [id number] Referrals: Adrian Pierre MD [Primary Care Provider] - Forms: ED Department Discharge Additional Instructions: Your seen and evaluated in the ER today secondary to persistent cough for 2 to 3 weeks. Your symptoms appear to be most consistent with allergic rhinitis/seasonal allergies. I am recommending that you take a course of prednisone and Mucinex to help you with your symptoms. You will be given a prescription for prednisone here in the ER and you can buy Mucinex 600 mg twice a day which is [id number]. I am also recommending that you take a dose of Benadryl at night to help you get some sleep and help dry drainage and secretions that you are experiencing. Please make an appointment see your family doctor in the next 2 to 3 days. The following information is given to patients seen in the emergency department who are being discharged to home. This information is to outline your options for follow-up care. We provide all patients seen in our emergency department with a follow-up referral. The need for follow-up, as well as the timing and circumstances, are variable depending upon the specifics of your emergency department visit. If you don't have a primary care physician on staff, we will provide you with a referral. We always advise you to contact your personal physician following an emergency department visit to inform them of the circumstance of the visit and for follow-up with them and/or the need for any referrals to a consulting specialist. The emergency department will also refer you to a specialist when appropriate. This referral assures that you have the opportunity for follow-up care with a specialist. All of these measure are taken in an effort to provide you with optimal care, which includes your follow-up. Under all circumstances we always encourage you to contact your private physician who remains a resource for coordinating your care. When calling for follow-up care, please make the office aware that this follow-up is from your recent emergency room visit. If for any reason you are refused follow-up, please contact the [facility] Emergency Department at and asked to speak to the emergency department charge nurse. [facility] - Primary [facility] [address] [place] [id number] [facility] [address] [place] [id number] Sepsis Event Note (ED) - Evaluation Sepsis Screening Result: No Definite Risk
== END 2021-05-22 01:29 | disposition home or self-care (01) ==
LOC: MW.ED 01:00
DX: J30.1 Allergic rhinitis due to pollen (principal); E78.00 Pure hypercholesterolemia, unspecified; I10 Essential (primary) hypertension; Z79.82 Long term (current) use of aspirin; Z79.899 Other long term (current) drug therapy; Z88.8 Allergy status to other drugs, medicaments and biological substances
CPT/HCPCS: 99283; A9270

== ENCOUNTER 2023-06-19 01:10 | Emergency (ER) | payer MEDICARE, OTHER ==
[2023-06-19] MEDS ORDERED: Lisinopril 10 MG Tab PO ONE (01:31)
[2023-06-19 01:52] LABS: EOSINOPHILS ABSOLUTE AUTO 0.1 K/uL (0.0-0.7); EOSINOPHILS PERCENT AUTO 1.6 % (0.0-7.0); HEMATOCRIT 40.4 % (36.0-46.0); HEMOGLOBIN 13.3 g/dL (12.0-16.0); LYMPHOCYTES ABSOLUTE AUTO 1.5 K/uL (0.6-2.4); LYMPHOCYTES PERCENT AUTO 39.3 % (16.0-40.0); MEAN CORPUSCULAR HEMOGLOBIN 30.6 pg (27.0-32.0); MEAN CORPUSCULAR HGB CONC 32.9 g/dL (31.0-37.0); MEAN CORPUSCULAR VOLUME 92.9 fL (80.0-98.0); MONOCYTES ABSOLUTE AUTO 0.6 K/uL (0.0-0.8); MONOCYTES PERCENT AUTO 15.2 % (0.0-15.0); NEUTROPHILS ABSOLUTE AUTO 1.7 K/uL (1.4-5.7); NEUTROPHILS PERCENT AUTO 42.9 % (48.0-80.0); NRBC ABSOLUTE 0 K/uL; PLATELET COUNT,PLT 299 K/uL (150-400); RED BLOOD CELL COUNT 4.35 M/uL (4.30-5.90); WHITE BLOOD CELL COUNT,WBC 3.87 K/uL (4.0-11.0)
[2023-06-19 02:18] LABS: A/G RATIO 1.1 (0.9-1.6); ALBUMIN 3.6 g/dL (3.4-5.0); BILIRUBIN TOTAL 0.7 mg/dL (0.2-1.0); CALCIUM 9.4 mg/dL (8.5-10.1); CARBON DIOXIDE,CO2 29.8 mmol/L (21.0-32.0); CREATININE 0.9 mg/dL (0.6-1.0); EST CRCL DRUG DOSING (CG) 44.03 mL/min; POTASSIUM,K 3.9 mmol/L (3.5-5.1); PROTEIN TOTAL,TP 6.8 g/dL (6.4-8.2)
== END 2023-06-19 03:05 | disposition home or self-care (01) ==
LOC: MW.ED 01:10
DX: I10 Essential (primary) hypertension (principal); E78.00 Pure hypercholesterolemia, unspecified; M19.90 Unspecified osteoarthritis, unspecified site; Z79.82 Long term (current) use of aspirin; Z79.899 Other long term (current) drug therapy; Z91.041 Radiographic dye allergy status
CPT/HCPCS: 36415; 70450; 80053; 84484; 85025; 93005; 99284; A9270; 93010; 99283

== ENCOUNTER 2024-02-16 07:15 | Emergency (ER) | payer MEDICARE, OTHER ==
[2024-02-16] MEDS ORDERED: Sodium Chloride 0.9% 10 ML Syringe FLUSH PRN (07:18)
[2024-02-16] MEDS ORDERED: Sodium Chloride 0.9% 2.5 ML Syringe FLUSH PRN (07:18)
[2024-02-16 07:45] LABS: BASOPHILS ABSOLUTE AUTO 0.05 K/uL (0.00-0.20); BASOPHILS PERCENT AUTO 0.9 % (0.0-1.0); EOSINOPHILS ABSOLUTE AUTO 0.15 K/uL (0.00-0.45); EOSINOPHILS PERCENT AUTO 2.8 % (0.0-6.0); HEMATOCRIT 43.5 % (37.0-47.0); HEMOGLOBIN 14.5 g/dL (12.0-16.0); IMMATURE GRAN ABSOLUTE AUTO 0.01 K/uL (0.00-0.05); IMMATURE GRAN PERCENT AUTO 0.2 % (0.0-0.4); LYMPHOCYTES ABSOLUTE AUTO 1.65 K/uL (1.00-4.80); LYMPHOCYTES PERCENT AUTO 30.9 % (24.0-44.0); MEAN CORPUSCULAR HGB CONC 33.3 g/dL (32.0-36.0); MEAN CORPUSCULAR VOLUME 92.9 fL (83.0-99.0); MEAN PLATELET VOLUME 9.1 fL (9.4-12.3); MONOCYTES ABSOLUTE AUTO 0.56 K/uL (0.00-0.80); MONOCYTES PERCENT AUTO 10.5 % (0.0-8.0); NEUTROPHILS ABSOLUTE AUTO 2.92 K/uL (1.80-7.70); NEUTROPHILS PERCENT AUTO 54.7 % (41.0-71.0); PLATELET COUNT,PLT 279 K/uL (150-400); RED BLOOD CELL COUNT 4.68 M/uL (4.10-5.30); WHITE BLOOD CELL COUNT,WBC 5.34 K/uL (3.9-11.3)
[2024-02-16 08:08] LABS: ALBUMIN 3.6 g/dL (3.4-5.0); BILIRUBIN TOTAL 0.6 mg/dL (0.2-1.0); CALCIUM 9.7 mg/dL (8.5-10.1); CARBON DIOXIDE,CO2 29.2 mmol/L (21.0-32.0); CREATININE 0.8 mg/dL (0.6-1.0); EST CRCL DRUG DOSING (CG) 48.8 mL/min; POTASSIUM,K 4.1 mmol/L (3.5-5.1); PROTEIN TOTAL,TP 7.1 g/dL (6.4-8.2)
[2024-02-16] MEDS: amLODIPine 2.5 MG Tab PO ONE (08:16)
== END 2024-02-16 08:40 | disposition home or self-care (01) ==
LOC: MW.ED 07:15
DX: I10 Essential (primary) hypertension (principal); Z86.79 Personal history of other diseases of the circulatory system; Z91.041 Radiographic dye allergy status; Z79.82 Long term (current) use of aspirin; Z79.899 Other long term (current) drug therapy; Z75.8 Other problems related to medical facilities and other health care
CPT/HCPCS: 36415; 71045; 80053; 84484; 85025; 93005; 99284; A9270; 93010; 99283

== ENCOUNTER 2024-12-13 14:27 | Emergency (ER) | payer MEDICARE, OTHER ==
[2024-12-13 15:00] LABS: BASOPHILS ABSOLUTE AUTO 0.03 K/uL (0.00-0.20); BASOPHILS PERCENT AUTO 0.5 % (0.0-1.0); EOSINOPHILS ABSOLUTE AUTO 0.03 K/uL (0.00-0.45); EOSINOPHILS PERCENT AUTO 0.5 % (0.0-6.0); HEMATOCRIT 42.2 % (37.0-47.0); HEMOGLOBIN 13.8 g/dL (12.0-16.0); IMMATURE GRAN ABSOLUTE AUTO 0.01 K/uL (0.00-0.05); IMMATURE GRAN PERCENT AUTO 0.2 % (0.0-0.4); LYMPHOCYTES ABSOLUTE AUTO 1.73 K/uL (1.00-4.80); LYMPHOCYTES PERCENT AUTO 28.6 % (24.0-44.0); MEAN CORPUSCULAR HEMOGLOBIN 29.4 pg (28.0-32.0); MEAN CORPUSCULAR HGB CONC 32.7 g/dL (32.0-36.0); MEAN PLATELET VOLUME 8.8 fL (9.4-12.3); MONOCYTES ABSOLUTE AUTO 0.48 K/uL (0.00-0.80); MONOCYTES PERCENT AUTO 7.9 % (0.0-8.0); NEUTROPHILS ABSOLUTE AUTO 3.77 K/uL (1.80-7.70); NEUTROPHILS PERCENT AUTO 62.3 % (41.0-71.0); PLATELET COUNT,PLT 296 K/uL (150-400); RED BLOOD CELL COUNT 4.69 M/uL (4.10-5.30); WHITE BLOOD CELL COUNT,WBC 6.05 K/uL (3.9-11.3)
[2024-12-13 15:41] LABS: A/G RATIO 1.1 (0.9-1.6); ALBUMIN 3.8 g/dL (3.4-5.0); BILIRUBIN TOTAL 0.8 mg/dL (0.2-1.0); CALCIUM 9.4 mg/dL (8.5-10.1); CREATININE 0.9 mg/dL (0.6-1.0); EST CRCL DRUG DOSING (CG) 42.72 mL/min; POTASSIUM,K 3.9 mmol/L (3.5-5.1); PROTEIN TOTAL,TP 7.4 g/dL (6.4-8.2)
[2024-12-13] MEDS: Lidocaine 4% Patch TOP STA (17:19)
[2024-12-13] MEDS: Aspirin 81 MG Tab.Chew PO ONE (17:19)
== END 2024-12-13 17:50 | disposition left against medical advice (07) ==
LOC: MW.ED 14:27
DX: R07.9 Chest pain, unspecified (principal); I10 Essential (primary) hypertension; Z75.8 Other problems related to medical facilities and other health care; Z91.041 Radiographic dye allergy status; Z79.82 Long term (current) use of aspirin; Z79.899 Other long term (current) drug therapy
CPT/HCPCS: 36415; 71045; 80053; 83690; 83735; 84484; 85025; 87428; 93005; 99285; A9270; 93010; 99283